=== PATIENT | female | born 1940 | race Caucasian/White ===

== ENCOUNTER 2018-01-19 13:00 | Outpatient (RCR) | payer MEDICARE, OTHER, SELFPAY ==
--- NOTE | 2017-11-21 13:46 | HP.PTEVAL_ITS ---
Patient's Visit Information MIRIAM DURHAM is a 77 year old F referred to Physical Therapy by JOHN Aleman NP.LCODY with a diagnosis of RIGHT TKR. Date of Evaluation: 11/21/17 Physical Therapist: Tarah Fang - Visit Plan Frequency: 2-3x /Week Duration: 4-6 Weeks Plan: GAIT AND TRANSFER TRAINING. RIGHT LE ROM, STRETCHING AND STRENGTHEING. HEP INSTRUCTION. CP NEEDED. - Subjective Subjective: THIS PATIENT PRESENTS TO PT S/P RIGHT TKR 11/08/[address] JAY FOLLOWED BY REHAB ON FOURTH FLOOR AT [facility] UNTIL ABOUT A WEEK AGO. STATES SHE IS DOING GREAT AND ONLY STAYED ON REHAB ABOUT 4 DAYS. 2 CEMENT STEPS WITH RAILING INTO HOME ONE WAY AND 2 STEPS IN THE SIDE DOOR TOO WITH POST TO HANG ON TO. RIGHT NOW SHE IS ON ONE FLOOR AT HER HOME BUT THE HOUSE IS 1.5 STORIES. PATIENT REPORTS SHE HAS BEEN DOING HER EX'S SOMETIMES BUT NONE YESTERDAY DUE TO HAVING A LOT OF COMPANY. SHE HASN'T DONE ANY EX'S LYING DOWN SINCE SHE GOT HOME. SHE REPORTS HER RIGHT KNEE ACHES AND IT IS OUCHY GETTING UP AND DOWN BUT FINE ONCE SHE STARTS WALKING. SHE REPORTS SHE PINCHED SOMETHING IN HER RIGHT BUTTOCK AREA WHILE ON REHAB FLOOR BUT IT HAS EASED UP NOW. 1/10 RIGHT BUTTOCK PAIN NOW AT WORST BUT 0/10 WHEN SHE GETS UP AND GETS THE PRESSURE OFF. RIGHT KNEE PAIN AT WORST 3/10, LEAST 0/10. PATIENT REPORTS SHE HAS A BLISTER AT THE BOTTOM OF HER INCISION THAT IS GETTING BETTER AND THE DOCTOR IS AWARE OF THE BLISTER. OVER-ALL SHE REPORTS EVERYTHING IS FINE FAR SHE KNOWS AND SHE FEELS LIKE SHE IS DOING REALLY GOOD. STATES SHE HAS LESS PAIN NOW THAN BEFORE THE SURGERY. STATES SHE IS HAVING SWELLING IN BOTH OF HER LEGS BUT SHE HAD IT BEFORE SURGERY TOO. PMH: NIDDDM, HYPOTHYROIDISM, HTN, CHRONIC LEFT ANKLE EDEMA FROM OLD INJURY. - Objective THIS PATIENT AMBULATES INDEP'LY INTO PT WITH A FRONT WHEELED WALKER LIMPING ON THE RIGHT LE. SHE HAS A MODERATE AMOUNT OF EDEMA IN HER RIGHT KNEE AND MILD TO MODERATE RIGHT LOWER LEG AND ANKLE EDEMA. HER INCSION LOOKS TO BE WELL HEALING WITHOUT ANY SIGNS OF INFECTION. THE BLISTER MEDIAL TO THE DISTAL 1/3 OF HER INCISION ALSO LOOKS TO BE HEALING. SHE DENIES ANY NUMBNESS AROUND THE KNEE WITH LIGHT TOUCH SENSATION TESTING. LLE STRENGTH: HIP 4-/5, KNEE 4/5, ANKLE 5/ 5. RIGHT HIP 3+/5, KNEE EXT 2+/5, KNEE FLEX 3-/5, ANKLE 5/5. RIGHT KNEE ROM: 25 DEG EXTENSOR LAG IN SITTING. -18 DEG EXT TO 76 DEG FLEX IN SUPINE WITH A HEEL SLIDE. PATIENT HAS DECREASED HEP KNOWLEDGE AND COMPLIANCE. TREATMENT: PATIENT WAS INSTRUCTED IN SUPINE AP'S, QS'S, GS'S, HEEL SLIDES, HIP ABD AND SLR' S. STANDING EX'S REVIEWED. - Goals Goal 1:: DECREASE C/O RIGHT KNEE ACHING Goal Time Frame: 4-6 Weeks Goal 2:: IMPROVE STANDING, WALKING, STAIR CLIMBING, AND ADL FUNCTION Goal Time Frame: 4-6 Weeks Goal 3:: INDEP AND SAFE GAIT WITH LEAST ASSISTIVE DEVICE ON STEPS AND LEVEL SURFACES Goal Time Frame: 4-6 Weeks Goal 4:: INCREASE FUNCTION STRENGTH OF RIGHT LE BY ONE GRADE Goal Time Frame: 4-6 Weeks Goal 5:: INCREASE FUNCTION ROM OF RIGHT KNEE TO FULL EXT AND 100 DEG FLEX Goal Time Frame: 4-6 Weeks - Rehabilitation Potential Rehabilitation Potential: Good - Anticipated Interventions Patient/Client Instruction: Educate patient on: Condition, Plan of Care, Risk Factors, Benefits of Fitness Program For the Purpose of:: To improve self management Therapeutic Exercise to Include: Strength training, Flexibilty training, Gait and locomotor training, Active ROM For the Purpose of:: To increase ROM, To improve muscle performance and motor function, To improve ability to perform ADL's, To improve gait and locomotor functions, To increase flexibility/ROM Cryotherapy (ice pack, ice massage): Yes For the Purpose of:: To decrease pain, To decrease swelling/inflammation Thank you for the opportunity to evaluate your patient. For Medicare and Medicare HMO plans, please review the plan of care and approve it. It will need to be FAXED BACK to us at [phone] for Medicare purposes. Please let me know if there are questions or concerns regarding this plan of care. Physician Signature: Date:
--- NOTE | 2018-01-19 13:21 | HP.PTDCSUM ---
HP - PT D/C Summary It has been my pleasure to treat MIRIAM DURHAM under orders from Eloisa Person, WYATTC, NOMAN for the diagnosis of RIGHT TKR for a total of 17 visit(s). Discharge Date: Please see the following information for a summary of their discharge status. - Subjective Subjective: PATIENT REPORTS SHE IS DOING MUCH BETTER. REPORTS SHE IS ABLE TO DO EVERYTHING SHE NEEDS TO DO AROUND HOME. STATES SHE IS DOING HER HOME PROGRAM ONCE A DAY WITHOUT ANY PROBLEMS BUT THEY ARE CHALLENGING. PATIENT REPORTS SHE APPRECIATES ALL THE GOOD TREATMENT SHE HAS RECEIVED. - Pain Right Knee Pain Intensity (Out of 10): 2 - Overall Improvement % Improvement: 85 - Objective Objective/Function: ALL GOALS MET. RIGHT KNEE ROM IN SUPINE WITH A HEEL SLIDE = -2 DEG EXT TO 112 DEG FLEX WITH PAIN AT THE END OF THE AVAILABLE RANGE. RECOMMEND D/C TO HEP. LEFS HAS IMPROVED FROM 66 TO 70 - Goals Goal 1:: DECREASE C/O RIGHT KNEE ACHING Goal Progress: Goal Met Goal 2:: IMPROVE STANDING, WALKING, STAIR CLIMBING, AND ADL FUNCTION Goal Progress: Goal Met Goal 3:: INDEP AND SAFE GAIT WITH LEAST ASSISTIVE DEVICE ON STEPS AND LEVEL SURFACES Goal Progress: Goal Met Goal 4:: INCREASE FUNCTION STRENGTH OF RIGHT LE BY ONE GRADE Goal Progress: Goal Met Goal 5:: INCREASE FUNCTION ROM OF RIGHT KNEE TO FULL EXT AND 100 DEG FLEX Goal Progress: Goal Met - Plan Plan: D/C TO INDEP HEP. PATIENT IS AGREEABLE TO DISCHARGE. - D/C Information If there are questions or concerns regarding this patient's physical therapy, please feel free to call me at [phone]. Thank you for the referral of this patient. Sincerely, Tarah Fang
== END 2018-01-19 13:26 | disposition home or self-care (01) ==
LOC: PT 13:00
PROVIDERS: Family Provider Family Medicine; PCP Family Medicine; Visit Provider Nurse Practitioner Acute Care
DX: M17.11 Unilateral primary osteoarthritis, right knee (principal); Z96.651 Presence of right artificial knee joint; Z47.1 Aftercare following joint replacement surgery
CPT/HCPCS: 97110; 97530

== ENCOUNTER 2019-11-26 05:23 | Observation (INO) | payer MEDICARE, OTHER, SELFPAY ==
[2019-11-09 13:17] VITALS: BP 134/76; PULSE 82; RESP 16; TEMP 36.5; O2SAT 95; BMI 30.7
--- NOTE | 2019-11-09 13:31 | SDCEKG_ITS ---
Test Reason : Blood Pressure : / mmHG Vent. Rate : 060 BPM Atrial Rate : 060 BPM P-R Int : 198 ms QRS Dur : 092 ms QT Int : 408 ms P-R-T Axes : 060 -48 035 degrees QTc Int : 408 ms Normal sinus rhythm Left anterior fascicular block Abnormal ECG Confirmed by TOMMIE MARTINEZ, WINTER ([id number]), science editor HARDIK LEDESMA ([id number]) on 11/15/2019 9:05:46 AM Referred By: Meet Barker Confirmed By:WINTER REILLY MD
[2019-11-09 15:16] LABS: Hematocrit 43.4 % (37-47); Hemoglobin 14.1 g/dL (12.0-15.0); Mean Corp Hgb Conc 32.5 g/dL (32-36); Mean Corpuscular Hgb 30.7 pg (27.0-32.0); Mean Corpuscular Volume 94.6 fL (81-99); Mean Platelet Vol. 10.7 fl (6.2-12.0); Platelet Count 262 K/mm3 (150-450); RBC Distribution Width CV 13.1 % (11.6-14.6); RBC Distribution Width SD 44.8 fl (35.1-43.9); Red Blood Count 4.59 M/mm3 (4.2-5.4); White Blood Count 8.9 K/mm3 (4.4-11.0)
[2019-11-09 15:40] LABS: Anion Gap 3 (5-15); BUN 10 mg/dL (7-18); BUN/Creat Ratio 14.1 RATIO (10-20); Calcium,Total 9.7 mg/dL (8.5-10.1); Chloride 105 mmol/L (98-107); Creatinine, Serum 0.71 mg/dL (0.55-1.02); EST Glomerular Filtration Rate 84 mL/min (>60); Est Glom Filt Rate - Afr Amer 102 mL/min (>60); Glucose 108 mg/dL (74-106); Sodium Level 140 mmol/L (136-145); Thyroid Stim Hormone (TSH) 2.37 uIU/mL (0.358-3.74)
[2019-11-09 15:45] LABS: Hemoglobin A1c 7.3 % (4.2-6.3)
[2019-11-26] VITALS (12 sets, daily range): BP systolic 100–159; BP diastolic 52–86; PULSE 59–81; RESP 16–18; TEMP 36.2–36.9; O2SAT 89–100; BMI 30.7
[2019-11-26] MEDS: Scopolamine 1mg/72hr Patch 1 PATCH TRANSDERM. (05:55)
[2019-11-26] MEDS: Lactated Ringers 1,000 ML 100 ML IV ×2 (06:00→09:44)
[2019-11-26] MEDS: Magnesium Sulfate 4gm/100mL 4 GM/100 ML IV.SOLN. IV (06:08)
[2019-11-26] MEDS: Acetaminophen 500 MG Tablet 1000 MG PO ×2 (06:08→21:00)
[2019-11-26] MEDS: Celecoxib 200 MG Capsule 400 MG PO (06:10)
[2019-11-26] MEDS: Gabapentin 600 MG Tablet PO (06:10)
[2019-11-26 06:46] LABS: Bedside Glucose 186 mg/dL (70-110)
[2019-11-26] MEDS: Cefazolin 2 GM in 0.9% Normal Saline 100 ML IV (07:15)
--- NOTE | 2019-11-26 07:15 | KNEE_PTH ---
PATIENT: MIRIAM DURHAM LOC: MS3 U#:[id number] AGE/SX: 79/F ROOM: MS315 RE11/26/[address]: Dr. Meet Barker MD : [id number] BED: 1 DIS: 11/27/2019 SPEC #: [id number] RECD: 11/26/19 13:25 STATUS: SU REQ #: [id number] TRACY: 11/26/19 07:[address]: Meet Barker DEPT: SURGICAL PATHOLOGY RECD BY: Mayi Madden ENTERED: 11/26/19 14:47 SP TYPE: TOTAL KNEE OTHR DR: MD Dr. Han Arevalo MD Tissues: Knee, NOS Procedures: Decalcification bone/plaque Surgery Specimen Level IV HEADER OPERATION: Total knee replacement PRE-OP DIAGNOSIS: Osteoarthritis left knee TISSUE SUBMITTED: Left knee bone and tissue MICROSCOPIC DIAGNOSIS Left knee bone and tissue, total knee replacement/resection: Pieces of bone with degenerative osteoarthritic changes. Fibroadipose tissue, fibroconnective tissue and reactive synovial tissue. RADHA:kelsie 11/29/19 MICROSCOPIC DESCRIPTION Slides are reviewed. GROSS DESCRIPTION Received is one container designated bone and soft tissue left knee. The specimen consists of multiple fragments of ritchie-yellow bone measuring in aggregate 12 x 9 x 3 cm. Also in the specimen container are multiple fragments of yellow-white soft tissue measuring in aggregate 7 x 7 x 2 cm. A number of bony fragments contain articular surfaces consistent with tibial plateau and femoral condyle and displaying prominent osteophyte formation, eburnation, and bone erosion. Palliative Nurse sections are submitted in two cassettes as follows: 1 - soft tissue, 2 - bone after decalcification. / RADHA:kelsie 11/26/19 TC:5 [facility]: [id number], [id number]
--- NOTE | 2019-11-26 07:20 | RAD_ITS ---
STUDY: X-RAY - LEFT KNEE REASON FOR EXAM: Female, 79 years old. Post op left total knee TECHNIQUE: 2 view(s) of the knee. COMPARISON: None. FINDINGS: Normal visualized distal femur. Normal visualized proximal tibia and fibula. Normal proximal tibiofibular articulation. The patient is status post left total knee replacement. There is good alignment. Postoperative soft tissue changes. RAD/Knee 1 or 2 Views IMPRESSION: Status post total knee replacement. There is good alignment. Postoperative soft tissue changes. Electronically Signed: Fernando Acosta, at 12:39 EST , Service support ,
--- NOTE | 2019-11-26 08:49 | PRO.PCM_ITS ---
Procedure Report Date of Procedure: 11/26/19 Preoperative diagnosis: Left knee severe primary osteoarthritis Postoperative diagnosis: Same Title of procedure : Left total knee replacement Surgeon: Meet Barker MD Baby Registry Sales Consultant: Gayathri Friedman PA-C Anesthesia: Spinal with adductor canal nerve block Anesthesiologist: Dr. Junie QUAN 50 Complications none Special medications: Ancef, tranexamic acid Indications for surgery: Patient is a 79-year-old [female] with a history of knee arthritis appropriately treated and failed conservative measures and wished to proceed with total knee replacement. Patient was cleared for surgery by the medical doctor and has been evaluated by the anesthesia staff Findings: Intraoperative findings showed severe arthritis of the knee. Patient underwent knee replacement using [employer] total knee components. Size [5] femur, size [4] tibia, [32 x 9] asymmetric X3 patella, size [4-16 CS] X3 tibial polyethylene insert, knee was nicely balanced. Patella tracked well. Patient underwent standard wound closure in layers. Vicryl and strata fix sutures utilized. car rental sales assistant, physician assistant therapy aide, was utilized throughout the entire procedure. They were vital in helping with patient positioning, holding of retractors, exposing the tissues adequately for safe completion of the procedure including cutting of the bone, helping nanotechnology engineering technician appropriate alignment and sizing of the components, implantation of the components, as well as wound closure, bandage application, and safe patient transfer. Without surgical services asst, physician assistant therapy aide, surgical time would have been significantly increased, and surgical outcome could have been less optimal. Description of procedure: The patient was taken to the OR, transferred to the OR table. They were given a spinal anesthetic. Ancef was given IV preoperatively. Tranexamic acid was given IV preoperatively. Well-padded tourniquet was applied to the upper thigh of the operative leg. Nonoperative leg had a PEGGY hose and SCD on throughout. Operative limb was prepped padded and draped in usual orthopedic sterile fashion for the procedure. We began by injecting the pain relieving solution in the anterior superior aspect of the knee region. The limb was exsanguinated, and the tourniquet was applied to 300 mmHg. Made a midline incision through skin, subcutaneous tissue, bringing down us on the extensor mechanism. Medial parapatellar arthrotomy was carried out. Straw-colored joint fluid was evacuated. We raised a sleeve of tissue off the upper medial tibia. Resected some of the infrapatellar fat pad. We remove degenerative medial and lateral meniscus. Removed bone spurs from about the joint. We removed tissue off the anterior aspect of the distal femur. Patella was translated laterally and/or everted as needed throughout the procedure. ACL was resected. PCL was preserved. Collateral ligaments were preserved. Physician placed the retractors and assistant therapy aide held retractors protecting above ligaments throughout the procedure. Drill was placed up the distal femur. Flex guide tequila was stefani alba up the femoral canal. We resected 8 mm off of the distal femur. 6? valgus cut. Next cutting block was applied to the front of the femur. 3? of external rotation . We sized off that block and decided on the appropriate size femur. 4-in-1 cutting block was applied to the distal femur and held in place with 2 pins. Baby Registry Sales Consultant again held retractors to protect the soft tissues while surgeon performed anterior, posterior, and chamfer cuts. Bony fragments were removed. PCL retractor was placed and collateral ligament protectors placed by the surgeon, held by the assistance. Tibial external alignment guide was utilized under standard technique going down the shaft of the tibia, to the base of the second metatarsal. Appropriate posterior slope was built in. Baby Registry Sales Consultant help nanotechnology engineering technician alignment. We went 2 mm off the deficient side of the tibia. Cutting block was held in place with 3 pins. Again checked the external alignment. Tibial cut carried out with a saw while the assistant therapy aide held retractors protecting the soft tissues about the anterior, medial, lateral, and posterior knee. Bone fragment removed. We then sized off the upper tibia with the help of the assistant therapy aide. We then checked flexion extension gaps finding them to be adequate and equal. Next the distal femoral trial was applied. Tibial tray was allowed to freefloat with a 9 mm insert. Knee was flexed and extended an external alignment guide is utilized. Tibial trial was pinned in place. Drill holes were placed into the distal femoral trial and it was removed. Punch was used on the upper tibial component and that was removed. The sclerotic bone was softened with a sharp pin. Bone spurs removed from the posterior medial and posterior lateral aspect of the femur while the assistant therapy aide lifted up on the d istal femur and exposed each compartment. Patella was everted and measured and appropriate resection was carried out while the assistant therapy aide held the guide and patella in good position. Patellar remnant measured to be at or just greater than 14 mm. Patella was sized. Clamp was utilized. 3 drill holes were placed through the clamp held by the assistant therapy aide. Trial patella was placed and removed. Bleeding was controlled at the back of the knee with the bovey. Posterior knee soft tissues were carefully injected with pain relieving solution. Components were checked and open. Two full batches of bone cement were mixed. Knee was thoroughly irrigated by the assistant therapy aide while surgeon fashioned a bone plug that was placed in the femoral canal hole. The bony surfaces cleaned and dried. When the cement was of the appropriate texture the tibia, femur, and then patella was cemented in place. Baby Registry Sales Consultant held retractors exposing the bony surfaces of the tibia and femur which were hammered in position. Patella clamped into position. The excess bone cement removed. A trial insert applied to the tibia. Knee was held in full extension while the cement hardened. While the cement was hardening pain relieving solution was injected throughout the knee. When cement was fully hardened tourniquet was deflated. We re-trialed with the help of the assistant therapy aide and then placed the appropriate sized polyethylene component. We thoroughly irrigated and debrided the knee. Bleeding controlled with the Bovie. Knee was again thoroughly irrigated. Patella noted to track nicely. We repaired the arthrotomy with a combination of #1 Vicryl and #2 strata fix. We did a mid layer of 1 Vicryl and #1 strata fix running. We then did inverted 2-0 vicryl . We then applied Steri-Strips over skin prep. Mepilex dressing applied. PEGGY hose and SCDs applied. Patient was awoken from their anesthetic, transferred back to their own bed and recovery room in satisfactory condition. Second dose of IV Tranexamic acid was given while closing wound. Patient was admitted, appropriate IV antibiotic to be utilized as well as medication for DVT prevention. Hopeful discharge tomorrow. Hospitalist service and Physical therapy will be consulted. This note was generated with [employer] dictation software. It may contain incorrect words, spelling, and punctuation that were not noted in checking the note before signing.
[2019-11-26 09:55] LABS: Bedside Glucose 119 mg/dL (70-110)
--- NOTE | 2019-11-26 11:59 | CON.PCM_ITS ---
Problem List (1) Osteoarthritis of left knee Status: Chronic Qualifiers: Osteoarthritis type: primary Qualified Code(s): M17.12 - Unilateral primary osteoarthritis, left knee (2) HLD (hyperlipidemia) Status: Chronic Qualifiers: Hyperlipidemia type: unspecified Qualified Code(s): E78.5 - Hyperlipidemia, unspecified (3) Hypothyroid Status: Chronic Qualifiers: Hypothyroidism type: unspecified Qualified Code(s): E03.9 - Hypothyroidism, unspecified (4) Diabetes mellitus Status: Chronic Qualifiers: Diabetes mellitus type: type 2 Diabetes mellitus terminologist insulin use: wi th terminologist use Diabetes mellitus complication status: with other specified complication Qualified Code(s): E11.69 - Type 2 diabetes mellitus with other specified complication; Z79.4 - assisted (current) use of insulin (5) HTN (hypertension) Status: Chronic Qualifiers: Hypertension type: essential hypertension Qualified Code(s): I10 - Essential (primary) hypertension Reason for Consult Date of Consultation: 11/26/19 Reason for Consultation: Medical consultation History of Present Illness: The patient is a 79 y/o F w/ PMHx: HTN, HLD, Diabetes mellitus type II, GERD, Hypothyroidism, L Knee OA who presents to the [facility] on 11/26/19 with history of ongoing discomfort, debility despite outpatient interventions w/ 11/26/[address] Barker. Per discussion there were no milton-operative events and EBL minimal. Patient initially following operative intervention on simple facemask but eventually weaned to room air felt likely secondary to anesthetics and pain regimen. From review of records preoperative hemoglobin A1c had been obtained and noted to be 7.3%. Hospitalist service consulted for medical management. Patient notes pain is well controlled currently and similar to even prior before the surgery although may be even lessened. She notes following her right total knee replacement she had significant discomfort and this is much less. She has been up and moving already with a wheeled walker with physical therapy. Past Medical History Past Medical History (Chronic Problems): Chronic Problems Osteoarthritis of left knee (Chronic) HLD (hyperlipidemia) (Chronic) Hypothyroid (Chronic) Diabetes mellitus (Chronic) HTN (hypertension) (Chronic) Allergies Penicillins Adverse Reaction (Verified 11/26/19 05:56) Diarrhea Home Medications: Ambulatory Orders Medication Instructions Recorded Levothyroxine [Synthroid] 88 mcg PO DAILY 04/01/14 Multivit-Min/FA/Lycopene/Lut 1 each PO DAILY 04/01/14 [Centrum Silver Tablet] metFORMIN HCl [Glucophage] 500 mg PO DAILY 04/01/14 Atorvastatin Calcium [Lipitor] 20 mg PO DAILY 10/21/17 L.acidoph,Paracasei, B.lactis 1 each PO DAILY 10/21/17 [Probiotic] Lisinopril [Zestril] 5 mg PO DAILY 10/21/17 Loperamide [Imodium] 2 mg PO DAILY PRN 10/21/17 Acetaminophen [Tylenol Tablet] 650 mg PO Q6H PRN PRN tablet 11/15/17 Omeprazole 20 mg PO DAILY 11/09/19 Oxybutynin [Ditropan] 5 mg PO QHS 11/09/19 Surgical History: - - BLTL, now BL TKR, most recent L TKR during current admission. Psychiatric History: No pertinent psych hx [employer] INSPECTOR History: No pertinent [employer]PECTOR history Lives: Alone Smoking Status: Former smoker - Quit approximately 8 to 9 years prior with intermittent 1 pack/day tobacco usage since the age of 12. 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 Drugs: None - *Family History Maternal History Items: Hypertension, Stroke Paternal History Items: - - Patient's father with history of depression and anxiety status post suicide, no significant history of heart disease, diabetes, cancer otherwise. Review of Systems Constitutional: Reports: Weakness, Fatigue. Denies: Anorexia, Chills, Fever, Malaise, Weight Change HEENT: Reports: Hard of Hearing. Denies: Head Aches, Sinus Congestion, Sinus Drainage Cardiovascular: Denies: Chest Pain, Palpitations Respiratory: Denies: Cough, Shortness of breath at rest, Sputum production Gastrointestinal: Denies: Abdominal Pain, Nausea, Vomiting Genitourinary: Denies: Dysuria Musculoskeletal: Reports: Joint Pain, Joint stiffness, Joint swelling, Joint Tenderness, Leg Pain Skin: Reports: Skin Changes. Denies: Rash, Wounds Neurological: Denies: Numbness, Tingling, Focal weakness Psychiatric: Denies: Anxiety, Depression, Homicidal Ideations, Suicidal Ideations Hematologic/ Lymphatic: Denies: Easy Bruising, Easy Bleeding Subjective: Seated upright in the bedside chair, no acute distress, pain controlled. Objective: Physical Examination: General: awake, alert, oriented x 3 and cooperative, seated upright in bedside chair, no acute distress, baseline hard of hearing. Skin: normal color, turgor, no icterus, cyanosis with dressing in place, clean, dry, intact status post recent left total knee replacement. HEENT: AT/NC, EOMI, PERRLA, MMM. Lungs: CTA bilaterally, moderate effort, mild decrease BL bases, no rales, ronchi or wheezing. Heart: Regular rate and rhythm; no gallop, rub audible. Abdomen: soft, pes, NTTP, ND, normal BS. Extremities: no cyanosis, clubbing, see skin, mild bilateral lower extremity ankle edema, left greater than right, none markedly pitting status post recent left total knee replacement as noted above. Neurological: patient awake, alert, oriented x 3; cognitive function intact; pupils equally reactive to light and accomodation; cranial nerves II-XII grossly normal, moving all 4 extremities although some expected reduction left lower extremity status post recent left total knee replacement, strength moderately to severely global decrease secondary to recent interventions. Psychiatric: affect appears normal, no acute evidence of depressive or anxiety feelings. - Physical Exam Vitals/I&O's: Vital Signs Temp Pulse Resp BP Pulse Ox 97.4 F L 59 L 18 126/63 H 100 11/26/19 10:48 11/26/19 10:48 11/26/19 10:48 11/26/19 10:48 11/26/19 10:48 Oxygen Flow Rate (L/min) 6 Oxygen Delivery Method Simple Mask Weight: 179 lb 3.773 oz Body Mass Index (BMI) 30.7 Finger Stick Blood Glucose 119 Intake and Output for Last 24 Hours 11/24/19 11/25/19 11/26/19 23:59 23:59 23:59 Intake Total 1591.67 / 1591.67 Balance 1591.67 / 1591.67 Laboratory Results 11/26/19 06:05: POC Glucose 186 H 11/26/19 09:51: POC Glucose 119 H Current Medications Acetaminophen (Tylenol) 1,000 mg PO Q8 [facility] Aspirin (Aspirin, Baby) 81 mg PO BID [facility] Atorvastatin Calcium (Lipitor) 20 mg PO HS [facility] Lactated Ringer's () 1,000 mls @ 125 mls/hr IV .Q8H [facility] Cefazolin Sodium () 1 gm in 50 mls @ 150 mls/hr IV Q6H [facility] Stop: 11/27/19 01:34 Sodium Chloride () 250 mls @ 15 mls/hr IV .[id number] PRN PRN Reason: Saline Flush Sodium Chloride () 250 mls @ 15 mls/hr IV .[id number] PRN PRN Reason: Additional IVPB Infusion Insulin Human Lispro (Humalog Kwikpen (Bkc)) 1 - 6 unit SC Q4H PRN PRN; Protocol PRN Reason: BG>/= 180, SEE PROTOCOL Levothyroxine Sodium (Synthroid) 88 mcg PO DAILY@0600 [facility] Lisinopril (Zestril) 5 mg PO DAILY [facility] Loperamide HCl (Imodium) 2 mg PO DAILY PRN PRN Reason: Diarrhea Metformin HCl (Glucophage) 500 mg PO DAILYCM [facility] Morphine Sulfate () 2 - 4 mg IV Q2H PRN PRN PRN Reason: Pain Score 6-10/10 Ondansetron HCl (Zofran) 4 mg IV Q8H PRN PRN PRN Reason: NAUSEA Oxybutynin Chloride (Ditropan) 5 mg PO DAILY [facility] Oxycodone HCl (Oxyir) 5 - 10 mg PO Q4H PRN PRN PRN Reason: Pain Score 4-10/10 Pantoprazole Sodium (Protonix) 20 mg PO DAILY [facility] Senna/Docusate Sodium (Senokot-S, [place]-Colace) 2 tablet PO BID [facility] Sodium Chloride () 10 - 40 ml IV UD PRN PRN Reason: SALINE FLUSH Assessment/Plan All Active Problems Debility (Acute) The patient is a 79 y/o F w/ PMHx: HTN, HLD, Diabetes mellitus type II, GERD, Hypothyroidism, L Knee OA who presents to the [facility] on 11/26/19 with history of ongoing discomfort, debility despite outpatient interventions w/ 11/26/[address] Barker. 1. Severe Osteoarthritis, left knee: Failed conservative therapies and treatments, admitted per Dr. Barker for planned L TKR on 11/26/19, post-operative pain management, bowel regimen, DVT Prophylaxis, PT/OT/CM per Orthopedic surgery discretion. 2. Diabetes mellitus type II: Continued on patient home metformin per orthopedic surgery discretion, continue home insulin insulin sliding scale regimen, ADA diet, recent hemoglobin A1c 7.3%, encourage continued lifestyle and diet changes as needed. 3. Hypertension: Continue home regimen including lisinopril, PRN hydralazine. 4. Hyperlipidemia: Continue home statin regimen. 5. GERD: Continue home Protonix. 6. Hypothyroidism: Continue home synthroid regimen. 7. DVT prophylaxis: SCDs, aspirin 81 mg BID per orthopedic surgery discretion. Code Visit Office Visits / Consults: [id number] IP Consult L3
[2019-11-26 12:35] LABS: Bedside Glucose 119 mg/dL (70-110)
[2019-11-26] MEDS: metFORMIN HCl 500 MG Tablet PO (14:50)
[2019-11-26] MEDS: Cefazolin 1 GM/50 ML BAG IV ×2 (14:50→18:43)
[2019-11-26 16:36] LABS: Bedside Glucose 142 mg/dL (70-110)
[2019-11-26] MEDS: Lactated Ringers 1,000 ML 125 ML IV (17:21)
[2019-11-26] MEDS: Oxybutynin 5 MG Tablet PO (21:00)
[2019-11-26] MEDS: Atorvastatin Calcium 20 MG Tablet PO (21:00)
[2019-11-26] MEDS: Aspirin 81 MG TAB.CHEW PO (21:01)
[2019-11-26 21:40] LABS: Bedside Glucose 148 mg/dL (70-110)
[2019-11-27] MEDS: Cefazolin 1 GM/50 ML BAG IV (00:46)
[2019-11-27 02:15] VITALS: BP 137/69; PULSE 76; RESP 16; TEMP 36.8; O2SAT 93
[2019-11-27] MEDS: Levothyroxine 88 MCG Tablet PO (06:28)
[2019-11-27] MEDS: Acetaminophen 500 MG Tablet 1000 MG PO (06:28)
--- NOTE | 2019-11-27 06:30 | PN_ITS ---
Subjective: Patient doing well, pain controlled, currently icing and recent therapies with decent ambulation with plan discharge today with home therapies to which patient is amenable although mildly anxious. Patient notes that she will just use ice cubes at home and often Yovany wraps ice to the location which was encouraged to do routinely. Patient denies fevers, chills, nausea, emesis, abdominal pain, chest pain or dyspnea. Objective: Physical Examination: General: awake, alert, oriented x 3 and cooperative, seated upright in bedside chair, recent therapy, tolerated well, plan discharged home today which patient is amenable. Skin: normal color, turgor, no icterus, cyanosis with dressing in place, clean, dry, intact status post recent left total knee replacement. HEENT: AT/NC, EOMI, PERRLA, MMM. Lungs: CTA bilaterally, moderate effort, mild decrease BL bases, no rales, ronchi or wheezing. Heart: Regular rate and rhythm; no gallop, rub audible. Abdomen: soft, obese, NTTP, ND, normal BS. Extremities: no cyanosis, clubbing, see skin, mild bilateral lower extremity ankle edema, left greater than right, none markedly pitting status post recent left total knee replacement as noted above. Neurological: patient awake, alert, oriented x 3; cognitive function intact; pupils equally reactive to light and accomodation; cranial nerves II-XII grossly normal, moving all 4 extremities although some expected reduction left lower extremity status post recent left total knee replacement, strength improving, moderately to globally decreased secondary to recent interventions. Psychiatric: affect appears currently fatigued, recent therapies, no acute evidence of depressive or anxiety feelings. Vitals/I&O's: Vital Signs Temp Pulse Resp BP Pulse Ox 98.3 F 76 16 137/69 H 93 11/27/19 02:15 11/27/19 02:15 11/27/19 02:15 11/27/19 02:15 11/27/19 02:15 Oxygen Flow Rate (L/min) 1 Oxygen Delivery Method Nasal Cannula Weight: 179 lb 3.773 oz Body Mass Index (BMI) 30.7 Finger Stick Blood Glucose 119 Intake and Output for Last 24 Hours 11/25/19 11/26/19 11/27/19 23:59 23:59 23:59 Intake Total 3173.18 / 3773.18 1135.75 / 1135.75 Balance 3173.18 / 3773.18 1135.75 / 1135.75 Laboratory Results 11/26/19 06:05: POC Glucose 186 H 11/26/19 09:51: POC Glucose 119 H 11/26/19 12:26: POC Glucose 119 H 11/26/19 16:31: POC Glucose 142 H 11/26/19 21:34: POC Glucose 148 H 11/27/19 05:58: WBC Pending, RBC Pending, Hgb Pending, Hct Pending, MCV Pending, MCH Pending, MCHC Pending, RDW Std Deviation Pending, RDW Coeff of Jameson Pending, Plt Count Pending 11/27/19 05:58: Sodium Pending, Potassium Pending, Chloride Pending, Carbon Dioxide Pending, Anion Gap Pending, BUN Pending, Creatinine Pending, Est GFR (MDRD) Af Amer Pending, Est GFR (MDRD) Non-Af Pending, BUN/Creatinine Ratio Pending, Glucose Pending, Calcium Pending Current Medications Acetaminophen (Tylenol) 1,000 mg PO Q8 [facility] Last Admin: 11/26/19 21:00 Dose: 1,000 mg Documented by: Aspirin (Aspirin, Baby) 81 mg PO BID [facility] Last Admin: 11/26/19 21:01 Dose: 81 mg Documented by: Atorvastatin Calcium (Lipitor) 20 mg PO HS [facility] Last Admin: 11/26/19 21:00 Dose: 20 mg Documented by: Lactated Ringer's () 1,000 mls @ 125 mls/hr IV .Q8H [facility] Last Admin: 11/27/19 02:24 Dose: Not Given Documented by: Sodium Chloride () 250 mls @ 15 mls/hr IV .[id number] PRN PRN Reason: Saline Flush Sodium Chloride () 250 mls @ 15 mls/hr IV .[id number] PRN PRN Reason: Additional IVPB Infusion Insulin Human Lispro (Humalog Kwikpen (Bkc)) 0 unit SC [facility]; Protocol Last Admin: 11/26/19 21:36 Dose: Not Given Documented by: Levothyroxine Sodium (Synthroid) 88 mcg PO DAILY@0600 [facility] Lisinopril (Zestril) 5 mg PO DAILY [facility] Loperamide HCl (Imodium) 2 mg PO DAILY PRN PRN Reason: Diarrhea Metformin HCl (Glucophage) 500 mg PO DAILYCM [facility] Last Admin: 11/26/19 14:50 Dose: 500 mg Documented by: Morphine Sulfate () 2 - 4 mg IV Q2H PRN PRN PRN Reason: Pain Score 6-10/10 Ondansetron HCl (Zofran) 4 mg IV Q8H PRN PRN PRN Reason: NAUSEA Oxybutynin Chloride (Ditropan) 5 mg PO DAILY@2200 [facility] Last Admin: 11/26/19 21:00 Dose: 5 mg Documented by: Oxycodone HCl (Oxyir) 5 - 10 mg PO Q4H PRN PRN PRN Reason: Pain Score 4-10/10 Pantoprazole Sodium (Protonix) 20 mg PO DAILY [facility] Senna/Docusate Sodium (Senokot-S, Ying-Colace) 2 tablet PO BID [facility] Last Admin: 11/26/19 21:01 Dose: Not Given Documented by: Sodium Chloride () 10 - 40 ml IV UD PRN PRN Reason: SALINE FLUSH Medical Necessity - Tobacco Use Smoking Status: Former smoker - Quit approximately 8 to 9 years prior with intermittent 1 pack/day tobacco usage since the age of 12. Tobacco Use: Non-smoker Assessment/Plan All Active Problems Debility (Acute) The patient is a 79 y/o F w/ PMHx: HTN, HLD, Diabetes mellitus type II, GERD, Hypothyroidism, L Knee OA who presents to the [facility] on 11/26/19 with history of ongoing discomfort, debility despite outpatient interventions w/ 11/26/[address] Barker. 1. Severe Osteoarthritis, left knee: Failed conservative therapies and treatments, admitted per Dr. Barker for planned L TKR on 11/26/19, post-operative pain management, bowel regimen, DVT Prophylaxis, PT/OT/CM per Orthopedic surgery discretion. Therapies progressing well, plan discharge today to which medicine service is amenable with planned outpatient therapies. 2. Diabetes mellitus type II: Continued on patient home metformin per orthopedic surgery discretion, continue home insulin insulin sliding scale regimen, ADA diet, recent hemoglobin A1c 7.3%, encouraged continued lifestyle and diet changes as needed. 3. Hypertension: Continue home regimen including lisinopril, PRN hydralazine. 4. Hyperlipidemia: Continue home statin regimen. 5. GERD: Continue home Protonix. 6. Hypothyroidism: Continue home synthroid regimen. 7. DVT prophylaxis: SCDs, aspirin 81 mg BID per orthopedic surgery discretion. Code Visit Inpatient E&M: 87507 Subs Hosp L2
[2019-11-27 06:32] LABS: Hematocrit 36.9 % (37-47); Mean Corp Hgb Conc 32.5 g/dL (32-36); Mean Corpuscular Hgb 30.4 pg (27.0-32.0); Mean Corpuscular Volume 93.4 fL (81-99); Mean Platelet Vol. 10.3 fl (6.2-12.0); Platelet Count 212 K/mm3 (150-450); RBC Distribution Width CV 13.1 % (11.6-14.6); RBC Distribution Width SD 44.9 fl (35.1-43.9); Red Blood Count 3.95 M/mm3 (4.2-5.4); White Blood Count 9.8 K/mm3 (4.4-11.0)
[2019-11-27] MEDS: Insulin Lispro 100 UNIT/ML INSULN.PEN SC ×2 (06:33→11:23)
--- NOTE | 2019-11-27 06:50 | PN.ORTHO_ITS ---
Subjective: Patient is doing well postop day #1 from a left total knee replacement. She started and worked with physical therapy yesterday. Pain in the left knee has been well controlled. She denies chest pain shortness of breath dizziness or calf pain seems to be doing well overall she would like to consider discharged home later today. Objective: Inspection of left lower extremity is without gross deformity there is a silver Mepilex dressing in place with thigh-high PEGGY stockings on without active drainage erythema warmth or signs of infection negative Susanna bilaterally without signs of DVT pedal pulses present and equal bilaterally sensation intact light touch. Patient is able to actively plantar and dorsiflex bilateral feet against resistance neurovascularly intact. - Physical Exam Vitals/I&O's: Vital Signs Temp Pulse Resp BP Pulse Ox 98.3 F 76 16 137/69 H 93 11/27/19 02:15 11/27/19 02:15 11/27/19 02:15 11/27/19 02:15 11/27/19 02:15 Oxygen Flow Rate (L/min) 1 Oxygen Delivery Method Nasal Cannula Weight: 81.3 kg Body Mass Index (BMI) 30.7 Finger Stick Blood Glucose 119 Intake and Output for Last 24 Hours 11/25/19 11/26/19 11/27/19 23:59 23:59 23:59 Intake Total 3173.18 / 3773.18 1135.75 / 1135.75 Balance 3173.18 / 3773.18 1135.75 / 1135.75 Laboratory Results 11/26/19 09:51: POC Glucose 119 H 11/26/19 12:26: POC Glucose 119 H 11/26/19 16:31: POC Glucose 142 H 11/26/19 21:34: POC Glucose 148 H 11/27/19 05:58: WBC 9.8, RBC 3.95 L, Hgb 12.0, Hct 36.9 L, MCV 93.4, MCH 30.4, MCHC 32.5, RDW Std Deviation 44.9 H, RDW Coeff of Jameson 13.1, Plt Count 212, MPV 10.3 11/27/19 05:58: Sodium Pending, Potassium Pending, Chloride Pending, Carbon Dioxide Pending, Anion Gap Pending, BUN Pending, Creatinine Pending, Est GFR (MDRD) Af Amer Pending, Est GFR (MDRD) Non-Af Pending, BUN/Creatinine Ratio Pending, Glucose Pending, Calcium Pending Current Medications Acetaminophen (Tylenol) 1,000 mg PO Q8 [facility] Last Admin: 11/27/19 06:28 Dose: 1,000 mg Documented by: Aspirin (Aspirin, Baby) 81 mg PO BID [facility] Last Admin: 11/26/19 21:01 Dose: 81 mg Documented by: Atorvastatin Calcium (Lipitor) 20 mg PO HS [facility] Last Admin: 11/26/19 21:00 Dose: 20 mg Documented by: Sodium Chloride () 250 mls @ 15 mls/hr IV .[id number] PRN PRN Reason: Saline Flush Sodium Chloride () 250 mls @ 15 mls/hr IV .[id number] PRN PRN Reason: Additional IVPB Infusion Insulin Human Lispro (Humalog Kwikpen (Bkc)) 0 unit SC [facility]; Protocol Last Admin: 11/27/19 06:33 Dose: 1 unit Documented by: Levothyroxine Sodium (Synthroid) 88 mcg PO DAILY@0600 [facility] Last Admin: 11/27/19 06:28 Dose: 88 mcg Documented by: Lisinopril (Zestril) 5 mg PO DAILY [facility] Loperamide HCl (Imodium) 2 mg PO DAILY PRN PRN Reason: Diarrhea [facility] Last Admin: 11/26/19 14:50 Dose: 500 mg Documented by: Morphine Sulfate () 2 - 4 mg IV Q2H PRN PRN PRN Reason: Pain Score 6-10/10 Ondansetron HCl (Zofran) 4 mg IV Q8H PRN PRN PRN Reason: NAUSEA Oxybutynin Chloride (Ditropan) 5 mg PO DAILY@2200 [facility] Last Admin: 11/26/19 21:00 Dose: 5 mg Documented by: Oxycodone HCl (Oxyir) 5 - 10 mg PO Q4H PRN PRN PRN Reason: Pain Score 4-10/10 Pantoprazole Sodium (Protonix) 20 mg PO DAILY [facility] Senna/Docusate Sodium (Senokot-S, Ying-Colace) 2 tablet PO BID [facility] Last Admin: 11/26/19 21:01 Dose: Not Given Documented by: Sodium Chloride () 10 - 40 ml IV UD PRN PRN Reason: SALINE FLUSH Medical Necessity - Tobacco Use Smoking Status: Former smoker - Quit approximately 8 to 9 years prior with intermittent 1 pack/day tobacco usage since the age of 12. Tobacco Use: Non-smoker Assessment/Plan All Active Problems Debility (Acute) 1. Status post left total knee replacement postop day #1 2. Continue OxyIR and Tylenol for pain control 3. Begin PT/OT weightbearing as tolerated left lower extremity with a walker 4. DVT prophylaxis bilateral teds SCDs and baby aspirin twice daily for 1 month postoperative 5. CBC results reviewed. BMP results still pending will review upon posting 6. Encourage incentive spirometry 7. Continue discharge planning with case management 9. Continue postoperative medical management per hospitalist 10. Patient is orthopedically stable and okay for discharge to home today if she is cleared medically having adequate pain control and doing well with physical therapy we will see her in the office 9 days postoperative for reassessment. Continue with tight glycemic control in the perioperative period
[2019-11-27 06:54] LABS: Anion Gap 5 (5-15); BUN 8 mg/dL (7-18); BUN/Creat Ratio 11.9 RATIO (10-20); Calcium,Total 8.2 mg/dL (8.5-10.1); Chloride 107 mmol/L (98-107); Creatinine, Serum 0.67 mg/dL (0.55-1.02); EST Glomerular Filtration Rate 90 mL/min (>60); Est Glom Filt Rate - Afr Amer 108 mL/min (>60); Glucose 143 mg/dL (74-106); Potassium 4.4 mmol/L (3.5-5.1); Sodium Level 140 mmol/L (136-145)
[2019-11-27 06:56] LABS: Bedside Glucose 162 mg/dL (70-110)
--- NOTE | 2019-11-27 06:58 | DCINST_ITS ---
Discharge Diet: 1800 Calorie Control Diet Discharge Activity: May Not Drive, May not drive while taking narcotic pain medications., Use Walker May shower in (days): 2 - Okay to shower over Mepilex dressing Ice area for (Minutes): 20 - every hour while awake. Weight Bearing Status: Weight bearing as tolerated Elevate: Operative Extremity Additional Activity Instructions:: Wear elastic stockings for 2 weeks after your surgery. See postoperative pink sheet Call your doctor if your incision/area has: Continuous Slow Oozing, Sudden Increased Bleeding, Increased Pain/ Swelling, Increased Redness, Foul Smelling Discharge Call your doctor if you observe: Fever of 101 or Higher, Coldness, Increased Pain, Numbness or Tingling, Change in Color, Shortness of breath, Chest pain, Calf discomfort, Uncontrolled pain Additional Dressing/Incision Instructions:: See postoperative pink sheet Allergies/Adverse Reactions: Allergies Penicillins Adverse Reaction (Verified 11/26/19 05:56) Diarrhea Medications to take at Discharge Levothyroxine [Synthroid] 88 mcg PO DAILY 04/01/14 Multivit-Min/FA/Lycopene/Lut [Centrum Silver Tablet] 1 each PO DAILY 04/01/14 metFORMIN HCl [Glucophage] 500 mg PO DAILY 04/01/14 Atorvastatin Calcium [Lipitor] 20 mg PO DAILY 10/21/17 L.acidoph,Paracasei, B.lactis [Probiotic] 1 each PO DAILY 10/21/17 Lisinopril [Zestril] 5 mg PO DAILY 10/21/17 Loperamide [Imodium] 2 mg PO DAILY PRN 10/21/17 Omeprazole 20 mg PO DAILY 11/09/19 Oxybutynin [Ditropan] 5 mg PO QHS 11/09/19 Acetaminophen [Tylenol] 1,000 mg PO Q8 #60 tab 11/27/19 Aspirin [Aspirin, Baby] 81 mg PO BID #60 tab.chew 11/27/19 Oxycodone [Oxyir] 5 - 10 mg PO Q4H PRN PRN 7 Days #56 tab 11/27/19 Senna/Docusate Sodium [Senokot-S] 2 tab PO BID #30 tab 11/27/19 The following prescriptions were given: Aspirin [Aspirin, Baby] 81 mg PO BID #60 tab.chew Prescription Printed Oxycodone [Oxyir] 5 - 10 mg PO Q4H PRN PRN 7 Days #56 tab PRN Reason: Pain Score 4-08/09 Prescription Printed Senna/Docusate Sodium [Senokot-S] 2 tab PO BID #30 tab Prescription Printed Acetaminophen [Tylenol] 1,000 mg PO Q8 #60 tab Prescription Printed Primary Care Physician: Han Conn MD [Primary Care Provider] - Test Results: Test results from this visit will be discussed in further detail at your follow- up appointment, if applicable. Proposed Discharge Date: 11/27/19
[2019-11-27 07:58] VITALS: BP 131/72; PULSE 85; RESP 16; TEMP 37.3; O2SAT 92
[2019-11-27] MEDS: Senna/Docusate Sodium 1 Tablet 2 TABLET PO (08:28)
[2019-11-27] MEDS: Pantoprazole Sodium 20 MG Tablet PO (08:28)
[2019-11-27] MEDS: metFORMIN HCl 500 MG Tablet PO (08:28)
[2019-11-27] MEDS: Aspirin 81 MG TAB.CHEW PO (08:28)
[2019-11-27] MEDS: Lisinopril 5 MG Tablet PO (08:29)
--- NOTE | 2019-11-27 10:40 | CASEMGMT ---
RN HAN Face to Face with patient for initial transition planning/care coordination assessment. RN CM introduced self and role at [facility]. Patient sitting in chair, alert and oriented, daughter at bedside. Patient willing to participate in assessment and is able to answer all questions appropriately. Care providers, pharmacy, and demographics verified. Patient wishes to discharge home and is setup with [facility] for outpatient therapy. Patient states she has no further needs or concerns at this time. CM to follow for discharge planning needs that may arise. PCP: Fabien Specialists: chava Barker Pharmacy: [facility] Insurance: [facility] Prescription Benefit: yes Living Will/HPOA: yes, daughter Nicki Sinclair LNOK: daughters Living Arrangements: Patient lives alone in 1.5 story house with bed and bath on first floor. 3 steps with railing to enter the home. Transportation: Daughter DME/HHC: Patient has walker, cane, BSC, and shower chair at home. Disposition Plan: Patient to discharge home with outpatient therapy, family support, and follow-up plans in place. Karena ZARAGOZA, RN, CM
[2019-11-27] MEDS: oxyCODONE 5 MG Tablet PO (11:22)
[2019-11-27 11:46] LABS: Bedside Glucose 171 mg/dL (70-110)
[2019-11-27 11:52] VITALS: BP 134/88; PULSE 94; RESP 16; TEMP 37.1; O2SAT 92
== END 2019-11-27 13:58 | disposition home or self-care (01) ==
LOC: MS3 11-27 08:02 → ACINP 11-27 09:57 → MS3 11-27 09:57
PROVIDERS: Admitting Provider Orthopaedic Surgery; Family Provider Family Medicine; PCP Family Medicine; Referring Provider Orthopaedic Surgery; Visit Provider Orthopaedic Surgery
PROC: (CPT 27447; principal; 2019-11-26 06:50)
DX: M17.12 Unilateral primary osteoarthritis, left knee (principal); E78.5 Hyperlipidemia, unspecified; E03.9 Hypothyroidism, unspecified; E11.9 Type 2 diabetes mellitus without complications; I10 Essential (primary) hypertension; Z79.899 Other long term (current) drug therapy; K21.9 Gastro-esophageal reflux disease without esophagitis; Z87.891 Personal history of nicotine dependence
CPT/HCPCS: 01400; 27447; 64447; 36415; 73560; 80048; 82962; 83036; 84443; 85027; 87081; 88305; 88311; 93005; 96361; 96365; 96366; 97110; 97161; 97166; 97530; 97535; 99218; 99251; C1776; J7120; G0378; G0379; G0463; J2405

== ENCOUNTER 2020-11-28 13:30 | Outpatient (RCR) | payer MEDICARE, OTHER, SELFPAY ==
[2019-11-26 10:48] VITALS: BMI 30.7
== END 2020-11-28 23:59 ==
LOC: IMMUN 13:30
PROVIDERS: PCP Family Medicine; Visit Provider Family Medicine
DX: Z23 Encounter for immunization (principal)
CPT/HCPCS: 0011A; 0012A; 91301

== ENCOUNTER 2022-10-26 07:20 | Inpatient (IN) | payer MEDICARE, OTHER, SELFPAY ==
[2022-10-26] VITALS (32 sets, daily range): BP systolic 88–195; BP diastolic 56–126; PULSE 72–136; RESP 12–42; TEMP 36.3–37.3; O2SAT 84–97; BMI 28.3
--- NOTE | 2022-10-26 07:34 | RAD_ITS ---
STUDY: X-RAY CHEST REASON FOR EXAM: Female, 82 years old. sob TECHNIQUE: Single AP portable view of the chest. COMPARISON: None. FINDINGS: Reticular interstitial opacities throughout the lungs consistent with interstitial pulmonary edema. There is no demonstrated pleural abnormality. There is moderate cardiac enlargement. Normal mediastinum and alida. There is prominence of the pulmonary hilar arteries and peripheral pulmonary arteries, consistent with congestive heart failure (CHF). There is atherosclerotic tortuosity of the aortic arch and descending thoracic aorta. Normal visualized thoracic spine. Normal visualized ribs, clavicles, and shoulders. There is no demonstrated abnormality of the visualized soft tissue structures of the upper abdomen. RAD/Chest 1 View (Portable) IMPRESSION: Moderate congestive heart failure. Electronically Signed: Benny Lucia MD at 8:56 EST ,
--- NOTE | 2022-10-26 07:35 | ED.VIS.DYS ---
HPI History of Present Illness Chief Complaint: Shortness of Breath Informant: patient, family and EMS Onset/Context/Timing Onset: Days (3) Context: gradual and onset Timing: Continuous Quality: Positive for - (can't breath) Current Severity: Severe Maximum Severity: Severe Worsened by: - (unk) Relieved by: Nothing Associated Symptoms Negative for cough Chest Pain: Positive for None Narrative Narrative: Patient presents by EMS in respiratory distress, hypoxic for them, states this started about 3 days ago and has progressively worsened with regards to dyspnea. No chest pain. She denies a cough or fevers, but she is not able to provide good history because she is so dyspneic. Daughter states she did not know any of this until this morning when the patient called and told her that she could not breathe. Patient denies a history of heart or lung problems that she knows of, she takes medications for diabetes. [facility] Medical History Diabetes Hypothyroidism Home Medications atorvastatin 20 mg tablet 20 mg PO DAILY 10/26/22 [History Last Taken Unknown] levothyroxine 88 mcg tablet 88 mcg PO DAILY 10/26/22 [History Last Taken Unknown] lisinopril 5 mg tablet 5 mg PO DAILY 10/26/22 [History Last Taken Unknown] metformin 500 mg tablet 500 mg PO DAILY 10/26/22 [History Last Taken Unknown] Allergy/AdvReac Type Severity Reaction Status Date / Time Penicillins [PCN] AdvReac Upset Verified 10/26/22 07:29 Stomach Social History Smoking Status: Unknown if ever smoked ROS ROS ED Review of Systems ROS Unobtainable: other Details: due to dyspnea/acuity Constitutional Constitutional ED: Reports malaise; Denies chills or fever(s) ENT ENT ED: Denies rhinorrhea or sore throat Cardiovascular Cardiovascular: Reports as per HPI and leg edema; Denies chest pain Respiratory/Chest Respiratory/Chest: Reports dyspnea; Denies cough or sputum EXAM Physical Exam Const Vital Signs: 10/26/22 07:22 10/26/22 07:26 10/26/22 07:27 Temperature 99 F Temperature Source Temporal Pulse Rate 136 H Respiratory Rate 42 H Respiratory Pattern Blood Pressure 195/126 H Blood Pressure Mean 149 Pulse Ox 87 88 89 Oxygen Delivery Method Room Air Nasal Cannula Nasal Cannula Oxygen Flow Rate (L/min) 2 4 Fraction of Inspired Oxygen (FIO2) 10/26/22 07:49 10/26/22 07:51 10/26/22 07:55 Temperature Temperature Source Pulse Rate 117 H Respiratory Rate 34 H Respiratory Pattern Tachypnea Blood Pressure Blood Pressure Mean Pulse Ox 96 96 Oxygen Delivery Method Bi-pap Bi-pap Oxygen Flow Rate (L/min) Fraction of Inspired Oxygen (FIO2) 60 10/26/22 07:40 10/26/22 08:13 10/26/22 08:51 Temperature Temperature Source Pulse Rate 117 H 109 H 114 H Respiratory Rate 34 H 36 H 26 H Respiratory Pattern Tachypnea Blood Pressure 171/88 H 141/85 H Blood Pressure Mean 115 103 Pulse Ox 93 93 Oxygen Delivery Method Bi-pap Bi-pap Oxygen Flow Rate (L/min) Fraction of Inspired Oxygen (FIO2) Positive well nourished and well developed Constitutional Narrative: In distress, diaphoretic, unable to get comfortable and anxious General Appearance ED: well developed HEENT Reports moist mucous membranes normocephalic and atraumatic Eyes PERRL and EOMs intact bilaterally Neck full ROM and supple Neck Narrative: +JVD Resp Resp Narrative: Acute respiratory distress speaking in 1-3 word sentences with bibasilar Rales and wheezes Auscultation: rales bilateral base Cardio regular rate and regular rhythm Rate: tachycardic GI non-tender and non-distended Auscultation: normoactive bowel sounds Palpation: soft Back/Spine no CVA tenderness General Back: other FROM Extremity normal to inspection General Extremety ED: Yes edema; Negative for pulses abnormal or tenderness General Extremity: edema bilateral lower extremity Details: mild; Negative for pulses abnormal Neuro oriented x3, CN's II-XII intact bilaterally and no sensory deficits noted Sensorium / Orientation: awake and alert Motor Exam: strength 5/5 throughout Psych Mood & Affect: anxious Skin no rashes or lesions noted and no wounds MDM MDM MDM Narrative Medical decision making narrative: Respiratory at the bedside just after my evaluation to perform aerosol, ABG, and BiPAP. Suspecting CHF initially, patient was additionally given IV Lasix 40 mg. The ABG was performed just prior to putting her on BiPAP. BiPAP is helping her respirations but she is still dyspneic, she is able to lie down with it. She has a significant respiratory acidosis, with hypercapnia. We have her oxygenating well and we titrated it down accordingly. While on BiPAP, her vital signs did improve, and her work-up is consistent with acute congestive heart failure; since her blood pressure at this time 0850 has come down to 141/85, I do not think we need to give her additional medications to help improve her blood pressure. Her troponin is elevated. She does have a leukocytosis and a lactic acidosis, however my interpretation of one-view portable chest x-ray is consistent with congestive heart failure more likely than infection. She is breathing much better on BiPAP does not require intubation right now luckily. Discussed with Dr. Cruz with cardiology, he will consult in the hospital, recommends no other medications or anticoagulation at this time. Lab Data Attestation: I reviewed the patient's lab results. Labs: Laboratory Results - last 24 hr 10/26/22 10/26/22 10/26/22 07:32 07:32 07:32 WBC 14.8 H RBC 4.76 Hgb 14.4 Hct 44.9 MCV 94.3 MCH 30.3 MCHC 32.1 RDW Std Deviation 47.3 H RDW Coeff of Jameson 13.5 Plt Count 270 MPV 10.7 Immature Gran % (Auto) 0.400 Neut % (Auto) 69.7 Lymph % (Auto) 21.8 Wagoner % (Auto) 6.7 Eos % (Auto) 0.7 Baso % (Auto) 0.7 Absolute Neuts (auto) 10.3 H Absolute Lymphs (auto) 3.22 Nucleated RBC % 0 Sodium 136 Potassium 4.5 Chloride 103 Carbon Dioxide 24.0 Anion Gap 9 BUN 8 Creatinine 0.88 Estim Creat Clear Calc 42.82 Est GFR (MDRD) Af Amer 79 Est GFR (MDRD) Non-Af 65 BUN/Creatinine Ratio 9.1 L Glucose 261 H Lactic Acid 4.0 H* Calcium 9.1 Troponin I High Sens 292 H* B-Natriuretic Peptide 10/26/22 07:32 WBC RBC Hgb Hct MCV MCH MCHC RDW Std Deviation RDW Coeff of Jameson Plt Count MPV Immature Gran % (Auto) Neut % (Auto) Lymph % (Auto) Wagoner % (Auto) Eos % (Auto) Baso % (Auto) Absolute Neuts (auto) Absolute Lymphs (auto) Nucleated RBC % Sodium Potassium Chloride Carbon Dioxide Anion Gap BUN Creatinine Estim Creat Clear Calc Est GFR (MDRD) Af Amer Est GFR (MDRD) Non-Af BUN/Creatinine Ratio Glucose Lactic Acid Calcium Troponin I High Sens B-Natriuretic Peptide 1582.5 H ABG Data ABG results: ABG 10/26/22 07:58 Specimen Type ART Sample Site R Radial pH 7.19 L* Bicarbonate Actual 22.4 Total CO2 24 Base Excess -6 L O2 Saturation 98 ABG pCO2 58.7 H ABG pO2 129 H Liter Flow 5.0 Crit Call To/Read Back Yes Radiography Diagnostic Testing: Clinical Impression(s) from Imaging Studies Chest X-Ray 10/26/22 07:34 IMPRESSION: Moderate congestive heart failure. Electronically Signed: Benny Lucia MD at 8:56 EST , Rhythm Strip Rhythm Strip: Sinus Tach Rate: 130 Ectopy: PVC(s) EKG Initial EKG: Attestation: I personally reviewed and interpreted this EKG as follows: Interpretation: No Acute Injury Pattern, Sinus Tachycardia, LAFB and Inverted T-Waves (laterally) Prior EKG tracings: available for review Prior: Changed Critical Care Time Critical Care Time: Yes Critical care time (excluding procedures): 30-74 minutes (40 min), Including time spent:, Discussing w/Patient &/or Family/Graphics Coordinator, Discussing w/Consultants, Arranging Admission or Transfer and Performing Direct Patient Care at Bedside Discharge Plan Dx/Rx/DC Orders Clinical Impression: Acute respiratory failure with hypoxia and hypercapnia, Acute CHF, Elevated troponin Disposition Disposition: Acute Care [facility]
[2022-10-26 07:45] LABS: Absolute Lymphocyte Count 3.22 X10^3/uL (0.83-4.51); Absolute Neutrophil Count 10.3 X10^3/uL (2.0-7.7); Basophil# 0.11 X10^3/uL; Basophil% 0.7 % (0-1); Eosinophils% 0.7 % (0-5); Hematocrit 44.9 % (37-47); Hemoglobin 14.4 g/dL (12.0-15.0); Lymphocyte # 3.22 X10^3/ul (0.83-4.51); Lymphocyte % 21.8 % (19-41); Mean Corp Hgb Conc 32.1 g/dL (32-36); Mean Corpuscular Hgb 30.3 pg (27.0-32.0); Mean Corpuscular Volume 94.3 fL (81-99); Mean Platelet Vol. 10.7 fl (6.2-12.0); Monocyte# 0.99 X10^3/uL; Monocyte% 6.7 % (0-10); NRBC Flagged by Analyzer 0 % (0-5); Neutrophil # 10.32 X10^3/uL (2.7-7.7); Neutrophil % 69.7 % (47-70); Platelet Count 270 K/mm3 (150-450); RBC Distribution Width CV 13.5 % (11.6-14.6); RBC Distribution Width SD 47.3 fl (35.1-43.9); Red Blood Count 4.76 M/mm3 (4.2-5.4); White Blood Count 14.8 K/mm3 (4.4-11.0)
[2022-10-26] MEDS: Furosemide 40 MG/4 ML Vial IV (07:50)
[2022-10-26 08:06] LABS: Base Excess -6 mmol/L (-2 to +2); Bicarbonate 22.4 mmol/L (22-26); Blood Gas Specimen Type ART; PO2 129 mmHG (75-100); SITE R Radial; SO2 98 % (95-99); Total Carbon Dioxide 24 mmol/L; pCO2 58.7 mmHg (35-45); pH 7.19 (7.35-7.45)
[2022-10-26 08:07] LABS: Anion Gap 9 (5-15); BUN 8 mg/dL (7-18); BUN/Creat Ratio 9.1 RATIO (10-20); Calcium,Total 9.1 mg/dL (8.5-10.1); Chloride 103 mmol/L (98-107); Creatinine, Serum 0.88 mg/dL (0.55-1.02); EST Glomerular Filtration Rate 65 mL/min (>60); Est Glom Filt Rate - Afr Amer 79 mL/min (>60); Estimated Creatinine Clearance 42.82 ml/min; Glucose 261 mg/dL (74-106); Potassium 4.5 mmol/L (3.5-5.1); Sodium Level 136 mmol/L (136-145); Troponin-I HS 292 pg/mL (3.0-54.0)
[2022-10-26] MEDS: Albuterol 2.5 MG/3 ML VIAL.NEB. INHALATION (08:12)
[2022-10-26] MEDS: Aspirin 81 MG TAB.CHEW 162 MG PO (09:14)
[2022-10-26 10:30] LABS: Base Excess 0 mmol/L (-2 to +2); Bicarbonate 24.2 mmol/L (22-26); Blood Gas Specimen Type ART; FI02 60; Mode BiLevel; PEEP 6; PO2 97 mmHG (75-100); SITE R Radial; SO2 98 % (95-99); Total Carbon Dioxide 25 mmol/L; pCO2 35.2 mmHg (35-45); pH 7.45 (7.35-7.45)
--- NOTE | 2022-10-26 11:04 | ECHOCS_ITS ---
Reason For Study: CHF Procedure This was a 2D Doppler, Color Flow transthoracic echocardiogram. The study was technically difficult. Contrast injection was performed. Exam performed portable in ED. Left Ventricle Normal LV size. The left ventricular ejection fraction is 20 %. Stage 2 diastolic dysfunction. Right Ventricle Normal right ventricle. Atria The left atrium is moderately enlarged. Normal right atrium. Mitral Valve Mild (1+) mitral valve insufficiency. Tricuspid Valve Mild to moderate (1-2+) tricuspid valve insufficiency. Severe pulmonary hypertension. Aortic Valve Trisinus/trileaflet aortic valve. Moderate (2+) aortic valve insufficiency. Pulmonic Valve The pulmonic valve is not well visualized. Great Vessels Normal sized aortic root. Pericardium/Pleural No pericardial effusion. Medication Diluted definity 2ml given slow IV push to enhance endocardial definition. MMode/2D Measurements & Calculations LVIDd: 4.2 cm IVSd: 1.0 cm Ao root diam: 3.5 cm LVIDs: 3.2 cm LVPWd: 0.86 cm LA dimension: 4.6 cm RVDd: 3.3 cm FS: 25.6 % LAV(MOD-bp): 54.6 ml LVAd ap4: 42.4 cm2 SV(MOD-sp4): 39.5 ml LAV(MOD-bp) Indexed: 29.6 ml/m2 LVLd ap4: 8.8 cm LAV(MOD-sp2): 53.7 ml EDV(MOD-sp4): 166.9 ml LAV(MOD-sp4): 46.1 ml EDV(sp4-el): 174.7 ml LVAs ap4: 35.3 cm2 LVLs ap4: 8.0 cm ESV(MOD-sp4): 127.4 ml ESV(sp4-el): 132.1 ml EF(MOD-sp4): 23.7 % EF(sp4-el): 24.4 % SV(sp4-el): 42.6 ml LA A4 area: 17.4 cm2 RA A4 area: 13.0 cm2 Time Measurements MV dec time: 0.16 sec Doppler Measurements & Calculations MV E max keo: 85.5 cm/sec Lat Peak E' Keo: 7.1 cm/sec Med Peak E' Keo: 3.8 cm/sec MV A max keo: 104.4 cm/sec E/E' lat: 12.0 E/E' med: 22.4 MV E/A: 0.82 MV V2 max: 106.8 cm/sec MV P1/2t max keo: 91.1 cm/sec Ao V2 max: 91.9 cm/sec MV max P.6 mmHg MV P1/2t: 63.6 msec Ao max P.4 mmHg MV V2 mean: 67.1 cm/sec Ao V2 mean: 70.3 cm/sec MV mean P.1 mmHg MV dec slope: 419.4 cm/sec2 Ao mean P.1 mmHg MV V2 VTI: 19.4 cm MVA(P1/2t): 3.5 cm2 Ao V2 VTI: 16.1 cm AV (velocity ratio): 0.95 AI max keo: 351.7 cm/sec LV V1 max: 91.1 cm/sec MR max keo: 414.7 cm/sec AI max P.5 mmHg LV V1 max P.3 mmHg MR max P.8 mmHg LV V1 mean P.0 mmHg AI dec slope: 296.8 cm/sec2 LV V1 mean: 66.6 cm/sec AI P1/2t: 347.1 msec LV V1 VTI: 15.3 cm PA V2 max: 77.0 cm/sec TR max keo: 384.2 cm/sec TR max P.1 mmHg ECHO/Echo Complete W/ Contrast Interpretation Summary The left ventricular ejection fraction is 20 %. Only basal part of LV moving. C onsider Takotsubo's cardiomyopathy. Stage 2 diastolic dysfunction. The left atrium is moderately enlarged. Mild (1+) mitral valve insufficiency. Mild to moderate (1-2+) tricuspid valve insufficiency. Severe pulmonary hypertension. Moderate (2+) aortic valve insufficiency. Ordering Physician: Briana Perez Referring Physician: Han Conn Performed By: James Carpneter RCS
[2022-10-26 11:39] LABS: Reflex Lactate? Y
[2022-10-26] MEDS: Enoxaparin 40 MG/0.4 ML Syringe SC (12:06)
[2022-10-26] MEDS: Levothyroxine 88 MCG Tablet PO (12:07)
[2022-10-26] MEDS: Furosemide 500 MG in Empty Viaflex 50 mL 1 EACH CONT INF (12:07)
[2022-10-26] MEDS: Lisinopril 5 MG Tablet PO (12:08)
[2022-10-26] MEDS: Carvedilol 3.125 MG TABLET PO ×2 (12:08→21:00)
[2022-10-26 12:35] LABS: Bedside Glucose 196 mg/dL (74-106)
[2022-10-26 12:55] LABS: Lactic Acid 1.7 mmol/L (0.4-1.9)
--- NOTE | 2022-10-26 13:03 | PCM.HP.STD ---
HPI - General General Date of Admission: 10/26/22 Date of Service: 10/26/22 Chief Complaint: Shortness of breath/hypoxia HPI Narrative MIRIAM DURHAM, is a 82 F who presented the emergency department at [facility] on 10/26/2022 with worsening shortness of breath. Evidently on of last week she had gone outside and was shoveling some snow but had to stop secondary to worsening shortness of breath and what she described as tightness across her chest from shoulder disorder. She states she went inside took a couple of aspirin and sat down and her symptoms went away. She is had no recurrent chest pain since that time but has had intermittent shortness of breath and woke up this morning from sleep acutely short of breath. Upon presentation here she was in respiratory distress and was placed emergently on BiPAP. Her daughter was at the bedside at the time of my evaluation and was not aware of anything prior to this morning when her mother called her and said that she could not breathe. She has no history of cardiac issues but does take medications for diabetes, blood pressure, and cholesterol. She does have a remote history of tobacco abuse but has quit. She states that her shortness of breath woke her out of sleep this morning. She is denied any associated fever or chills, nausea or vomiting, diarrhea or constipation, upper respiratory symptoms, or tingling/numbness/weakness. Vital signs at the time of presentation showed a temperature of 97.5, heart rate 99, blood pressure was 130/91, respiratory rate was 16 and her sat was 92% on 5 L nasal cannula. CBC was obtained and identified only a leukocytosis with a white count of 14.8 however no shift was present and I suspect this is reactive. Her initial chemistry panel showed normal electrolytes and renal function but did have an elevated glucose at 261. Her lactic acid was elevated at 4.0. Her initial troponin was 292. Her BNP was 1582.5. An ABG was obtained and she was found of a pH of 7.19 with a PCO2 of 58.7 and a PO2 of 129 on 5 L nasal cannula. At that time she was placed on BiPAP. Her chest x-ray was consistent with moderate congestive heart failure and her EKG showed sinus tachycardia with a left anterior fascicular block and inverted T waves in the lateral leads but no ST changes consistent with acute ischemia. The emergency department she was placed emergently on BiPAP and given a dose of IV Lasix. Request for admission was made at that time. [facility] Medical History Diabetes History of alcoholism History of tobacco abuse HTN (hypertension) Hyperlipidemia Hypothyroidism Urinary incontinence Home Medications atorvastatin 20 mg tablet 20 mg PO DAILY cholesterol 10/26/22 [History Last Taken 10/25/22] digestive enzymes 1 tab PO DAILY supplement 10/26/22 [History Last Taken 10/25/22] levothyroxine 88 mcg tablet 88 mcg PO DAILY thyroid 10/26/22 [History Last Taken 10/25/22] lisinopril 5 mg tablet 5 mg PO DAILY thyroid 10/26/22 [History Last Taken 10/25/22] metformin 500 mg tablet 500 mg PO DAILY diabetes 10/26/22 [History Last Taken 10/25/22] omeprazole 20 mg capsule,delayed release 20 mg PO DAILY heartburn 10/26/22 [History Last Taken 10/25/22] oxybutynin chloride 5 mg tablet,extended release 24 hr 5 mg PO DAILY Check with primary doctor 10/26/22 [History Last Taken 10/25/22] Allergy/AdvReac Type Severity Reaction Status Date / Time Penicillins [PCN] AdvReac Upset Verified 10/26/22 07:29 Stomach Family History (Updated 10/26/22 @ 13:[address] Briana Perez DO) Other Anxiety CVA (cerebral vascular accident) Depression Hypertension Suicide Surgical History (Updated 10/26/22 @ 13:[address] Briana Perez DO) History of knee replacement Social History (Updated 10/26/22 @ 13:[address] Briana ePrez DO) household members: none housing: house Smoking Status: Former smoker alcohol intake: former substance use type: does not use ROS Constitutional Constitutional: Denies anorexia, change in weight, chills, fatigue, fever(s), malaise, night sweats, weakness or other Eyes Eyes: Denies blurry vision, change in eye color, change in vision, discharge from eye(s), double vision, erythema, eye pain, loss of vision or other ENT HEENT: Denies abnormal hearing, dysphagia, ear pain, epistaxis, headache(s), hearing loss, nasal congestion, nasal discharge, post nasal drip, sinus pressure, sore throat or other Cardiovascular Cardiovascular: Reports dyspnea on exertion, edema, orthopnea and paroxysmal nocturnal dyspnea; Denies chest pain, claudication, lightheadedness, palpitations, rapid heart rate, syncope or other Respiratory/Chest Respiratory/Chest: Reports dyspnea, shortness of breath at rest and shortness of breath with exertion; Denies cough, excessive phlegm production, hemoptysis, productive cough, wheezing or other Gastrointestinal Gastrointestinal: Denies abdominal pain, coffee ground emesis, constipation, diarrhea, dyspepsia, hematemesis, hematochezia, loose stools, melena, nausea, vomiting or other Genitourinary Genitourinary: Reports urinary incontinence; Denies burning urination, difficulty urinating, dysuria, hematuria, nocturia, urinary frequency, urinary hesitancy, urinary urgency or other Musculoskeletal Musculoskeletal: Denies arthralgias, back pain, joint pain, joint stiffness, joint swelling, myalgias, neck pain or other Neurologic Neurologic: Denies abnormal gait, abnormal speech, confusion, disequilibrium, dizziness, focal weakness, headache(s), numbness, paresthesias, seizure-like activity, seizures, syncope, tingling, tremor(s) or other Psychiatric Psychiatric: Denies anxiety, depression, homicidal ideation, suicidal ideation or other Endocrine Endocrinology: Denies change in body appearance, cold intolerance, excessive sweating, heat intolerance, polydipsia, polyuria or other Hematologic/Lymphatic Hematologic/Lymphatic: Denies anemia, easy bleeding, easy bruising, lymphadenopathy or other Allergic/Immunologic Allergic/Immunologic: Denies rhinitis, hives, eczemia, asthma or other Vital Signs Vital Signs Vital Signs: 10/26/22 07:22 10/26/22 07:26 10/26/22 07:27 Temperature 99 F Temperature Source Temporal Pulse Rate 136 H Respiratory Rate 42 H Respiratory Effort Respiratory Depth Respiratory Pattern Blood Pressure 195/126 H Blood Pressure [BP] Blood Pressure Mean 149 Blood Pressure Mean [BP] Blood Pressure Source Blood Pressure Source [BP] Blood Pressure Position Blood Pressure Position [BP] Blood Pressure Location Blood Pressure Location [BP] Pulse Ox 87 88 89 Oxygen Delivery Method Room Air Nasal Cannula Nasal Cannula Oxygen Flow Rate (L/min) 2 4 Fraction of Inspired Oxygen (FIO2) 10/26/22 07:49 10/26/22 07:51 10/26/22 07:55 Temperature Temperature Source Pulse Rate 117 H Respiratory Rate 34 H Respiratory Effort Respiratory Depth Respiratory Pattern Tachypnea Blood Pressure Blood Pressure [BP] Blood Pressure Mean Blood Pressure Mean [BP] Blood Pressure Source Blood Pressure Source [BP] Blood Pressure Position Blood Pressure Position [BP] Blood Pressure Location Blood Pressure Location [BP] Pulse Ox 96 96 Oxygen Delivery Method Bi-pap Bi-pap Oxygen Flow Rate (L/min) Fraction of Inspired Oxygen (FIO2) 60 10/26/22 07:40 10/26/22 08:13 10/26/22 08:51 Temperature Temperature Source Pulse Rate 117 H 109 H 114 H Respiratory Rate 34 H 36 H 26 H Respiratory Effort Respiratory Depth Respiratory Pattern Tachypnea Blood Pressure 171/88 H 141/85 H Blood Pressure [BP] Blood Pressure Mean 115 103 Blood Pressure Mean [BP] Blood Pressure Source Blood Pressure Source [BP] Blood Pressure Position Blood Pressure Position [BP] Blood Pressure Location Blood Pressure Location [BP] Pulse Ox 93 93 Oxygen Delivery Method Bi-pap Bi-pap Oxygen Flow Rate (L/min) Fraction of Inspired Oxygen (FIO2) 10/26/22 09:31 10/26/22 10:29 10/26/22 10:29 Temperature 98 F 97.5 F L 97.3 F L Temperature Source Temporal Oral Oral Pulse Rate 106 H 99 98 Respiratory Rate 31 H 16 18 Respiratory Effort Respiratory Depth Respiratory Pattern Blood Pressure 127/76 H 130/91 H Blood Pressure [BP] 123/80 H Blood Pressure Mean 93 104 Blood Pressure Mean [BP] 94 Blood Pressure Source Monitor Blood Pressure Source [BP] Monitor Blood Pressure Position Semi-Fowlers Blood Pressure Position [BP] Semi-Fowlers Blood Pressure Location Left Arm Blood Pressure Location [BP] Left Arm Pulse Ox 93 92 92 Oxygen Delivery Method Bi-pap Nasal Cannula Nasal Cannula Oxygen Flow Rate (L/min) 5 5 Fraction of Inspired Oxygen (FIO2) 10/26/22 10:30 10/26/22 10:30 10/26/22 10:30 Temperature 97.3 F L 97.3 F L Temperature Source Temporal Temporal Pulse Rate 101 H 101 H Respiratory Rate 21 H 21 H Respiratory Effort Normal Non-Labored Respiratory Depth Normal Respiratory Pattern Tachypnea Blood Pressure 130/91 H Blood Pressure [BP] 130/91 H Blood Pressure Mean 104 Blood Pressure Mean [BP] 104 Blood Pressure Source Monitor Blood Pressure Source [BP] Monitor Blood Pressure Position Semi-Fowlers Blood Pressure Position [BP] Semi-Fowlers Blood Pressure Location Right Arm Blood Pressure Location [BP] Right Arm Pulse Ox 97 97 Oxygen Delivery Method Nasal Cannula Nasal Cannula Bi-pap Oxygen Flow Rate (L/min) 2 5 Fraction of Inspired Oxygen (FIO2) 60 10/26/22 10:45 10/26/22 11:00 10/26/22 11:15 Temperature Temperature Source Pulse Rate 100 98 103 H Respiratory Rate 28 H 13 23 H Respiratory Effort Respiratory Depth Respiratory Pattern Blood Pressure 123/80 H 143/98 H 137/97 H Blood Pressure [BP] Blood Pressure Mean 94 113 110 Blood Pressure Mean [BP] Blood Pressure Source Monitor Monitor Monitor Blood Pressure Source [BP] Blood Pressure Position Semi-Fowlers Semi-Fowlers Semi-Fowlers Blood Pressure Position [BP] Blood Pressure Location Right Arm Right Arm Right Arm Blood Pressure Location [BP] Pulse Ox 91 92 94 Oxygen Delivery Method Nasal Cannula Nasal Cannula Nasal Cannula Oxygen Flow Rate (L/min) 5 5 5 Fraction of Inspired Oxygen (FIO2) 10/26/22 10:30 10/26/22 11:30 10/26/22 11:35 Temperature Temperature Source Pulse Rate 98 104 H Respiratory Rate 23 H Respiratory Effort Respiratory Depth Respiratory Pattern Blood Pressure 121/56 H Blood Pressure [BP] Blood Pressure Mean 77 Blood Pressure Mean [BP] Blood Pressure Source Monitor Blood Pressure Source [BP] Blood Pressure Position Semi-Fowlers Blood Pressure Position [BP] Blood Pressure Location Right Arm Blood Pressure Location [BP] Pulse Ox 84 90 Oxygen Delivery Method Nasal Cannula Nasal Cannula Oxygen Flow Rate (L/min) 5 7 Fraction of Inspired Oxygen (FIO2) 10/26/22 12:00 10/26/22 12:00 10/26/22 12:30 Temperature 98.0 F 98.0 F Temperature Source Temporal Temporal Pulse Rate 97 97 106 H Respiratory Rate 24 H 24 H 26 H Respiratory Effort Respiratory Depth Respiratory Pattern Blood Pressure 127/77 H 127/77 H 128/89 H Blood Pressure [BP] Blood Pressure Mean 93 93 102 Blood Pressure Mean [BP] Blood Pressure Source Monitor Monitor Monitor Blood Pressure Source [BP] Blood Pressure Position Semi-Fowlers Semi-Fowlers Semi-Fowlers Blood Pressure Position [BP] Blood Pressure Location Right Arm Right Arm Right Arm Blood Pressure Location [BP] Pulse Ox 91 91 90 Oxygen Delivery Method Nasal Cannula Nasal Cannula Nasal Cannula Oxygen Flow Rate (L/min) 7 7 7 Fraction of Inspired Oxygen (FIO2) Weight Weight: 77.111 kg Body Mass Index (BMI) 28.3 Physical Exam Const alert, oriented x3 and well nourished Constitutional Narrative: Elderly white female sitting up in bed currently on 6 L nasal cannula with oxygen saturation 91%, appears comfortable, daughter at bedside General Appearance: cooperative HEENT normocephalic, head/scalp atraumatic and moist oral mucous membranes HEENT Narrative: Dentition is fair, Mallampati is 2, no thrush Eyes PERRL, EOMs intact bilaterally and conjunctivae normal Eyes Narrative: No scleral icterus Neck no lymphadenopathy, supple and no carotid bruits Neck Narrative: Positive JVD, trachea midline, no thyroid enlargement Resp no retractions and no use of accessory muscles Resp Narrative: Crackles bilateral bases, diminished diffusely, slight tachypnea, few scattered wheeze Auscultation: crackles and wheezes; Negative for rhonchi Cardio regular rate, regular rhythm, S1 normal heart sound, S2 normal heart sound, no murmurs, no rub, no clicks and no JVD Cardio Narrative: Positive S3 GI normal to inspection, nondistended, normoactive bowel sounds, soft to palpation and non-tender Extremity Extremity Narrative: Trace bilateral lower extremity pitting edema, 2+ pedal pulses, no cyanosis or clubbing Skin no rashes or lesions noted, no wounds, skin turgor normal, no jaundice, no petechiae and no mottling Neuro oriented x3, CN's II-XII intact bilaterally, moves all extremities and no focal motor deficits Speech: speech normal Psych affect normal Psych Narrative: Very pleasant and appropriately interactive Results Lab / Micro Data Result Diagrams: 10/26/22 07:32 10/26/22 07:32 Labs: Laboratory Results - last 24 hr 10/26/22 07:32: WBC 14.8 H, RBC 4.76, Hgb 14.4, Hct 44.9, MCV 94.3, MCH 30.3, MCHC 32.1, RDW Std Deviation 47.3 H, RDW Coeff of Jameson 13.5, Plt Count 270, MPV 10.7, Immature Gran % (Auto) 0.400, Neut % (Auto) 69.7, Lymph % (Auto) 21.8, [place] % (Auto) 6.7, Eos % (Auto) 0.7, Baso % (Auto) 0.7, Absolute Neuts (auto) 10.3 H, Absolute Lymphs (auto) 3.22, Nucleated RBC % 0 10/26/22 07:32: Sodium 136, Potassium 4.5, Chloride 103, Carbon Dioxide 24.0, Anion Gap 9, BUN 8, Creatinine 0.88, Estim Creat Clear Calc 42.82, Est GFR (MDRD) Af Amer 79, Est GFR (MDRD) Non-Af 65, BUN/Creatinine Ratio 9.1 L, Glucose 261 H, Calcium 9.1, Troponin I High Sens 292 H* 10/26/22 07:32: Lactic Acid 4.0 H* 10/26/22 07:32: B-Natriuretic Peptide 1582.5 H 10/26/22 11:55: Lactic Acid 1.7 10/26/22 12:10: POC Glucose 196 H Micro: Microbiology 10/26/22 07:40 Nasal Secretion SARS-CoV-2 & FLU Antigen (Rapid) - Final ABG Data ABG results: ABG 10/26/22 10/26/22 07:58 10:26 Specimen Type ART ART Sample Site R Radial R Radial pH 7.19 L* 7.45 Bicarbonate Actual 22.4 24.2 Total CO2 24 25 Base Excess -6 L 0 O2 Saturation 98 98 O2 % 60 ABG pCO2 58.7 H 35.2 ABG pO2 129 H 97 Liter Flow 5.0 Vent Mode BiLevel POC PEEP 6 Crit Call To/Read Back Yes Rhythm Strip Rhythm Strip: Sinus Tach Rate: 130 Ectopy: PVC(s) Radiology Impression Chest X-Ray 10/26/22 07:34 IMPRESSION: Moderate congestive heart failure. Electronically Signed: Benny Lucia MD at 8:56 EST , Assessment & Plan Assessment/Plan (1) Acute respiratory failure with hypoxia and hypercapnia: (2) Acute CHF: (3) Elevated troponin: (4) Leukocytosis: (5) Respiratory acidosis: (6) Lactic acidosis: (7) GERD (gastroesophageal reflux disease): PLAN: Plan Acute hypoxic and hypercapnic respiratory failure secondary to acute heart failure -ABG on presentation showed pH of 7.19/PCO2 of 58.7/PO2 of 129 on 5 L nasal cannula -Placed on BiPAP with follow-up ABG 2 hours later showing improved hypercapnia to a pH of 7.45/PCO2 of 35.2/PO2 of 97% with 60% FiO2 -At the time of my evaluation she was on 6 L nasal cannula satting 91% and mentating well -Continue BiPAP therapy at night and as needed throughout the day -Aggressive diuresis with Lasix drip -Kaylee for accurate I's and O's -Daily weights -Fluid restriction to 1500 cc -Low-sodium diet -Check echocardiogram--> patient without history of heart failure and current etiology/type on known -We will consider cardiology involvement depending on echocardiogram results Lactic acidosis -Suspect related to acute hypoxia -Resolved on repeat Leukocytosis -Suspect reactive -Patient with no signs or symptoms of infection Elevated troponin -Cycle cardiac enzymes -May be related to stress response with acute heart failure however unclear at this time -If cardiac enzymes trend up we will start heparin drip and consult cardiology if not will obtain echocardiogram and review prior to consultation -Patient may need cardiac catheterization depending on the results of her echocardiogram -Check hemoglobin A1c -Check lipids Hypertension -Continue home lisinopril -Blood pressures are elevated therefore we will add some low-dose Coreg GERD -Continue home PPI Hypothyroidism -Continue levothyroxine -Check TSH Hyperlipidemia -Continue home atorvastatin -Check lipids DM-2 -Check hemoglobin A1c -Hold home metformin -Sliding scale insulin -Accu-Cheks as ordered Urinary incontinence -Continue home oxybutynin History of tobacco abuse -Remote History of alcohol abuse -Remote DVT prophylaxis -Lovenox -SCDs CODE STATUS -DNR CCA with no intubation as verified in the emergency department with her daughter at the bedside at the time of admission Charges/Coding Visit Charges Inpatient E&M: 26313 Init Hosp L3
[2022-10-26 13:24] LABS: Troponin-I HS 350 pg/mL (3.0-54.0)
[2022-10-26 14:45] LABS: Troponin-I HS 426 pg/mL (3.0-54.0)
[2022-10-26] MEDS: Heparin Injection (Vial) 5,000 UNIT/ML VIAL 5000 UNIT IV (14:48)
[2022-10-26] MEDS: HEPARIN/D5w 25,000 UNITS 25,000 UNITS/250 ML IV.SOLN. 11 UNITS CONT INF (15:05)
[2022-10-26 15:06] LABS: International Normalized Ratio 1.2; Prothrombin Time (Protime)PT. 14.6 SECONDS (11.7-14.9)
[2022-10-26 15:07] LABS: Partial Thromboplast Time 32.1 Seconds (24.1-36.2)
--- NOTE | 2022-10-26 15:31 | CHAPLAIN ---
Type of Pastoral Visit _x__ Initial Visit ___ Follow-up Visit ___ On-call Visit ___ General Patient Visit ___ Spiritual Assessment ___ Family Conference ___ Bereavement ___ Rapid Response ___ Code Blue ___ Other (describe below) Pastoral Care Referral From _x__ Patient ___ Family ___ Nurse ___ Physician ___ Sr Community Manager ___ Chair Spring Assembler ___ Other (describe below) Sacrament/Intervention _x__ Active listening ___ Anointing ___ Latter Day ___ Bereavement ___ Communion ___ Charley exploration ___ ___ Life review _x__ Prayer ___ Reconciliation ___ Sacrament of Sick ___ Supportive presence ___ Wedding ___ Other (describe below) Pastoral Comments patient states that she is feeling better now and is just getting some more bloodwork and testing; pt states that she would just need a prayer for support; daughter just left the room
[2022-10-26] MEDS: Insulin Lispro 100 UNIT/ML INSULN.PEN SC ×2 (19:50→22:02)
[2022-10-26 20:06] LABS: Bedside Glucose 247 mg/dL (74-106)
[2022-10-26] MEDS: Atorvastatin Calcium 20 MG Tablet PO (21:00)
[2022-10-26 21:44] LABS: Partial Thromboplast Time 73.3 Seconds (24.1-36.2)
[2022-10-26 21:50] LABS: Troponin-I HS 461 pg/mL (3.0-54.0)
[2022-10-26] MEDS: 0.9% Saline Lock 10 ML Syringe IV (22:02)
[2022-10-26 22:26] LABS: Bedside Glucose 198 mg/dL (74-106)
[2022-10-27] VITALS (19 sets, daily range): BP systolic 84–124; BP diastolic 55–69; PULSE 66–85; RESP 12–22; TEMP 36.1–36.7; O2SAT 90–99
[2022-10-27] MEDS: 0.9% Saline Lock 10 ML Syringe IV (03:28)
[2022-10-27 03:31] LABS: Absolute Lymphocyte Count 2.96 X10^3/uL (0.83-4.51); Absolute Neutrophil Count 6.7 X10^3/uL (2.0-7.7); Basophil# 0.09 X10^3/uL; Basophil% 0.8 % (0-1); Eosinophil# 0.12 X10^3/uL; Eosinophils% 1.1 % (0-5); Hematocrit 38.9 % (37-47); Hemoglobin 12.6 g/dL (12.0-15.0); Lymphocyte # 2.96 X10^3/ul (0.83-4.51); Lymphocyte % 27.6 % (19-41); Mean Corp Hgb Conc 32.4 g/dL (32-36); Mean Corpuscular Hgb 30.1 pg (27.0-32.0); Mean Corpuscular Volume 92.8 fL (81-99); Mean Platelet Vol. 10.9 fl (6.2-12.0); Monocyte# 0.77 X10^3/uL; Monocyte% 7.2 % (0-10); NRBC Flagged by Analyzer 0 % (0-5); Neutrophil # 6.74 X10^3/uL (2.7-7.7); Neutrophil % 62.9 % (47-70); Platelet Count 227 K/mm3 (150-450); RBC Distribution Width CV 13.6 % (11.6-14.6); RBC Distribution Width SD 46.3 fl (35.1-43.9); Red Blood Count 4.19 M/mm3 (4.2-5.4); White Blood Count 10.7 K/mm3 (4.4-11.0)
[2022-10-27 03:46] LABS: Partial Thromboplast Time 110.9 Seconds (24.1-36.2)
[2022-10-27 04:10] LABS: ALB/GLOB Ratio 0.9 RATIO (0.9-2.4); AST(SGOT) 29 U/L (15-37); Alanine Aminotransfer ALT/SGPT 23 U/L (13-56); Albumin, Serum 2.9 g/dL (3.2-5.0); Alkaline Phosphatase 55 U/L (45-117); Anion Gap 7 (5-15); BUN 12 mg/dL (7-18); BUN/Creat Ratio 13.9 RATIO (10-20); Calcium,Total 8.3 mg/dL (8.5-10.1); Chloride 100 mmol/L (98-107); Cholesterol 143 mg/dL (200); Creatinine, Serum 0.86 mg/dL (0.55-1.02); EST Glomerular Filtration Rate 66 mL/min (>60); Est Glom Filt Rate - Afr Amer 80 mL/min (>60); Estimated Creatinine Clearance 43.82 ml/min; Globulin 3.4 g/dL (2.2-4.2); Glucose 170 mg/dL (74-106); High Density Lipoprotein 71 mg/dL; Magnesium 1.6 mg/dL (1.6-2.6); Phosphorus 3.8 mg/dL (2.5-4.9); Potassium 3.6 mmol/L (3.5-5.1); Protein, Total 6.3 g/dL (6.4-8.2); Sodium Level 138 mmol/L (136-145); Triglycerides 69 mg/dL; Troponin-I HS 477 pg/mL (3.0-54.0); Very Low Density Lipoprotein 14 mg/dL (5-40)
[2022-10-27] MEDS: Levothyroxine 88 MCG Tablet PO (04:58)
[2022-10-27] MEDS: Insulin Lispro 100 UNIT/ML INSULN.PEN SC ×3 (06:25→20:58)
[2022-10-27 06:46] LABS: Bedside Glucose 164 mg/dL (74-106)
[2022-10-27 08:17] LABS: Hemoglobin A1c 7.1 % (3.8-5.6)
[2022-10-27] MEDS: Pantoprazole Sodium 20 MG Tablet PO (10:05)
[2022-10-27] MEDS: Aspirin E.C. 81 MG Tablet PO (10:05)
[2022-10-27] MEDS: Lisinopril 5 MG Tablet PO (10:05)
[2022-10-27] MEDS: Tolterodine Tartrate 2 MG CAP.SA PO (10:05)
[2022-10-27] MEDS: Carvedilol 3.125 MG TABLET PO (10:05)
--- NOTE | 2022-10-27 10:43 | CASEMGMT ---
HAMLET SHORT Discharge Planning Assessment: Face to Face with patient for initial transition planning/care coordination assessment.?Pt alert but [place] [place] [employer] and asked that questions be asked to pt's daughter Jeannette at bedside. HAMLET SHORT introduced self and role at [facility], pt and pt's daughter voiced understanding.? Care providers, pharmacy,?and demographics verified. ? PCP: Dr. Conn Specialists: Dr. Zee, industrial relations specialist Preferred Pharmacy: [facility] Insurance: [facility] A/B, [facility] [place] Prescription Benefit:?No, pt has been self paying for medications Living Will/HPOA: Yes, HPOA Nicki Sinclair, documents at bedside, copy to be placed on chart for scanning. LNOK: children Jeannette Caceres, and son Mark Living Arrangements: Pt lives alone in a 2 story home with 2 steps to enter. Bathroom on 1st floor, bedroom on 2nd floor but this can be moved to the 1st floor. Pt has been independent with ADLs including bathing, dressing, meals, and ham boner. Transportation: pt drives and family can assist with driving if needed DME: cane, walker, glucometer, shower chair, BSC, hand held shower. SNF/HHC: Denies any previous need Plan: Pt plans to return home at discharge with the support of her family. Will continue to monitor and assist with needs as identified. Home health care may be a consideration. Yanira Garnica RN CM
--- NOTE | 2022-10-27 11:11 | CON.PCM.CA_ITS ---
Assessment & Plan Assessment/Plan (1) NSTEMI (non-ST elevated myocardial infarction): PLAN: Continue aspirin. Add Plavix. Patient asymptomatic. May stop heparin. Discussed with patient in detail. Coronary angiography and possible re vascularization offered. Risks benefits explained. She understands these and wishes to proceed. We will schedule for tomorrow. (2) Acute CHF: PLAN: Class IV CHF on presentation. Feels much better after diuresis. Discontinue Lasix infusion. Start on p.o. Tolerating beta-sergio. Continue. Continue KIKA inhibitor. For coronary angiography as noted above. (3) Cardiomyopathy: PLAN: Ischemic versus nonischemic. See #1 and 2 above. (4) Diabetes: PLAN: As per internal medicine. (5) Dyslipidemia: PLAN: On atorvastatin. HPI Consult Data Date of Consult: 10/28/22 HPI Narrative HPI Narrative: Patient with past medical history significant for diabetes mellitus, dyslipidemia and hypertension. She presented to the emergency room with complaints of increasing shortness of breath. Per patient, it has been happening over the last few weeks. This last , she went out to shovel snow from her driveway. She had chest pain across her anterior chest. This was relieved on its own. In the emergency room, the patient was noted to be in significantly short of breath. She was placed on treatment for congestive heart failure and feels sig nificantly better since. Presently asymptomatic. During the course of the patient's investigations, her troponins were noted to be elevated. Subsequently we have been asked for evaluation and management. [facility] Medical History (Updated 10/27/22 @ 14:[address] Briana Perez DO) Diabetes History of alcoholism History of tobacco abuse HTN (hypertension) Hyperlipidemia Hypothyroidism Urinary incontinence Home Medications atorvastatin 20 mg tablet 20 mg PO DAILY cholesterol 10/26/22 [History Last Taken 10/25/22] digestive enzymes 1 tab PO DAILY supplement 10/26/22 [History Last Taken 2] levothyroxine 88 mcg tablet 88 mcg PO DAILY thyroid 10/26/22 [History Last Taken 10/25/22] lisinopril 5 mg tablet 5 mg PO DAILY thyroid 10/26/22 [History Last Taken 10/25/22] metformin 500 mg tablet 500 mg PO DAILY diabetes 10/26/22 [History Last Taken 10/25/22] omeprazole 20 mg capsule,delayed release 20 mg PO DAILY heartburn 10/26/22 [History Last Taken 10/25/22] oxybutynin chloride 5 mg tablet,extended release 24 hr 5 mg PO DAILY Check with primary doctor 10/26/22 [History Last Taken 10/25/22] Allergy/AdvReac Type Severity Reaction Status Date / Time Penicillins [PCN] AdvReac Upset Verified 10/26/22 07:29 Stomach Family History (Updated 10/26/22 @ 13:[address] Briana Perez DO) Other Anxiety CVA (cerebral vascular accident) Depression Hypertension Suicide Surgical History (Updated 10/26/22 @ 13:[address] Briana Perez DO) History of knee replacement Social History (Updated 10/26/22 @ 13:[address] Briana Perez DO) household members: none housing: house Smoking Status: Former smoker alcohol intake: former substance use type: does not use Physical Exam Narrative Comfortable. No apparent distress. Sitting up in a chair. Heart sounds 1 and 2 are normal. Chest examination shows decreased breath sounds at bilateral bases. Abdomen soft. Alert oriented x3. Trace ankle edema. Risk Stratification Risk Stratification Applicable: No Objective Data Vital Signs: Vital Signs Temp Pulse Resp BP Pulse Ox O2 Del Method O2 Flow Rate 97.2 F L 85 18 109/67 94 Nasal Cannula 3 10/27/22 10:04 10/27/22 10:04 10/27/22 10:04 10/27/22 10:04 10/27/22 10:04 10/27/22 10:04 10/27/22 10:04 FiO2 28 10/27/22 06:58 Oxygen Flow Rate (L/min) 3 Oxygen Delivery Method Nasal Cannula Weight: 178 lb 5.663 oz Body Mass Index (BMI) 28.3 Intake & Output: Intake and Output for Last 24 Hours 10/25/22 10/26/22 10/27/22 23:59 23:59 23:59 Intake Total 520.53 / 520.53 70.58 / 70.58 Output Total 1600 / 1800 700 / 700 Balance -1079.47 / -1279.47 -629.42 / -629.42 Lab / Micro Data Result Diagrams: 10/28/22 03:45 10/28/22 03:45 Labs: Laboratory Results - last 24 hr 10/26/22 11:55: Troponin I High Sens 350 H* 10/26/22 11:55: Lactic Acid 1.7 10/26/22 12:10: POC Glucose 196 H 10/26/22 14:15: Troponin I High Sens 426 H* 10/26/22 14:30: PT 14.6, INR 1.2, APTT 32.1 10/26/22 19:45: POC Glucose 247 H 10/26/22 21:05: APTT 73.3 H 10/26/22 21:15: Troponin I High Sens 461 H* 10/26/22 22:01: POC Glucose 198 H 10/27/22 03:20: WBC 10.7, RBC 4.19 L, Hgb 12.6, Hct 38.9, MCV 92.8, MCH 30.1, MCHC 32.4, RDW Std Deviation 46.3 H, RDW Coeff of [place] 13.6, Plt Count 227, MPV 10.9, Immature Gran % (Auto) 0.400, Neut % (Auto) 62.9, Lymph % (Auto) 27.6, [place] % (Auto) 7.2, Eos % (Auto) 1.1, Baso % (Auto) 0.8, Absolute Neuts (auto) 6.7, Absolute Lymphs (auto) 2.96, Nucleated RBC % 0 10/27/22 03:20: Sodium 138, Potassium 3.6, Chloride 100, Carbon Dioxide 31.0, Anion Gap 7, BUN 12, Creatinine 0.86, Estim Creat Clear Calc 43.82, Est GFR (MDRD) Af Amer 80, Est GFR (MDRD) Non-Af 66, BUN/Creatinine Ratio 13.9, Glucose 170 H, Calcium 8.3 L, Phosphorus 3.8, Magnesium 1.6, Total Bilirubin 2.10 H, AST 29, ALT 23, Alkaline Phosphatase 55, Troponin I High Sens 477 H*, Total Protein 6.3 L, Albumin 2.9 L, Globulin 3.4, Albumin/Globulin Ratio 0.9, Triglycerides 69, Cholesterol 143, LDL Cholesterol 58, VLDL Cholesterol 14, HDL Cholesterol 71, TSH 2.70 10/27/22 03:20: Hemoglobin A1c 7.1 H 10/27/22 03:20: APTT 110.9 H* 10/27/22 06:24: POC Glucose 164 H 10/27/22 10:00: APTT 46.0 H Micro: Microbiology 10/26/22 07:40 Nasal Secretion SARS-CoV-2 & FLU Antigen (Rapid) - Final Rhythm Strip Rhythm Strip: Sinus Rhythm Ectopy: PVC(s) Cardiology Labs/Tests 10/26/22 11:55: Lactic Acid 1.7 10/26/22 14:30: PT 14.6, INR 1.2, APTT 32.1 10/26/22 21:05: APTT 73.3 H 10/27/22 03:20: WBC 10.7, RBC 4.19 L, Hgb 12.6, Hct 38.9, MCV 92.8, MCH 30.1, MCHC 32.4, Plt Count 227, MPV 10.9, Immature Gran % (Auto) 0.400, Neut % (Auto) 62.9, Lymph % (Auto) 27.6, [place] % (Auto) 7.2, Eos % (Auto) 1.1, Baso % (Auto) 0.8, Absolute Neuts (auto) 6.7, Nucleated RBC % 0 10/27/22 03:20: Sodium 138, Potassium 3.6, Chloride 100, Carbon Dioxide 31.0, Anion Gap 7, BUN 12, Creatinine 0.86, Est GFR (MDRD) Af Amer 80, Est GFR (MDRD) Non-Af 66, BUN/Creatinine Ratio 13.9, Glucose 170 H, Calcium 8.3 L, Phosphorus 3.8, Magnesium 1.6, Total Bilirubin 2.10 H, Triglycerides 69, Cholesterol 143, LDL Cholesterol 58, VLDL Cholesterol 14, HDL Cholesterol 71 10/27/22 03:20: Hemoglobin A1c 7.1 H 10/27/22 03:20: APTT 110.9 H* 10/27/22 10:00: APTT 46.0 H Rhythm: EKG: Sinus tachycardia with PACs. Nonspecific T wave changes. ECHO: Severe LV systolic dysfunction. Estimated ejection fraction 20%. LV function suggestive of Takotsubo's cardiomyopathy Stress Test: Cardiac Cath: PCI: CT Surgery: Holter monitor: EPS: PPM: CXR: Chest CT Scan: Radiography Diagnostic Testing: Radiology Impression Echocardiogram 10/26/22 11:04 Interpretation Summary The left ventricular ejection fraction is 20 %. Only basal part of LV moving. Consider Takotsubo's cardiomyopathy. Stage 2 diastolic dysfunction. The left atrium is moderately enlarged. Mild (1+) mitral valve insufficiency. Mild to moderate (1-2+) tricuspid valve insufficiency. Severe pulmonary hypertension. Moderate (2+) aortic valve insufficiency. Ordering Physician: Briana Perez Referring Physician: Han Conn Performed By: James Carpenter RCS
[2022-10-27 12:06] LABS: Bedside Glucose 151 mg/dL (74-106)
--- NOTE | 2022-10-27 13:32 | CASEMGMT ---
[facility] Tertiary Transfer list: Pt with traditional MCR and can be transferred to any facility. Yanira Garnica RN CM
--- NOTE | 2022-10-27 14:17 | PCM.PN.HOSP ---
Subjective Subjective Patient reports that she is much better overall. She states she is far less short of breath. She also indicates on reflection that she is probably been having symptoms for several weeks prior to presentation. We did discuss her depressed ejection fraction and probable need for cardiac catheterization however at the time of my evaluation we are still waiting for cardiology input. Objective Data Objective Data Vital Signs: Vital Signs Temp Pulse Resp BP Pulse Ox O2 Del Method O2 Flow Rate 97.2 F L 85 18 109/67 94 Nasal Cannula 3 10/27/22 10:04 10/27/22 10:04 10/27/22 10:04 10/27/22 10:04 10/27/22 10:04 10/27/22 10:04 10/27/22 10:04 FiO2 28 10/27/22 06:58 Oxygen Flow Rate (L/min) 3 Oxygen Delivery Method Nasal Cannula Weight: 80.9 kg Body Mass Index (BMI) 28.3 Intake & Output: Intake and Output for Last 24 Hours 10/25/22 10/26/22 10/27/22 23:59 23:59 23:59 Intake Total 520.53 / 520.53 141.71 / 141.71 Output Total 1600 / 1800 1400 / 1400 Balance -1079.47 / -1279.47 -1258.29 / -1258.29 Lab / Micro Data Result Diagrams: 10/27/22 03:20 10/27/22 03:20 Labs: Laboratory Results - last 24 hr 10/26/22 14:15: Troponin I High Sens 426 H* 10/26/22 14:30: PT 14.6, INR 1.2, APTT 32.1 10/26/22 19:45: POC Glucose 247 H 10/26/22 21:05: APTT 73.3 H 10/26/22 21:15: Troponin I High Sens 461 H* 10/26/22 22:01: POC Glucose 198 H 10/27/22 03:20: WBC 10.7, RBC 4.19 L, Hgb 12.6, Hct 38.9, MCV 92.8, MCH 30.1, MCHC 32.4, RDW Std Deviation 46.3 H, RDW Coeff of [place] 13.6, Plt Count 227, MPV 10.9, Immature Gran % (Auto) 0.400, Neut % (Auto) 62.9, Lymph % (Auto) 27.6, [place] % (Auto) 7.2, Eos % (Auto) 1.1, Baso % (Auto) 0.8, Absolute Neuts (auto) 6.7, Absolute Lymphs (auto) 2.96, Nucleated RBC % 0 10/27/22 03:20: Sodium 138, Potassium 3.6, Chloride 100, Carbon Dioxide 31.0, Anion Gap 7, BUN 12, Creatinine 0.86, Estim Creat Clear Calc 43.82, Est GFR (MDRD) Af Amer 80, Est GFR (MDRD) Non-Af 66, BUN/Creatinine Ratio 13.9, Glucose 170 H, Calcium 8.3 L, Phosphorus 3.8, Magnesium 1.6, Total Bilirubin 2.10 H, AST 29, ALT 23, Alkaline Phosphatase 55, Troponin I High Sens 477 H*, Total Protein 6.3 L, Albumin 2.9 L, Globulin 3.4, Albumin/Globulin Ratio 0.9, Triglycerides 69, Cholesterol 143, LDL Cholesterol 58, VLDL Cholesterol 14, HDL Cholesterol 71, TSH 2.70 10/27/22 03:20: Hemoglobin A1c 7.1 H 10/27/22 03:20: APTT 110.9 H* 10/27/22 06:24: POC Glucose 164 H 10/27/22 10:00: APTT 46.0 H 10/27/22 11:46: POC Glucose 151 H Micro: Microbiology 10/26/22 07:40 Nasal Secretion SARS-CoV-2 & FLU Antigen (Rapid) - Final Radiography Diagnostic Testing: Radiology Impression Echocardiogram 10/26/22 11:04 Interpretation Summary The left ventricular ejection fraction is 20 %. Only basal part of LV moving. Consider Takotsubo's cardiomyopathy. Stage 2 diastolic dysfunction. The left atrium is moderately enlarged. Mild (1+) mitral valve insufficiency. Mild to moderate (1-2+) tricuspid valve insufficiency. Severe pulmonary hypertension. Moderate (2+) aortic valve insufficiency. Ordering Physician: Briana Perez Referring Physician: Han Conn Performed By: James Carpenter RCS Rhythm Strip Rhythm Strip: Sinus Rhythm Rate: 130 Ectopy: PVC(s) Physical Exam Const alert, oriented x3, no apparent distress and well nourished Constitutional Narrative: Elderly white female sitting up in a chair at the bedside currently on 3 L nasal cannula with oxygen saturation 94%, appears comfortable, daughter at bedside General Appearance: cooperative HEENT normocephalic, head/scalp atraumatic and moist oral mucous membranes HEENT Narrative: Mallampati 3, no thrush Resp normal respiratory effort, no retractions, no use of accessory muscles and clear to auscultation bilaterally Resp Narrative: Diminished but clear, tachypnea and wheeze resolved, no further crackles Auscultation: Negative for crackles, rhonchi or wheezes Cardio regular rate, regular rhythm, S1 normal heart sound, S2 normal heart sound, no murmurs, no rub, no gallops, no clicks and no JVD GI normal to inspection, nondistended, normoactive bowel sounds, soft to palpation and non-tender Extremity Extremity Narrative: No significant edema, bilateral lower extremity Yovany wraps in place, 2+ pedal pulses, no cyanosis or clubbing Neuro oriented x3, moves all extremities and no focal motor deficits Speech: speech normal Psych affect normal Psych Narrative: Very pleasant and appropriately interactive Assessment & Plan Assessment/Plan (1) Acute respiratory failure with hypoxia and hypercapnia: (2) Acute CHF: (3) Elevated troponin: (4) Leukocytosis: (5) Respiratory acidosis: (6) Lactic acidosis: (7) GERD (gastroesophageal reflux disease): (8) Cardiomyopathy: (9) Dyslipidemia: (10) NSTEMI (non-ST elevated myocardial infarction): PLAN: Plan Acute hypoxic and hypercapnic respiratory failure secondary to decompensated HFrEF -ABG on presentation showed pH of 7.19/PCO2 of 58.7/PO2 of 129 on 5 L nasal cannula -Required BiPAP on admission -Now weaned to 3 L nasal cannula -Lasix drip discontinued and placed on IV Lasix twice daily -Continue Page for accurate I's and O's -Continue Daily weights -Fluid restriction to 1500 cc -Continue low-sodium diet -Echocardiogram demonstrated an EF of 20% with only the basal portion of the LV moving, stage II diastolic dysfunction, moderate left atrial enlargement, severe pulmonary artery hypertension and moderate aortic valve insufficiency Decompensated HFrEF -Discontinue Lasix drip -IV push Lasix initiated -Continue home lisinopril -Coreg initiated -Low-dose Aldactone initiated by cardiology at 12.5 mg daily -Cardiology consult in place with cardiac catheterization recommended for tomorrow morning to rule out ischemic cardiomyopathy -Echo was suggestive of Takotsubo cardiomyopathy and EF was 20% NSTEMI -Continue aspirin -Continue home atorvastatin -Continue carvedilol -Plavix initiated by cardiology -Continue home YOVANY inhibitor -Cardiac catheterization tomorrow -N.p.o. after midnight Lactic acidosis -Resolved Leukocytosis -Resolved Hypertension -Continue home lisinopril -Blood pressures are elevated therefore we will add some low-dose Coreg GERD -Continue home PPI Hypothyroidism -Continue levothyroxine -Check TSH Hyperlipidemia -Continue home atorvastatin -Check lipids DM-2 -hemoglobin A1c is 7.1 -Consider discontinuing metformin at discharge and starting Jardiance with HFrEF -Sliding scale insulin -Accu-Cheks as ordered Urinary incontinence -Continue home oxybutynin History of tobacco abuse -Remote History of alcohol abuse -Remote DVT prophylaxis -Subcu heparin -SCDs CODE STATUS -DNR CCA with no intubation as verified in the emergency department with her daughter at the bedside at the time of admission Charges/Coding Visit Charges Inpatient E&M: 02889 Subs Hosp L2
[2022-10-27] MEDS: Furosemide 40 MG Tablet PO (16:48)
[2022-10-27] MEDS: Clopidogrel Bisulfate 75 MG Tablet PO (16:48)
[2022-10-27] MEDS: Spironolactone 25 MG Tablet 12.5 MG PO (16:48)
[2022-10-27 17:10] LABS: Bedside Glucose 178 mg/dL (74-106)
[2022-10-27] MEDS: Heparin Injection (Vial) 5,000 UNIT/ML VIAL 5000 UNIT SC (20:54)
[2022-10-27] MEDS: Atorvastatin Calcium 20 MG Tablet PO (20:54)
[2022-10-27 21:25] LABS: Bedside Glucose 151 mg/dL (74-106)
[2022-10-28] VITALS (16 sets, daily range): BP systolic 85–125; BP diastolic 49–86; PULSE 67–82; RESP 12–22; TEMP 36.3–36.7; O2SAT 91–94
[2022-10-28 04:09] LABS: Absolute Lymphocyte Count 2.66 X10^3/uL (0.83-4.51); Absolute Neutrophil Count 4.8 X10^3/uL (2.0-7.7); Basophil# 0.08 X10^3/uL; Eosinophil# 0.17 X10^3/uL; Hematocrit 38.3 % (37-47); Hemoglobin 12.5 g/dL (12.0-15.0); Lymphocyte # 2.66 X10^3/ul (0.83-4.51); Lymphocyte % 31.7 % (19-41); Mean Corp Hgb Conc 32.6 g/dL (32-36); Mean Corpuscular Hgb 30.7 pg (27.0-32.0); Mean Corpuscular Volume 94.1 fL (81-99); Mean Platelet Vol. 10.6 fl (6.2-12.0); Monocyte# 0.64 X10^3/uL; Monocyte% 7.6 % (0-10); NRBC Flagged by Analyzer 0 % (0-5); Neutrophil # 4.82 X10^3/uL (2.7-7.7); Neutrophil % 57.5 % (47-70); Platelet Count 203 K/mm3 (150-450); RBC Distribution Width CV 13.5 % (11.6-14.6); RBC Distribution Width SD 46.5 fl (35.1-43.9); Red Blood Count 4.07 M/mm3 (4.2-5.4); White Blood Count 8.4 K/mm3 (4.4-11.0)
[2022-10-28 04:11] LABS: Anion Gap 5 (5-15); BUN 23 mg/dL (7-18); BUN/Creat Ratio 26.9 RATIO (10-20); Calcium,Total 8.2 mg/dL (8.5-10.1); Chloride 101 mmol/L (98-107); Creatinine, Serum 0.86 mg/dL (0.55-1.02); EST Glomerular Filtration Rate 67 mL/min (>60); Est Glom Filt Rate - Afr Amer 81 mL/min (>60); Estimated Creatinine Clearance 43.82 ml/min; Glucose 147 mg/dL (74-106); Sodium Level 137 mmol/L (136-145)
[2022-10-28] MEDS: Insulin Lispro 100 UNIT/ML INSULN.PEN SC ×3 (08:11→21:14)
[2022-10-28] MEDS: Aspirin E.C. 81 MG Tablet PO (08:13)
[2022-10-28] MEDS: Carvedilol 3.125 MG TABLET PO ×2 (08:13→21:15)
[2022-10-28] MEDS: Clopidogrel Bisulfate 75 MG Tablet PO (08:13)
[2022-10-28] MEDS: Lisinopril 5 MG Tablet PO (08:13)
[2022-10-28] MEDS: Spironolactone 25 MG Tablet 12.5 MG PO (08:16)
[2022-10-28 08:36] LABS: Bedside Glucose 155 mg/dL (74-106)
[2022-10-28] MEDS: Potassium Chloride Oral Tablet 20 MEQ 40 MEQ PO (09:55)
[2022-10-28] MEDS: Potassium Chloride 10mEq/100mL 10 MEQ/100 ML IV.SOLN. 100 MEQ IV BOLUS ×4 (10:11→15:11)
--- NOTE | 2022-10-28 10:54 | CL.D_ITS ---
Patient Name: MIRIAM DURHAM Study Date: 10/28/2022 Performing: Tabby Crzu MD Ht: 65 inches 165.1 cm : 1940 Wt: 176.4 lbs 79.9 kg Age: 82 Gender: female BSA: 1.87 PROCEDURE(S) PERFORMED DC02-([id number])[facility] [place] CLINICAL PROFILE AND INDICATIONS Indications: ACS > 24 hrs, Cardiomyopathy Heart Failure: None CONCLUSIONS Severely calcific non-obstructive CAD RECOMMENDATIONS Medical therapy Risk factor modification DESCRIPTION OF PROCEDURE The patient arrived to the procedure lab. The risks and benefits of the procedure as well as a full description of our services here and current unavailability of surgical backup were fully explained to the patient and/or their significant other prior to the catheterization. The Timeout was completed, verifying the correct patient and procedure. The patient's procedural site was prepped and draped in the usual fashion. Local anesthetic was given subcutaneously to right radial region with Lidocaine 2%. Using a modified Seldinger technique, arterial access was obtained via the right radial artery, a 6Fr sheath was inserted. Left Coronary Artery selective angiography was performed in multiple views using a 5 Fr. 4.0 [place] catheter. Right Coronary Artery selective angiography was then performed in multiple views using a 5 Fr. 4.0 [place] catheter.The arterial sheath was pulled and a TR Band was applied for hemostasis. 10cc air inserted. CORONARY ANGIOGRAPHY DOMINANCE: Right Dominant LEFT HEART ASSESSMENT Left Ventricular Ejection Fraction: Not assessed LEFT MAIN: Calcified 30% Proximal lesion in Left Main LEFT ANTERIOR DESCENDING ARTERY: LAD: Calcified 50% Ostial lesion in LAD CIRCUMFLEX ARTERY: CIRCUMFLEX: Calcified 20% Proximal lesion in Circumflex RIGHT CORONARY ARTERY: RCA: Calcified 50% Mid lesion in RCA COMPLICATIONS No Complications PROCEDURE MEDICATIONS Oxygen: 6 L/min via nasal cannula Heparin given IA 10/28/2022 10:17:39 Heparin 2000 unit(s) IV 10/28/2022 10:22:01 Potassium Chloride 40 mEq PO 10/28/2022 09:55:42 Potassium Chloride 10 mEq in 100cc NS 10/28/2022 10:11:25 Tylenol 650 mg PO 10/28/2022 10:44:17 SUMMARY OF HEMODYNAMIC DATA Time AIR REST ECG 10:00:04 AO 132/68 (92) SA 10:21:52 Signed By Tabby Cruz MD On 10/28/2022 10:53:30 Tabby Cruz MD
[2022-10-28 12:35] LABS: Bedside Glucose 156 mg/dL (74-106)
[2022-10-28] MEDS: Acetaminophen 325 MG Tablet 650 MG PO ×2 (14:21→22:23)
--- NOTE | 2022-10-28 15:05 | PCM.PN.HOSP ---
Subjective Subjective Patient states she feels markedly better since presentation. Plan is for cardiac catheterization today. Oxygen has been weaned to 2 L. No significant issues through the night. Objective Data Objective Data Vital Signs: Vital Signs Temp Pulse Resp BP Pulse Ox O2 Del Method O2 Flow Rate 97.4 F L 74 17 96/72 93 Nasal Cannula 2 10/28/22 12:50 10/28/22 12:50 10/28/22 12:50 10/28/22 12:50 10/28/22 12:50 10/28/22 12:50 10/28/22 12:50 FiO2 30 10/28/22 01:54 Oxygen Flow Rate (L/min) 2 Oxygen Delivery Method Nasal Cannula Weight: 79.9 kg Body Mass Index (BMI) 28.3 Intake & Output: Intake and Output for Last 24 Hours 10/26/22 10/27/22 10/28/22 23:59 23:59 23:59 Intake Total 520.53 / 520.53 141.71 / 141.71 200 / 200 Output Total 1600 / 1800 1400 / 1650 250 / 250 Balance -1079.47 / -1279.47 -1258.29 / -1508.29 -50 / -50 Lab / Micro Data Result Diagrams: 10/28/22 03:45 10/28/22 03:45 Labs: Laboratory Results - last 24 hr 10/27/22 16:37: POC Glucose 178 H 10/27/22 20:58: POC Glucose 151 H 10/28/22 03:45: WBC 8.4, RBC 4.07 L, Hgb 12.5, Hct 38.3, MCV 94.1, MCH 30.7, MCHC 32.6, RDW Std Deviation 46.5 H, RDW Coeff of James[place] 13.5, Plt Count 203, MPV 10.6, Immature Gran % (Auto) 0.200, Neut % (Auto) 57.5, Lymph % (Auto) 31.7, [place] % (Auto) 7.6, Eos % (Auto) 2.0, Baso % (Auto) 1.0, Absolute Neuts (auto) 4.8, Absolute Lymphs (auto) 2.66, Nucleated RBC % 0 10/28/22 03:45: Sodium 137, Potassium 3.0 L, Chloride 101, Carbon Dioxide 31.0, Anion Gap 5, BUN 23 H, Creatinine 0.86, Estim Creat Clear Calc 43.82, Est GFR (MDRD) Af Amer 81, Est GFR (MDRD) Non-Af 67, BUN/Creatinine Ratio 26.9 H, Glucose 147 H, Calcium 8.2 L 10/28/22 08:11: POC Glucose 155 H 10/28/22 12:13: POC Glucose 156 H Micro: Microbiology 10/26/22 09:05 Blood Culture (Wb) #2 - Anticubital Left Blood Culture - Preliminary No growth in 48 hours. 10/26/22 07:45 Blood Culture (Wb) - Anticubital Left Blood Culture - Preliminary No growth in 48 hours. 10/26/22 07:40 Nasal Secretion SARS-CoV-2 & FLU Antigen (Rapid) - Final Rhythm Strip Rhythm Strip: Sinus Rhythm Rate: 130 Ectopy: PVC(s) Physical Exam Const alert, oriented x3, no apparent distress and well nourished Constitutional Narrative: Elderly white female sitting up in a chair at the bedside currently on 2 L nasal cannula, appears comfortable, daughter at bedside brushing her mother's hair General Appearance: cooperative HEENT normocephalic, head/scalp atraumatic and moist oral mucous membranes Resp normal respiratory effort, no retractions, no use of accessory muscles and clear to auscultation bilaterally Resp Narrative: Diminished but clear Auscultation: Negative for crackles, rhonchi or wheezes Cardio regular rate, regular rhythm, S1 normal heart sound, S2 normal heart sound, no murmurs, no rub, no gallops, no clicks and no JVD GI normal to inspection, nondistended, normoactive bowel sounds, soft to palpation and non-tender Extremity Extremity Narrative: No significant edema, bilateral lower extremity Yovany wraps in place, 2+ pedal pulses, no cyanosis or clubbing Neuro oriented x3, moves all extremities and no focal motor deficits Speech: speech normal Psych affect normal Psych Narrative: Very pleasant and appropriately interactive Assessment & Plan Assessment/Plan (1) Acute respiratory failure with hypoxia and hypercapnia: (2) Acute CHF: (3) Elevated troponin: (4) Leukocytosis: (5) Respiratory acidosis: (6) Lactic acidosis: (7) GERD (gastroesophageal reflux disease): (8) Cardiomyopathy: (9) Dyslipidemia: (10) NSTEMI (non-ST elevated myocardial infarction): PLAN: Plan Acute hypoxic and hypercapnic respiratory failure secondary to decompensated HFrEF -ABG on presentation showed pH of 7.19/PCO2 of 58.7/PO2 of 129 on 5 L nasal cannula -Required BiPAP on admission -Now weaned to 2 L nasal cannula -Continue p.o. Lasix 40 mg daily per cardiology -Continue Page for accurate I's and O's -Continue Daily weights -Fluid restriction to 1500 cc -Continue low-sodium diet -Echocardiogram demonstrated an EF of 20% with only the basal portion of the LV moving, stage II diastolic dysfunction, moderate left atrial enlargement, severe pulmonary artery hypertension and moderate aortic valve insufficiency Decompensated HFrEF -P.o. Lasix per cardiology -Continue home lisinopril -Continue Coreg -Continue Aldactone -Cardiac catheterization pending -Echo was suggestive of Takotsubo cardiomyopathy and EF was 20% NSTEMI -Continue aspirin -Continue home atorvastatin -Continue carvedilol -Plavix initiated by cardiology -Continue home YOVANY inhibitor -Cardiac catheterization pending Hypertension -Continue home lisinopril -Continue Coreg -Continue Aldactone GERD -Continue home PPI Hypothyroidism -Continue levothyroxine -TSH was 2.7 Hyperlipidemia -Continue home atorvastatin -Total cholesterol 148/LDL 58/HDL 71/triglyceride 69 DM-2 -hemoglobin A1c is 7.1 -Consider discontinuing metformin at discharge and starting Jardiance with HFrEF -Sliding scale insulin -Accu-Cheks as ordered Urinary incontinence -Continue home oxybutynin History of tobacco abuse -Remote History of alcohol abuse -Remote DVT prophylaxis -Subcu heparin -SCDs CODE STATUS -DNR CCA with no intubation as verified in the emergency department with her daughter at the bedside at the time of admission Disposition: -Possible discharge in the next 24 hours depending on cardiac input and clinical picture Charges/Coding Visit Charges Inpatient E&M: 82275 Subs Hosp L2
[2022-10-28 17:06] LABS: Bedside Glucose 169 mg/dL (74-106)
[2022-10-28] MEDS: 0.9% Normal Saline 1,000 ML 75 ML IV (18:05)
[2022-10-28] MEDS: Heparin Injection (Vial) 5,000 UNIT/ML VIAL 5000 UNIT SC (21:14)
[2022-10-28] MEDS: Atorvastatin Calcium 20 MG Tablet PO (21:14)
[2022-10-28 22:06] LABS: Bedside Glucose 167 mg/dL (74-106)
--- NOTE | 2022-10-28 23:06 | PCM.HOSP.N ---
Hospitalist Note Patient requesting her home pepcid. Discussed with staff that her pepcid is ordered; however, facility change to protonix and she is already getting this medication. Will add PRN mylanta. Also, patient very anxious and requesting something for her anxiety. Will trial a x 1 low dose of oral ativan.
[2022-10-28] MEDS: LORazepam 0.5 MG Tablet PO (23:20)
[2022-10-29] VITALS (17 sets, daily range): BP systolic 93–130; BP diastolic 61–75; PULSE 62–83; RESP 12–21; TEMP 36.1–36.8; O2SAT 92–95
[2022-10-29] MEDS: 0.9% Normal Saline 1,000 ML 75 ML IV (03:25)
[2022-10-29 04:06] LABS: Anion Gap 5 (5-15); BUN 12 mg/dL (7-18); Calcium,Total 8.3 mg/dL (8.5-10.1); Chloride 105 mmol/L (98-107); Creatinine, Serum 0.63 mg/dL (0.55-1.02); EST Glomerular Filtration Rate 95 mL/min (>60); Est Glom Filt Rate - Afr Amer 116 mL/min (>60); Estimated Creatinine Clearance 37.68 ml/min; Glucose 147 mg/dL (74-106); Potassium 4.1 mmol/L (3.5-5.1); Sodium Level 138 mmol/L (136-145)
[2022-10-29] MEDS: Levothyroxine 88 MCG Tablet PO (06:36)
[2022-10-29] MEDS: Aspirin E.C. 81 MG Tablet PO (10:10)
[2022-10-29] MEDS: Carvedilol 3.125 MG TABLET PO ×2 (10:11→21:59)
[2022-10-29] MEDS: Spironolactone 25 MG Tablet 12.5 MG PO (10:11)
[2022-10-29] MEDS: Tolterodine Tartrate 2 MG CAP.SA PO (10:11)
[2022-10-29] MEDS: Potassium Chloride Oral Tablet 20 MEQ PO (10:11)
[2022-10-29] MEDS: Furosemide 40 MG Tablet PO ×2 (10:11→21:59)
[2022-10-29] MEDS: Heparin Injection (Vial) 5,000 UNIT/ML VIAL 5000 UNIT SC ×2 (10:11→21:59)
[2022-10-29] MEDS: Acetaminophen 325 MG Tablet 650 MG PO ×3 (10:12→23:46)
[2022-10-29] MEDS: Clopidogrel Bisulfate 75 MG Tablet PO (10:12)
[2022-10-29] MEDS: Pantoprazole Sodium 20 MG Tablet PO (10:12)
[2022-10-29] MEDS: Lisinopril 5 MG Tablet PO (10:12)
--- NOTE | 2022-10-29 10:40 | CT_ITS ---
We are attempting to reach an attending provider to discuss findings. An addendum with communication details will be sent when the communication is complete. INDICATION: Confusion EXAMINATION: CT BRAIN - CT Head or Brain W/O Contrast Injection TECHNIQUE: Multiple axial images were obtained of the head without intravenous contrast. A radiation dose optimization technique was used for this scan. IV Contrast dosage and agent: None. COMPARISON: None FINDINGS: No acute intracranial hemorrhage. No significant midline shift. Age-appropriate size and configuration of the ventricles. No hydrocephalus. There is a large area of low-attenuation in the left occipital lobe and portions of the left cerebellum concerning for edema associated with acute ischemia. Chronic small vessel ischemic changes. No acute calvarial fracture. Soft tissues are unremarkable. Orbits and globes are unremarkable. The sinuses are patent. Mastoid air cells are clear. CT/Brain/Head without Contrast IMPRESSION: 1. Findings concerning for acute infarct in the left occipital lobe and portions of the left cerebellum. 2. No acute intracranial hemorrhage or significant midline shift. Findings were discussed with Dianna Carter, PICKING TABLE WORKER at 11:35 AM on 10/29/[address] SALAMANCA. Electronically Signed: Wilton Salamanca, at 11:59 EST ,
--- NOTE | 2022-10-29 11:58 | CHAPLAIN ---
Type of Pastoral Visit ___ Initial Visit _x__ Follow-up Visit ___ On-call Visit ___ General Patient Visit ___ Spiritual Assessment ___ Family Conference ___ Bereavement ___ Rapid Response ___ Code Blue ___ Other (describe below) Pastoral Care Referral From _x__ Patient ___ Family ___ Nurse ___ Physician ___ Tool And Die Maker Apprentice ___ Semiautomatic Stitcher Operator ___ Other (describe below) Sacrament/Intervention _x__ Active listening ___ Anointing ___ Denominational ___ Bereavement ___ Communion ___ Charley exploration ___ ___ Life review _x__ Prayer ___ Reconciliation ___ Sacrament of Sick ___ Supportive presence ___ Wedding ___ Other (describe below) Pastoral Comments patient reports that she is doing well; family members are with her; pt expects to go home today; pt welcomes a prayer for support
--- NOTE | 2022-10-29 12:19 | CDU_ITS ---
Reason For Study: STROKE Rt. Velocities/BP Lt. Velocities/BP Prox CCA 32.7/8.1 cm/sec. Prox CCA 63.6/13.1 cm/sec. Mid CCA 48.7/12.8 cm/sec. Mid CCA 66.9/12.0 cm/sec. Dist CCA 45.9/11.0 cm/sec. Dist CCA 59.2/18.6 cm/sec. Prox ICA 69.5/13.8 cm/sec. Prox ICA 97.0/18.0 cm/sec. Mid ICA 94.1/21.5 cm/sec. Mid ICA 67.4/15.8 cm/sec. Dist ICA 97.7/30.2 cm/sec. Dist ICA 84.6/13.4 cm/sec. Rt. ICA/CCA = 97.7/48.7=2.0. Lt. ICA/CCA = 97.0/66.9=1.4. Prox ECA 83.7/8.1 cm/sec. Prox ECA 242.2/6.1 cm/sec. Rt. Vert. 55.9/10.9 cm/sec. Lt. Vert. 47.7/7.2 cm/sec. Right Extracranial There is heterogeneous, irregular atherosclerotic plaque noted in the right common carotid artery. There is heterogeneous, irregular atherosclerotic plaque noted in the right internal carotid artery. The atherosclerotic plaque causes acoustic shadowing. There is heterogeneous, irregular atherosclerotic plaque noted in the right external carotid artery. Antegrade flow is noted in the right vertebral artery. Left Extracranial There is heterogeneous, irregular atherosclerotic plaque noted in the left common carotid artery. There is heterogeneous, irregular atherosclerotic plaque noted in the left internal carotid artery. There is heterogeneous, irregular atherosclerotic plaque noted in the left external carotid artery. Antegrade flow is noted in the left vertebral artery. Procedure Carotid Duplex 14409. This is a Carotid Duplex examination using B-mode, color flow and specral Doppler. The study was technically difficult. Exam performed portable in patient room. VL/Carotid Duplex Ultrasound Interpretation Summary Irregular calcific plaque at the proximal right internal carotid artery with sh adowing and less than 50% stenosis. Less than 50% stenosis right external carotid artery Irregular calcific plaque with some shadowing at the proximal left internal car otid artery with less than 50% stenosis Greater than 50% stenosis left external carotid artery Patent and antegrade vertebral arteries bilaterally The examination was noted to be technically difficult Ordering Physician: Briana Perez Referring Physician: Han Conn Performed By: Neva Carpio, JEREMÍAS, RVT
--- NOTE | 2022-10-29 12:19 | TELEMED_ITS ---
[facility] Tele[facility] has confirmed receipt of a request for visit. This document confirms receipt of the order initiating the consult. To find the results of the consultation, please view the patient's reports for the scanned Telemed Consult.
--- NOTE | 2022-10-29 13:44 | PCM.PN.CARD ---
Subjective Subjective Note chest pain or shortness of breath. Complains of headache. Confusion last night. Resolved this morning. Objective Data Vital Signs: Vital Signs Temp Pulse Resp BP Pulse Ox O2 Del Method O2 Flow Rate 98.0 F 75 18 93/61 95 Room Air 2 10/29/22 09:58 10/29/22 11:14 10/29/22 09:58 10/29/22 09:58 10/29/22 11:13 10/29/22 11:13 10/29/22 09:58 FiO2 30 10/29/22 03:44 Oxygen Flow Rate (L/min) 2 Oxygen Delivery Method Room Air Weight: 180 lb 8.937 oz Body Mass Index (BMI) 28.3 Intake & Output: Intake and Output for Last 24 Hours 10/27/22 10/28/22 10/29/22 23:59 23:59 23:59 Intake Total 141.71 / 141.71 1175.75 / 1175.75 1221.25 / 1221.25 Output Total 1400 / 1650 252 / 252 0 / 0 Balance -1258.29 / -1508.29 923.75 / 923.75 1221.25 / 1221.25 Lab / Micro Data Result Diagrams: 10/28/22 03:45 10/29/22 03:30 Labs: Laboratory Results - last 24 hr 10/28/22 16:43: POC Glucose 169 H 10/28/22 21:12: POC Glucose 167 H 10/29/22 03:30: Sodium 138, Potassium 4.1, Chloride 105, Carbon Dioxide 28.0, Anion Gap 5, BUN 12, Creatinine 0.63, Estim Creat Clear Calc 37.68, Est GFR (MDRD) Af Amer 116, Est GFR (MDRD) Non-Af 95, BUN/Creatinine Ratio 19.0, Glucose 147 H, Calcium 8.3 L Rhythm Strip Rhythm Strip: Sinus Rhythm Rate: 130 Ectopy: PVC(s) Cardiology Labs/Tests 10/29/22 03:30: Sodium 138, Potassium 4.1, Chloride 105, Carbon Dioxide 28.0, Anion Gap 5, BUN 12, Creatinine 0.63, Est GFR (MDRD) Af Amer 116, Est GFR (MDRD) Non-Af 95, BUN/Creatinine Ratio 19.0, Glucose 147 H, Calcium 8.3 L Rhythm: EKG: ECHO: Stress Test: Cardiac Cath: PCI: CT Surgery: Holter monitor: EPS: PPM: CXR: Chest CT Scan: Radiography Diagnostic Testing: Radiology Impression Brain CT 10/29/22 10:40 IMPRESSION: 1. Findings concerning for acute infarct in the left occipital lobe and portions of the left cerebellum. 2. No acute intracranial hemorrhage or significant midline shift. Findings were discussed with Dianna Carter, HEALTH INFORMATION CLERK at 11:35 AM on 10/29/[address] SALAMANCA. Electronically Signed: Wilton Salamanca, at 11:59 EST , ADDENDUM: 10/29/22 1251 IMPRESSION: 1. Findings concerning for acute infarct in the left occipital lobe and portions of the left cerebellum. 2. No acute intracranial hemorrhage or significant midline shift. Findings were discussed with Dianna Carter HEALTH INFORMATION CLERK at 11:35 AM on 10/29/[address] SALAMANCA. N.B. : The above Results were Read Back by Wilton Salamanca to , ASHLEE, and understanding confirmed on 10/29/2022 12:44:28 (ET). Electronically Signed: Wilton Salamanca, at 11:59 EST , Physical Exam Narrative Comfortable. No apparent distress. Heart sounds 1 and 2 are normal. Chest clear to auscultation bilaterally. Alert oriented x3. Moving all 4 extremities. Right radial pulse 2+. Assessment & Plan Assessment/Plan (1) NSTEMI (non-ST elevated myocardial infarction): PLAN: Severely calcified nonobstructive disease noted on coronary angiography. Continue medical management. (2) Acute CHF: PLAN: Class IV CHF on presentation. Feels much better after diuresis. Presently class II. Medications. (3) Cardiomyopathy: PLAN: No ischemic. See #2 above. (4) Diabetes: PLAN: As per internal medicine. (5) Dyslipidemia: PLAN: On atorvastatin. (6) CVA (cerebral vascular accident): PLAN: As per neurology.
--- NOTE | 2022-10-29 15:21 | CASEMGMT ---
Addendum entered by Vaughn Kemp 10/29/22 16:03: Pt and dtr's made aware [facility] pt. Green sheet on chart. Original Note: HAMLET SHORT NOTE: Pt + for acute CVA. Neuro c/s pending. PT/OT and ST evals have all been done and RU recommended by ST and PT/OT state RU would be beneficial. RN CM to room to discuss discharge planning. 2 dtr's @ bedside. One dtr is Jeannette. Pt lives alone. Dtr's voice concern about pt safety of pt being home alone and they state do not feel comfortable taking care of her 24/7 and would like her to go to somewhere for rehab. Dtr states she pt is cantankerous and will not listen to her and she does not want to be responsible for her trying 24/7, as she is concerned she will try to drive. She also stated pt has current limitations of not being able to use the phone to call for help and is having difficulty reading. Discussed differences b/w SNF's and RU's. A list of RU providers including quality and resource use data and consistent with the patient?s preferred geographic region, medical needs, and insurance network were provided from the [facility] [facility]. They choose [facility]. Pt voiced frustration re: going somewhere for therapy before returning home. She stated she is not happy about having to go somewhere, but that she is agreeable, stating, If it wasn't for the fact that I can't read now, I'd go home. Call placed to [facility] @ [facility] and referral made. She states they can accept pt. Per Dr Perez, she anticipates pt will be medically ready for discharge tomorrow. [facility] made aware and states they can take pt tomorrow. Dr Perez made aware. Joana ZARAGOZA RN, CM
--- NOTE | 2022-10-29 16:13 | PN.HOSP_ITS ---
Subjective Subjective Patient with some increased confusion overnight. States she feels better this morning. CT was ordered earlier this morning by cardiology and came back with results showing an ischemic stroke in the left occipital and cerebellar. I discussed the results with the patient and the family at the bedside. She is already on aspirin and Plavix as well as a statin. I did inform them would get neurology involved to see if there was any additional recommendations however I did feel that this was atheroembolic related to her cardiac catheterization yesterday and it is a known potential consequence of cardiac catheterization. They voiced understanding. Physical therapy and Occupational Therapy will be by to see her to make sure she is safe to go home when we are ready for discharge. Objective Data Objective Data Vital Signs: Vital Signs Temp Pulse Resp BP Pulse Ox O2 Del Method O2 Flow Rate 97.7 F L 73 15 107/64 93 Room Air 2 10/29/22 13:48 10/29/22 15:05 10/29/22 13:48 10/29/22 13:48 10/29/22 13:48 10/29/22 13:48 10/29/22 09:58 FiO2 30 10/29/22 03:44 Oxygen Flow Rate (L/min) 2 Oxygen Delivery Method Room Air Weight: 81.9 kg Body Mass Index (BMI) 28.3 Intake & Output: Intake and Output for Last 24 Hours 10/27/22 10/28/22 10/29/22 23:59 23:59 23:59 Intake Total 141.71 / 141.71 1175.75 / 1175.75 1221.25 / 1221.25 Output Total 1400 / 1650 252 / 252 0 / 0 Balance -1258.29 / -1508.29 923.75 / 923.75 1221.25 / 1221.25 Lab / Micro Data Result Diagrams: 10/28/22 03:45 10/29/22 03:30 Labs: Laboratory Results - last 24 hr 10/28/22 16:43: POC Glucose 169 H 10/28/22 21:12: POC Glucose 167 H 10/29/22 03:30: Sodium 138, Potassium 4.1, Chloride 105, Carbon Dioxide 28.0, Anion Gap 5, BUN 12, Creatinine 0.63, Estim Creat Clear Calc 37.68, Est GFR (MDRD) Af Amer 116, Est GFR (MDRD) Non-Af 95, BUN/Creatinine Ratio 19.0, Glucose 147 H, Calcium 8.3 L Micro: Microbiology 10/26/22 09:05 Blood Culture (Wb) #2 - Anticubital Left Blood Culture - Preliminary No growth in 48 hours. 10/26/22 07:45 Blood Culture (Wb) - Anticubital Left Blood Culture - Preliminary No growth in 48 hours. 10/26/22 07:40 Nasal Secretion SARS-CoV-2 & FLU Antigen (Rapid) - Final Radiography Diagnostic Testing: Radiology Impression Brain CT 10/29/22 10:40 IMPRESSION: 1. Findings concerning for acute infarct in the left occipital lobe and portions of the left cerebellum. 2. No acute intracranial hemorrhage or significant midline shift. Findings were discussed with Dianna Carter, PROCESSING OPERATOR at 11:35 AM on 10/29/[address] SALAMANCA. Electronically Signed: Wilton Salamanca, at 11:59 EST , ADDENDUM: 10/29/22 1251 IMPRESSION: 1. Findings concerning for acute infarct in the left occipital lobe and portions of the left cerebellum. 2. No acute intracranial hemorrhage or significant midline shift. Findings were discussed with Dianna Carter, PROCESSING OPERATOR at 11:35 AM on 10/29/[address] SALAMANCA. N.B. : The above Results were Read Back by Wilton Salamanca to , ASHLEE, and understanding confirmed on 10/29/2022 12:44:28 (ET). Electronically Signed: Wilton Salamanca, at 11:59 EST , Rhythm Strip Rhythm Strip: Sinus Rhythm Rate: 130 Ectopy: PVC(s) Physical Exam Const alert, oriented x3, no apparent distress and well nourished Constitutional Narrative: Elderly white female sitting up in a chair at the bedside currently on room air, appears comfortable, daughters are at bedside General Appearance: cooperative HEENT normocephalic, head/scalp atraumatic and moist oral mucous membranes Eyes PERRL, EOMs intact bilaterally and conjunctivae normal Eyes Narrative: No scleral icterus Neck no lymphadenopathy, supple, no JVD and no carotid bruits Neck Narrative: trachea midline, no thyroid enlargement Resp normal respiratory effort, no retractions, no use of accessory muscles and clear to auscultation bilaterally Resp Narrative: Diminished but clear Auscultation: Negative for crackles, rhonchi or wheezes Cardio regular rate, regular rhythm, S1 normal heart sound, S2 normal heart sound, no murmurs, no rub, no gallops, no clicks and no JVD GI normal to inspection, nondistended, normoactive bowel sounds, soft to palpation and non-tender Extremity Extremity Narrative: No significant edema, bilateral lower extremity Yovany wraps in place, 2+ pedal pulses, no cyanosis or clubbing Skin no rashes or lesions noted, no wounds, skin turgor normal, no jaundice, no petechiae and no mottling Neuro oriented x3, moves all extremities and no focal motor deficits Neuro Narrative: Patient with bilateral right upper quadrant quadrantanopia all other cranial nerves appear intact Speech: speech normal Psych affect normal Psych Narrative: Very pleasant and appropriately interactive Assessment & Plan Assessment/Plan (1) Acute respiratory failure with hypoxia and hypercapnia: (2) Acute CHF: (3) Elevated troponin: (4) Leukocytosis: (5) Respiratory acidosis: (6) Lactic acidosis: (7) GERD (gastroesophageal reflux disease): (8) Cardiomyopathy: (9) Dyslipidemia: (10) NSTEMI (non-ST elevated myocardial infarction): (11) CVA (cerebral vascular accident): PLAN: Plan Acute hypoxic and hypercapnic respiratory failure secondary to decompensated HFrEF -ABG on presentation showed pH of 7.19/PCO2 of 58.7/PO2 of 129 on 5 L nasal cannula -Required BiPAP on admission -Has been weaned to room air and respiratory failure is resolved -Continue oral Lasix -Continue Page for accurate I's and O's -Continue Daily weights -Fluid restriction to 1500 cc -Continue low-sodium diet -Echocardiogram demonstrated an EF of 20% with only the basal portion of the LV moving, stage II diastolic dysfunction, moderate left atrial enlargement, severe pulmonary artery hypertension and moderate aortic valve insufficiency Decompensated HFrEF -Now compensated -Increase Lasix to twice daily and monitor renal function--> may be able to discharge on daily -Continue home lisinopril -Continue Coreg -Continue Aldactone -Cardiac catheterization demonstrated severely calcific nonobstructive CAD -No intervention and plan is to continue aggressive medical therapy -Echo was suggestive of Takotsubo cardiomyopathy and EF was 20% NSTEMI -Continue aspirin -Continue statin but increase to 40 mg daily for moderate dosing -Continue carvedilol -Continue Plavix -Continue home YOVANY inhibitor -Cardiac catheterization pending Acute atheroembolic stroke -Likely related to cardiac catheterization -Already on Plavix -Already on aspirin -Already on aggressive statin therapy -Start NIH serial assessments -PT/OT consultation -Neurology consult Hypertension -Continue home lisinopril -Continue Coreg -Continue Aldactone GERD -Continue home PPI Hypothyroidism -Continue levothyroxine -TSH was 2.7 Hyperlipidemia -Continue home atorvastatin -Total cholesterol 148/LDL 58/HDL 71/triglyceride 69 DM-2 -hemoglobin A1c is 7.1 -Consider discontinuing metformin at discharge and starting Jardiance with HFrEF -Sliding scale insulin -Accu-Cheks as ordered Urinary incontinence -Continue home oxybutynin History of tobacco abuse -Remote History of alcohol abuse -Remote DVT prophylaxis -Subcu heparin -SCDs CODE STATUS -DNR CCA with no intubation as verified in the emergency department with her daughter at the bedside at the time of admission Disposition: -With acute stroke discharge has been held up. Anticipate discharge to rehab tomorrow Charges/Coding Visit Charges Inpatient E&M: 7[address]52 [facility] H[facility] L3
[2022-10-29] MEDS: Atorvastatin Calcium 40 MG Tablet PO (21:59)
[2022-10-29] MEDS: Insulin Lispro 100 UNIT/ML INSULN.PEN SC (22:19)
[2022-10-29 23:15] LABS: Bedside Glucose 150 mg/dL (74-106)
[2022-10-30] VITALS (12 sets, daily range): BP systolic 98–123; BP diastolic 63–75; PULSE 53–71; RESP 12–20; TEMP 36.5; O2SAT 93–98
[2022-10-30 05:16] LABS: Absolute Lymphocyte Count 2.71 X10^3/uL (0.83-4.51); Absolute Neutrophil Count 3.1 X10^3/uL (2.0-7.7); Basophil# 0.08 X10^3/uL; Basophil% 1.2 % (0-1); Eosinophil# 0.24 X10^3/uL; Eosinophils% 3.6 % (0-5); Hematocrit 35.2 % (37-47); Hemoglobin 11.3 g/dL (12.0-15.0); Lymphocyte # 2.71 X10^3/ul (0.83-4.51); Lymphocyte % 40.6 % (19-41); Mean Corp Hgb Conc 32.1 g/dL (32-36); Mean Corpuscular Hgb 30.5 pg (27.0-32.0); Mean Corpuscular Volume 94.9 fL (81-99); Mean Platelet Vol. 11.1 fl (6.2-12.0); Monocyte# 0.48 X10^3/uL; Monocyte% 7.2 % (0-10); NRBC Flagged by Analyzer 0 % (0-5); Neutrophil # 3.14 X10^3/uL (2.7-7.7); Neutrophil % 47.1 % (47-70); Platelet Count 217 K/mm3 (150-450); RBC Distribution Width CV 13.5 % (11.6-14.6); Red Blood Count 3.71 M/mm3 (4.2-5.4); White Blood Count 6.7 K/mm3 (4.4-11.0)
[2022-10-30 05:36] LABS: Anion Gap 5 (5-15); BUN 10 mg/dL (7-18); Calcium,Total 8.4 mg/dL (8.5-10.1); Chloride 106 mmol/L (98-107); Cholesterol 128 mg/dL (200); Creatinine, Serum 0.67 mg/dL (0.55-1.02); EST Glomerular Filtration Rate 90 mL/min (>60); Est Glom Filt Rate - Afr Amer 109 mL/min (>60); Estimated Creatinine Clearance 37.68 ml/min; Glucose 146 mg/dL (74-106); High Density Lipoprotein 58 mg/dL; Magnesium 1.7 mg/dL (1.6-2.6); Sodium Level 139 mmol/L (136-145); Triglycerides 96 mg/dL; Very Low Density Lipoprotein 19 mg/dL (5-40)
[2022-10-30] MEDS: Levothyroxine 88 MCG Tablet PO (06:49)
--- NOTE | 2022-10-30 08:24 | CT_ITS ---
STUDY: CTA HEAD AND NECK WITH CONTRAST REASON FOR EXAM: Female, 82 years old. Stroke RADIATION DOSAGE (If Supplied By Facility): CTDIvol = ( 32.35 ) mGy, DLP = ( 1537.11 ) mGycm TECHNIQUE: CT angiography was performed with a multi-detector CT scanner. Data acquisition was obtained from the skull base through the vertex following intravenous administration of IV 100mL Isovue-370. MIP images were reconstructed from the axial data set. Post-processing of the angiographic images was performed, with multiplanar reformation and 3D reconstruction. Individualized dose optimization techniques were used for this CT. COMPARISON: No relevant priors. FINDINGS: Normal bilateral petrous carotid arteries. Normal right cavernous carotid artery with a normal supraclinoid bifurcation. Normal left cavernous carotid artery with a normal supraclinoid bifurcation. Normal right A1 segment of the anterior cerebral artery. Normal left A1 segment of the anterior cerebral artery. Normal intact anterior communicating artery (ACOM). Normal bilateral A2 segments of the anterior cerebral arteries. Normal right M1 and M2 segments of the middle cerebral arteries, with a normal M1 bifurcation. Normal left M1 and M2 segments of the middle cerebral arteries, with a normal M1 bifurcation. origin of the right posterior cerebral artery off the right internal carotid artery rather than a widely patent right posterior communicating artery (PCOM). Normal left posterior communicating artery (PCOM). Normal bilateral vertebral arteries. Retrograde collateral flow to the intradural segments of the left vertebral artery from the right vertebral artery due to complete occlusion in the cervical segments of the left vertebral artery. Normal basilar artery with a normal basilar bifurcation. The visualized bilateral superior cerebellar (SCA) arteries are normal. Developmentally absent right P1 segment. Occluded P3 segment of the left posterior cerebral artery. Normal left P1 and P2 segments of the left posterior cerebral artery. The right [place] has a origin of the right internal carotid artery. Normal right [place].. There is no demonstrated aneurysm of the pokagon of Singh. Small hypodense subacute ischemic infarctions involving the left cerebellar hemisphere and cortical-based ischemic infarctions in the the left lingual gyrus and along the left parahippocampus. AORTIC ARCH: Normal visualized aortic arch. Widely patent origins of the brachiocephalic, left common carotid, and left subclavian arteries. There is however, near complete occlusion if not complete occlusion of the left subclavian artery proximal to the occluded left vertebral artery. There is collateral flow to the [artery presumably from the left external carotid artery with retrograde filling of the left thyrocervical trunk down to the left subclavian artery artery distal to the occlusion. RIGHT CAROTID ARTERIES: Normal right common carotid artery (CCA). Calcified plaques along the right carotid bulb. 57% stenosis of the right proximal internal carotid artery due to calcified plaques. Widely patent remaining right cervical internal carotid artery. High-grade stenosis at the origin of the right external carotid artery due to noncalcified plaques. LEFT CAROTID ARTERIES: Normal left common carotid artery (CCA). Nonocclusive calcified plaques in the left carotid bulb. Nonocclusive calcified plaque in the left proximal internal carotid artery. Widely patent left cervical internal carotid artery. High-grade stenosis of the right external carotid artery due to heavily calcified plaques. VERTEBRAL ARTERIES: Normal right vertebral artery. Occluded intrathoracic segment and V2 segment of the left vertebral artery. There is retrograde collateral flow from the right vertebral artery into the V3 and V4 segments of the left vertebral artery. CT/STROKE CTA Head AND Neck W/Con IMPRESSION: 1. 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 2. No visible thromboembolic occlusion of the left PICA but distal thromboembolic event most likely occurred causing the infarctions in the left cerebellar hemisphere due to complete occlusion of the V1 and V2 segments of the left vertebral artery. 3. origin of the right posterior cerebral artery off the right internal carotid artery accounting for development absent right P1 segment. 4. No other significant vaso-occlusive disease of the anterior and posterior intracranial circulation. 5. 57% stenosis of the right proximal internal carotid artery due to calcified plaques. 6. High-grade stenosis of the right external carotid artery due to noncalcified plaque. 7. Widely patent left cervical internal carotid artery. 8. High-grade stenosis of the left external carotid artery origin due to heavily calcified plaques. 9. High-grade stenosis if not complete occlusion of the left subclavian artery proximal to the occluded left vertebral artery due to heavily calcified plaques. Contrast opacification distal to the near-complete occlusion if not occluded left subclavian artery is most likely retrograde collateral flow coming from the right thyrocervical trunk to the left thyrocervical trunk and from the right occipital artery to the left occipital artery and retrograde collateral flow to the ascending cervical segment of the left subclavian artery. 10. Normal aortic arch and origins of the great vessels. N.B. : The above Results were Read Back by Evan Clark MD to MADY SCHUSTER MD, and understanding confirmed on 10/30/2022 09:56:12 (ET). Electronically Signed: Evan Clark MD at 10:07 EST ,
--- NOTE | 2022-10-30 08:29 | NURSING ---
Patient called out stating that she felt that he blood sugar was low before 0700. Accucheck showed BGT of 81. Patient requested, and was given, pack of crackers and glass of orange juice. Patient called out again at 0715 stating that she felt like her blood sugar was getting low. Recheck showed BGT 147, patient assisted with ordering her breakfast. Patient stated that she did not want any insulin with her breakfast because her blood sugar had been low
[2022-10-30] MEDS: Pantoprazole Sodium 20 MG Tablet PO (08:53)
[2022-10-30] MEDS: Heparin Injection (Vial) 5,000 UNIT/ML VIAL 5000 UNIT SC (08:54)
[2022-10-30] MEDS: Tolterodine Tartrate 2 MG CAP.SA PO (08:54)
[2022-10-30] MEDS: Spironolactone 25 MG Tablet 12.5 MG PO (08:54)
[2022-10-30] MEDS: Lisinopril 5 MG Tablet PO (08:55)
[2022-10-30] MEDS: Potassium Chloride Oral Tablet 20 MEQ PO (08:55)
[2022-10-30] MEDS: Furosemide 40 MG Tablet PO (08:56)
[2022-10-30] MEDS: Aspirin E.C. 81 MG Tablet PO (08:56)
[2022-10-30] MEDS: Carvedilol 3.125 MG TABLET PO (08:56)
[2022-10-30] MEDS: Clopidogrel Bisulfate 75 MG Tablet PO (08:56)
--- NOTE | 2022-10-30 11:03 | PCM.PN.CARD ---
Subjective Subjective The patient is awake and alert. She admits that she has difficulty hearing. She states her main concern at this time as her persistent headache. She denies ongoing chest discomfort or difficulty breathing or lower extremity edema. She states she has been up and ambulating and has felt reasonably well without any acute distress. Objective Data Vital Signs: Vital Signs Temp Pulse Resp BP Pulse Ox O2 Del Method O2 Flow Rate 97.7 F L 68 16 98/63 94 Room Air 3 10/30/22 02:00 10/30/22 10:10 10/30/22 10:10 10/30/22 10:10 10/30/22 10:34 10/30/22 10:34 10/29/22 21:56 FiO2 30 10/30/22 06:00 Oxygen Flow Rate (L/min) 3 Oxygen Delivery Method Room Air Weight: 176 lb 9.444 oz Body Mass Index (BMI) 28.3 Intake & Output: Intake and Output for Last 24 Hours 10/28/22 10/29/22 10/30/22 23:59 23:59 23:59 Intake Total 1175.75 / 1175.75 1221.25 / 1221.25 Output Total 252 / 252 350 / 350 Balance 923.75 / 923.75 871.25 / 871.25 Lab / Micro Data Result Diagrams: 10/30/22 05:00 10/30/22 05:00 Labs: Laboratory Results - last 24 hr 10/29/22 22:06: POC Glucose 150 H 10/30/22 05:00: Sodium 139, Potassium 4.0, Chloride 106, Carbon Dioxide 28.0, Anion Gap 5, BUN 10, Creatinine 0.67, Estim Creat Clear Calc 37.68, Est GFR (MDRD) Af Amer 109, Est GFR (MDRD) Non-Af 90, BUN/Creatinine Ratio 15.0, Glucose 146 H, Calcium 8.4 L, Magnesium 1.7, Triglycerides 96, Cholesterol 128, LDL Cholesterol 51, VLDL Cholesterol 19, HDL Cholesterol 58 10/30/22 05:00: WBC 6.7, RBC 3.71 L, Hgb 11.3 L, Hct 35.2 L, MCV 94.9, MCH 30.5, MCHC 32.1, RDW Std Deviation 47.0 H, RDW Coeff of [place] 13.5, Plt Count 217, MPV 11.1, Immature Gran % (Auto) 0.300, Neut % (Auto) 47.1, Lymph % (Auto) 40.6, Stevens % (Auto) 7.2, Eos % (Auto) 3.6, Baso % (Auto) 1.2 H, Absolute Neuts (auto) 3.1, Absolute Lymphs (auto) 2.71, Nucleated RBC % 0 Rhythm Strip Rhythm Strip: Sinus Rhythm Rate: 130 Ectopy: PVC(s) Cardiology Labs/Tests 10/30/22 05:00: Sodium 139, Potassium 4.0, Chloride 106, Carbon Dioxide 28.0, Anion Gap 5, BUN 10, Creatinine 0.67, Est GFR (MDRD) Af Amer 109, Est GFR (MDRD) Non-Af 90, BUN/Creatinine Ratio 15.0, Glucose 146 H, Calcium 8.4 L, Magnesium 1.7, Triglycerides 96, Cholesterol 128, LDL Cholesterol 51, VLDL Cholesterol 19, HDL Cholesterol 58 10/30/22 05:00: WBC 6.7, RBC 3.71 L, Hgb 11.3 L, Hct 35.2 L, MCV 94.9, MCH 30.5, MCHC 32.1, Plt Count 217, MPV 11.1, Immature Gran % (Auto) 0.300, Neut % (Auto) 47.1, Lymph % (Auto) 40.6, Stevens % (Auto) 7.2, Eos % (Auto) 3.6, Baso % (Auto) 1.2 H, Absolute Neuts (auto) 3.1, Nucleated RBC % 0 Rhythm: Sinus rhythm ECHO: 10-26-2022 Interpretation Summary The left ventricular ejection fraction is 20 %. Only basal part of LV moving. Consider Takotsubo's cardiomyopathy. Stage 2 diastolic dysfunction. The left atrium is moderately enlarged. Mild (1+) mitral valve insufficiency. Mild to moderate (1-2+) tricuspid valve insufficiency. Severe pulmonary hypertension. Moderate (2+) aortic valve insufficiency. Cardiac Cath: 10-27-2022 CONCLUSIONS Severely calcific non-obstructive CAD RECOMMENDATIONS Medical therapy Risk factor modification DESCRIPTION OF? PROCEDURE The patient arrived to the procedure lab. The risks and benefits of the procedure as well as a full description of our services here and current unavailability of surgical backup were fully explained to the patient and/or their significant other prior to the catheterization. The Timeout was completed, verifying the correct patient and procedure. The patient's procedural site was prepped and draped in the usual fashion. Local anesthetic was given subcutaneously to right radial region with Lidocaine 2%. Using a modified Seldinger technique, arterial access was obtained via the right radial artery, a 6Fr sheath was inserted.? Left Coronary Artery selective angiography was performed in multiple views using a 5 Fr. 4.0 [place] catheter. Right Coronary Artery selective angiography was then performed in multiple views using a 5 Fr. 4.0 [place] catheter.The arterial sheath was pulled and a TR Band was applied for hemostasis. 10cc air inserted. CORONARY ANGIOGRAPHY DOMINANCE:? Right Dominant LEFT HEART ASSESSMENT Left Ventricular Ejection Fraction: Not assessed LEFT MAIN: Calcified 30% Proximal lesion in Left Main LEFT ANTERIOR DESCENDING ARTERY: LAD: Calcified 50% Ostial lesion in LAD CIRCUMFLEX ARTERY: CIRCUMFLEX: Calcified 20% Proximal lesion in Circumflex RIGHT CORONARY ARTERY: RCA: Calcified 50% Mid lesion in RCA Radiography Diagnostic Testing: Radiology Impression Brain CT 10/29/22 10:40 IMPRESSION: 1. Findings concerning for acute infarct in the left occipital lobe and portions of the left cerebellum. 2. No acute intracranial hemorrhage or significant midline shift. Findings were discussed with Dianna Carter STRAIGHTEDGE MACHINE OPERATOR HELPER at 11:35 AM on 10/29/[address] WAGONER. Electronically Signed: Wilton Wagoner, at 11:59 EST , ADDENDUM: 10/29/22 1251 IMPRESSION: 1. Findings concerning for acute infarct in the left occipital lobe and portions of the left cerebellum. 2. No acute intracranial hemorrhage or significant midline shift. Findings were discussed with Dianna Carter STRAIGHTEDGE MACHINE OPERATOR HELPER at 11:35 AM on 10/29/[address] WAGONER. N.B. : The above Results were Read Back by Wilton Wagoner to ASHLEE, and understanding confirmed on 10/29/2022 12:44:28 (ET). Electronically Signed: Wilton Wagoner, at 11:59 EST , Head/Neck CTA 10/30/22 08:24 IMPRESSION: 1. 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 2. No visible thromboembolic occlusion of the left PICA but distal thromboembolic event most likely occurred causing the infarctions in the left cerebellar hemisphere due to complete occlusion of the V1 and V2 segments of the left vertebral artery. 3. origin of the right posterior cerebral artery off the right internal carotid artery accounting for development absent right P1 segment. 4. No other significant vaso-occlusive disease of the anterior and posterior intracranial circulation. 5. 57% stenosis of the right proximal internal carotid artery due to calcified plaques. 6. High-grade stenosis of the right external carotid artery due to noncalcified plaque. 7. Widely patent left cervical internal carotid artery. 8. High-grade stenosis of the left external carotid artery origin due to heavily calcified plaques. 9. High-grade stenosis if not complete occlusion of the left subclavian artery proximal to the occluded left vertebral artery due to heavily calcified plaques. Contrast opacification distal to the near-complete occlusion if not occluded left subclavian artery is most likely retrograde collateral flow coming from the right thyrocervical trunk to the left thyrocervical trunk and from the right occipital artery to the left occipital artery and retrograde collateral flow to the ascending cervical segment of the left subclavian artery. 10. Normal aortic arch and origins of the great vessels. N.B. : The above Results were Read Back by Evan Clark MD to MADY SCHUSTER MD, and understanding confirmed on 10/30/2022 09:56:12 (ET). Electronically Signed: Evan Clark MD at 10:07 EST , ADDENDUM: 10/30/22 1014 IMPRESSION: 1. 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 2. No visible thromboembolic occlusion of the left PICA but distal thromboembolic event most likely occurred causing the infarctions in the left cerebellar hemisphere due to complete occlusion of the V1 and V2 segments of the left vertebral artery. 3. origin of the right posterior cerebral artery off the right internal carotid artery accounting for development absent right P1 segment. 4. No other significant vaso-occlusive disease of the anterior and posterior intracranial circulation. 5. 57% stenosis of the right proximal internal carotid artery due to calcified plaques. 6. High-grade stenosis of the right external carotid artery due to noncalcified plaque. 7. Widely patent left cervical internal carotid artery. 8. High-grade stenosis of the left external carotid artery origin due to heavily calcified plaques. 9. High-grade stenosis if not complete occlusion of the left subclavian artery proximal to the occluded left vertebral artery due to heavily calcified plaques. Contrast opacification distal to the near-complete occlusion if not occluded left subclavian artery is most likely retrograde collateral flow coming from the right thyrocervical trunk to the left thyrocervical trunk and from the right occipital artery to the left occipital artery and retrograde collateral flow to the ascending cervical segment of the left subclavian artery. 10. Normal aortic arch and origins of the great vessels. N.B. : The above Results were Read Back by Evan Clark MD to MADY SCHUSTER MD, and understanding confirmed on 10/30/2022 09:56:12 (ET). Electronically Signed: Evan Clark MD at 10:07 EST , Physical Exam Const alert, oriented x3 and no apparent distress Orientation / Consciousness: awake HEENT normocephalic and head/scalp atraumatic Eyes PERRL, EOMs intact bilaterally, conjunctivae normal and no scleral icterus Neck full ROM, supple and no JVD Resp normal respiratory effort and clear to auscultation bilaterally Cardio regular rate, regular rhythm, S1 normal heart sound and S2 normal heart sound GI normal to inspection, nondistended, normoactive bowel sounds Extremity no pedal edema Skin no rashes or lesions noted Psych mental status grossly normal Assessment & Plan Assessment/Plan (1) NSTEMI (non-ST elevated myocardial infarction): PLAN: The patient had been diagnosed with a non-STEMI. She has undergone further evaluation by Dr. Cruz with both noninvasive and invasive cardiovascular studies. At the present time it appears there is concerned that she has CAD-nonobstructive and an underlying non-CAD related cardiomyopathy (potentially Takotsubo syndrome). She did not require PCI. She has required continued medical management. This has included agent such as aspirin, clopidogrel/Plavix, beta-blockers with carvedilol/Coreg, and lipid-lowering agents with statin such as atorvastatin. (2) CAD (coronary artery disease): PLAN: The patient has a history of findings compatible with nonobstructive CAD. As noted above she did not require PCI. She is continuing risk factor modification medical therapy at this time as described above. (3) Cardiomyopathy: PLAN: The patient's transthoracic echocardiogram was reviewed. Per the report there were concerns that her findings are compatible with a Takotsubo syndrome. She is continuing medical therapy which does include her beta-blockers as well as afterload reducing agents with KIKA inhibitor such as lisinopril. Over time she should be considered for follow-up echocardiogram to monitor as if her LV systolic function/LVEF will improve or not. (4) Acute CHF: PLAN: The patient was reported as having symptoms of acute CHF. She has undergone noninvasive and invasive studies as noted. She has been treated medically as described above with the addition of diuretics including furosemide and spironolactone/Aldactone. She appears to be symptomatically improving at this time. She will continue medical management. (5) Dyslipidemia: PLAN: The patient should continue risk factor evaluation and care with lipid-lowering therapy with her statin-atorvastatin. (6) HTN (hypertension): PLAN: The patient's blood pressure needs to be followed with adjusting her medications accordingly. (7) PAD (peripheral artery disease): PLAN: The patient has undergone various radiologic studies. It appears that she does have evidence of PAD with respect to her cerebrovascular distribution in the left subclavian artery distribution. This will need to be reviewed by her internal medicine team. She may need to be considered for further comment by peripheral vascular surgery. In the interim treating her PAD medically with agents to treat her lipids such as her statins/atorvastatin, antihypertensive therapy with agents such as her beta-blockers/carvedilol, afterload reducing agents with KIKA inhibitor such as her lisinopril, etc. are warranted. (8) CVA (cerebral vascular accident): PLAN: The patient was reported as having CVA. Her radiologic studies are noted. She will need to continue evaluation care per internal medicine and neurology and potentially peripheral vascular surgery based upon the findings of PAD involving her cerebrovascular distribution. Addt'l Comments The patient will continue to be monitored. She will continue medical management. It may be reasonable based upon her overall cardiovascular findings to consider increasing her carvedilol/Coreg dose to 6.25 mg p.o. twice daily and monitor her vital signs. Her other medications can be adjusted accordingly over time. Over time she will need continued outpatient cardiovascular follow-up with consideration to reevaluating her left ventricle by echocardiogram to assist in further ongoing evaluation and care. In the interim she will need continued noncardiovascular evaluation from internal medicine, neurology, possibly peripheral vascular surgery, etc. The patient's cardiovascular case was discussed and reviewed with the patient with her family member present. This note was generated using a voice recognition system and there may be incorrect words, spelling or punctuation that were not noted when reviewing the office note prior to saving. Procedure Criteria Type of Procedure Procedure Type: Elective Elective Risks - COVID COVID Risk Discussion: The surgeon/proceduralist and patient have discussed in detail the risk of exposure to and/or potential harm posed by the COVID-19 virus with having a surgery/procedure at this time versus the risk of delaying the surgery/procedure. It is not possible to know either the risk of delaying the surgery or procedure or chance of getting an infection with perfect accuracy, but a joint decision was made between the patient and the surgeon/proceduralist to proceed at this time with the scheduled surgery/procedure as indicated on the consent form.
--- NOTE | 2022-10-30 11:58 | PCM.DC.SUM ---
Providers Date of Admission: 10/26/22 Date of Discharge: 10/30/22 Primary Care Physician: Dr. Han Conn MD Consultations 10/26/22 13:35 Consult: Cardiology Routine Consulting Provider: Tabby Cruz Reason for Consult: elevated troponin EMERGENT Consult: No MD Notified: Yes Date Notified: 10/26/22 Time Notified: 17:00 Method of Notification: Verbal Comments:: WILL SEE IN MORNING Reason For Visit: ACUTE HYPOXIA RESPIRATORY FAILURE Diagnosis Discharge Diagnosis (1) NSTEMI (non-ST elevated myocardial infarction): Status: Acute Code(s): I21.4 - Non-ST elevation (NSTEMI) myocardial infarction (2) CAD (coronary artery disease): Status: Acute Code(s): I25.10 - Atherosclerotic heart disease of [place] coronary artery without angina pectoris (3) Cardiomyopathy: Status: Acute Code(s): I42.9 - Cardiomyopathy, unspecified (4) Acute CHF: Status: Acute Code(s): I50.9 - Heart failure, unspecified (5) Dyslipidemia: Status: Acute Code(s): E78.5 - Hyperlipidemia, unspecified (6) HTN (hypertension): Status: Chronic Code(s): I10 - Essential (primary) hypertension (7) PAD (peripheral artery disease): Status: Acute Code(s): I73.9 - Peripheral vascular disease, unspecified (8) CVA (cerebral vascular accident): Status: Acute Code(s): I63.9 - Cerebral infarction, unspecified Medications at Discharge Home Medications digestive enzymes 1 tab PO DAILY supplement 10/26/22 levothyroxine 88 mcg tablet 88 mcg PO DAILY thyroid 10/26/22 lisinopril 5 mg tablet 5 mg PO DAILY thyroid 10/26/22 omeprazole 20 mg capsule,delayed release 20 mg PO DAILY heartburn 10/26/22 oxybutynin chloride 5 mg tablet,extended release 24 hr 5 mg PO DAILY Check with primary doctor 10/26/22 acetaminophen 325 mg tablet (Tylenol) 650 mg PO Q6H PRN PRN Pain 1-10 Or Fever>100.7 #0 tabs 10/30/22 aspirin 81 mg tablet,delayed release 81 mg PO DAILY@0800 #0 tabs 10/30/22 atorvastatin 40 mg tablet 40 mg PO QHS #0 tabs 10/30/22 carvedilol 6.25 mg tablet 6.25 mg PO BID #0 tabs 10/30/22 clopidogrel 75 mg tablet 75 mg PO DAILY #0 tabs 10/30/22 empagliflozin 10 mg tablet (Jardiance) 10 mg PO DAILY #30 tabs 10/30/22 furosemide 40 mg tablet 40 mg PO BID #0 tabs 10/30/22 potassium chloride 20 mEq tablet,extended release(part/cryst) (Klor-Con M) 20 meq PO DAILYCM #0 tabs 10/30/22 spironolactone 25 mg tablet 12.5 mg PO DAILY #0 tabs 10/30/22 Hospital Course Procedures 2-D Echocardiogram, Cardiac catheterization, EKG and - (CT of the head/CTA of the head and neck) Summary of Care Provided Minutes Spent on Discharge: 45 Hospital Course: Mrs. Berry is an 82-year-old white female who presented to the emergency department was [facility] on 10/26/2022 with a chief complaint of shortness of breath. Evidently on of last week she had gone outside and was shoveling some snow but had to stop secondary to worsening shortness of breath and what she described as tightness across her chest from shoulder to shoulder. She stated she went back in and took a couple of aspirin and sat down and her symptoms resolved. She had no recurrent chest pain since that point time but had intermittent shortness of breath and woke up on the morning of admission from sleep acutely short of breath. Upon presentation she was in respiratory distress and placed emergently on BiPAP. She had no known cardiac history but does have a history of diabetes, hypertension, and hyperlipidemia. Patient also has remote use of excessive tobacco abuse but has since quit. She denied any associated fever, chills, nausea, vomiting, diarrhea, constipation, upper respiratory symptoms, tingling, numbness, or weakness. Vital signs at the time of presentation showed a temperature of 97.5, heart rate 99, blood pressure was 130/91, respiratory rate was 16 and her sat was 92% on 5 L nasal cannula.? CBC was obtained and identified only a leukocytosis with a white count of 14.8 however no shift was present and I suspect this is reactive.? Her initial chemistry panel showed normal electrolytes and renal function but did have an elevated glucose at 261.? Her lactic acid was elevated at 4.0.? Her initial troponin was 292.? Her BNP was 1582.5.? An ABG was obtained and she was found of a pH of 7.19 with a PCO2 of 58.7 and a PO2 of 129 on 5 L nasal cannula.? At that time she was placed on BiPAP.? Her chest x-ray was consistent with moderate congestive heart failure and her EKG showed sinus tachycardia with a left anterior fascicular block and inverted T waves in the lateral leads but no ST changes consistent with acute ischemia. She was admitted to the ICU secondary to respiratory distress and placed on a Lasix drip. An echocardiogram was obtained and demonstrated an ejection fraction of 20% with only the basal portion of the LV moving, stage II diastolic dysfunction, moderately enlarged left atrium, and severe pulmonary artery hypertension. She was placed on a beta-sergio and continued on her lisinopril. Her cardiac enzymes trended up and she was therefore taken for cardiac catheterization on the afternoon of 10/28/2022. Cardiac catheterization showed severely calcific nonobstructive coronary artery disease. She was started on Plavix and aspirin and based on her lipid profile her atorvastatin was increased from 20 to 40 mg. Later that day and through the evening she developed some confusion and complained of difficulty utilizing her phone. We obtained a CT of her head on the morning of 10/29/2022 which demonstrated findings consistent with acute left infarct of the occipital lobe and portions of the left cerebellum with no acute hemorrhage or midline shift. She was already maintained on Plavix, aspirin, atorvastatin as well as blood pressure medication. We obtained a CTA of her head and neck which had significant peripheral vascular disease including subclavian stenosis on the left side. She did have marked blood pressure differences between the left and right and we have instructed her to have people take her blood pressure on the right side rather than the left that she will read falsely low on the left side. She voiced understanding and the daughter is at the bedside. Unfortunately there were no lesions that were amenable to any other therapy other than medical therapy on the CTA. She did have some 57% right carotid artery stenosis and we will have her follow-up with outpatient vascular for her disease. Per discussion with the radiologist her disease is fairly severely calcific and ragged looking and felt any aggressive intervention would cause dissection. The results were discussed with family both with regards to her cardiac issues as well as her stroke. As a result of the stroke she had some mild memory issues as well as a right upper quadrant bilateral quadrantanopsia. She was evaluated by physical and Occupational Therapy and they recommended skilled rehab at discharge. Functionally she was living alone prior to admission with no issues. Medications added at discharge were Plavix, aspirin, Coreg, Aldactone and her metformin was discontinued and we added Jardiance. She was maintained on her lisinopril and all other medications. She was discharged to rehab in stable condition on 10/30/2022. 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 Right carotid artery stenosis Hypertension DM-2 Hypothyroidism Hyperlipidemia Urinary incontinence History of tobacco abuse History of alcohol abuse Physical Exam Const alert, oriented x3, no apparent distress and well nourished Constitutional Narrative: Elderly white female sitting up in a chair at the bedside currently on room air, appears comfortable, daughter is at bedside General Appearance: cooperative, comfortable, well kempt and well developed Orientation / Consciousness: awake, oriented to person, oriented to place and oriented to time Exam Limitations: no limitations Nutritional Appearance: overweight HEENT normocephalic, head/scalp atraumatic and moist oral mucous membranes HEENT Narrative: Significant hearing loss, dentition is fair for age, Mallampati is 2-3, no thrush Eyes PERRL, EOMs intact bilaterally and conjunctivae normal Eyes Narrative: No scleral icterus Neck no lymphadenopathy, supple, no JVD and no carotid bruits Neck Narrative: trachea midline, no thyroid enlargement Resp normal respiratory effort, no retractions, no use of accessory muscles and clear to auscultation bilaterally Resp Narrative: Diminished but clear Auscultation: Negative for crackles, rhonchi or wheezes Cardio regular rate, regular rhythm, S1 normal heart sound, S2 normal heart sound, no murmurs, no rub, no gallops, no clicks and no JVD GI normal to inspection, nondistended, normoactive bowel sounds, soft to palpation and non-tender Extremity no clubbing, cyanosis or edema Extremity Narrative: 2+ pedal pulses Skin no rashes or lesions noted, no wounds, skin turgor normal, no jaundice, no petechiae and no mottling Neuro oriented x3, CN's II-XII intact bilaterally, moves all extremities and no focal motor deficits Neuro Narrative: Patient with bilateral right upper quadrant quadrantanopia all other cranial nerves appear intact Speech: speech normal Psych affect normal Psych Narrative: Very pleasant and appropriately interactive Weight / BMI Weight Weight: 80.1 kg Body Mass Index (BMI) 28.3 ABG / Lab / Microbiology Data Result Diagrams: 10/30/22 05:00 10/30/22 05:00 Laboratory: Laboratory Results - last 24 hr 10/29/22 22:06: POC Glucose 150 H 10/30/22 05:00: Sodium 139, Potassium 4.0, Chloride 106, Carbon Dioxide 28.0, Anion Gap 5, BUN 10, Creatinine 0.67, Estim Creat Clear Calc 37.68, Est GFR (MDRD) Af Amer 109, Est GFR (MDRD) Non-Af 90, BUN/Creatinine Ratio 15.0, Glucose 146 H, Calcium 8.4 L, Magnesium 1.7, Triglycerides 96, Cholesterol 128, LDL Cholesterol 51, VLDL Cholesterol 19, HDL Cholesterol 58 10/30/22 05:00: WBC 6.7, RBC 3.71 L, Hgb 11.3 L, Hct 35.2 L, MCV 94.9, MCH 30.5, MCHC 32.1, RDW Std Deviation 47.0 H, RDW Coeff of [place] 13.5, Plt Count 217, MPV 11.1, Immature Gran % (Auto) 0.300, Neut % (Auto) 47.1, Lymph % (Auto) 40.6, [place] % (Auto) 7.2, Eos % (Auto) 3.6, Baso % (Auto) 1.2 H, Absolute Neuts (auto) 3.1, Absolute Lymphs (auto) 2.71, Nucleated RBC % 0 Microbiology: Microbiology 10/26/22 09:05 Blood Culture (Wb) #2 - Anticubital Left Blood Culture - Preliminary No growth in 48 hours. 10/26/22 07:45 Blood Culture (Wb) - Anticubital Left Blood Culture - Preliminary No growth in 48 hours. 10/26/22 07:40 Nasal Secretion SARS-CoV-2 & FLU Antigen (Rapid) - Final Radiography Diagnostic Testing: Radiology Impression Brain CT 10/29/22 10:40 IMPRESSION: 1. Findings concerning for acute infarct in the left occipital lobe and portions of the left cerebellum. 2. No acute intracranial hemorrhage or significant midline shift. Findings were discussed with Dianna Carter, CARPET LOOM FIXER at 11:35 AM on 10/29/[address] WAGONER. Electronically Signed: Wilton Wagoner, at 11:59 EST , ADDENDUM: 10/29/22 1251 IMPRESSION: 1. Findings concerning for acute infarct in the left occipital lobe and portions of the left cerebellum. 2. No acute intracranial hemorrhage or significant midline shift. Findings were discussed with Dianna Carter CARPET LOOM FIXER at 11:35 AM on 10/29/[address] WAGONER. N.B. : The above Results were Read Back by Wilton Wagoner to , AA, and understanding confirmed on 10/29/2022 12:44:28 (ET). Electronically Signed: Wilton Wagoner, at 11:59 EST , Head/Neck CTA 10/30/22 08:24 IMPRESSION: 1. 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 2. No visible thromboembolic occlusion of the left PICA but distal thromboembolic event most likely occurred causing the infarctions in the left cerebellar hemisphere due to complete occlusion of the V1 and V2 segments of the left vertebral artery. 3. origin of the right posterior cerebral artery off the right internal carotid artery accounting for development absent right P1 segment. 4. No other significant vaso-occlusive disease of the anterior and posterior intracranial circulation. 5. 57% stenosis of the right proximal internal carotid artery due to calcified plaques. 6. High-grade stenosis of the right external carotid artery due to noncalcified plaque. 7. Widely patent left cervical internal carotid artery. 8. High-grade stenosis of the left external carotid artery origin due to heavily calcified plaques. 9. High-grade stenosis if not complete occlusion of the left subclavian artery proximal to the occluded left vertebral artery due to heavily calcified plaques. Contrast opacification distal to the near-complete occlusion if not occluded left subclavian artery is most likely retrograde collateral flow coming from the right thyrocervical trunk to the left thyrocervical trunk and from the right occipital artery to the left occipital artery and retrograde collateral flow to the ascending cervical segment of the left subclavian artery. 10. Normal aortic arch and origins of the great vessels. N.B. : The above Results were Read Back by Evan Clark MD to MADY EPREZ MD, and understanding confirmed on 10/30/2022 09:56:12 (ET). Electronically Signed: Evan Clark MD at 10:07 EST , ADDENDUM: 10/30/22 1014 IMPRESSION: 1. 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 2. No visible thromboembolic occlusion of the left PICA but distal thromboembolic event most likely occurred causing the infarctions in the left cerebellar hemisphere due to complete occlusion of the V1 and V2 segments of the left vertebral artery. 3. origin of the right posterior cerebral artery off the right internal carotid artery accounting for development absent right P1 segment. 4. No other significant vaso-occlusive disease of the anterior and posterior intracranial circulation. 5. 57% stenosis of the right proximal internal carotid artery due to calcified plaques. 6. High-grade stenosis of the right external carotid artery due to noncalcified plaque. 7. Widely patent left cervical internal carotid artery. 8. High-grade stenosis of the left external carotid artery origin due to heavily calcified plaques. 9. High-grade stenosis if not complete occlusion of the left subclavian artery proximal to the occluded left vertebral artery due to heavily calcified plaques. Contrast opacification distal to the near-complete occlusion if not occluded left subclavian artery is most likely retrograde collateral flow coming from the right thyrocervical trunk to the left thyrocervical trunk and from the right occipital artery to the left occipital artery and retrograde collateral flow to the ascending cervical segment of the left subclavian artery. 10. Normal aortic arch and origins of the great vessels. N.B. : The above Results were Read Back by Evan Clark MD to MADY PEREZ MD, and understanding confirmed on 10/30/2022 09:56:12 (ET). Electronically Signed: Evan Clark MD at 10:07 EST , Meaningful Use Info Meaningful Use Diagnoses (Choose all that apply): CHF CHF KIKA/ARB ordered at discharge?: Yes Documented LVEF (%): 20 CVA Therapy Assessed for PT,OT and/or ST?: Yes Ischemic Stroke Antithrombotic order at d/c?: Yes Dx of Atrial fib/flutter?: No Anticoagulant at discharge?: No Reason anticoagulant not ordered: Procedure not Indicated Statins at discharge?: Yes Primary Dx Acute Ischemic CVA?: No IV tPA ordered during stay?: No Reason IV t-PA not ordered: Treatment not Indicated Discharge Plan Admission Admit Date/Time: 10/26/22 09:20 Primary Reason for Your Visit: Shortness of breath Attending Provider: Mady Perez Primary Care Provider: Han Conn Consulting Providers: Tabby Cruz Instructions Additional Instructions / Restrictions: 1. We do suspect you have obstructive sleep apnea. I would recommend asking your primary care physician to refer you for a sleep study as an outpatient Discharge Orders/Prescriptions Prescriptions: New furosemide 40 mg Tablet 40 mg PO BID Qty: 0 0RF atorvastatin 40 mg Tablet 40 mg PO QHS Qty: 0 0RF acetaminophen [Tylenol] 325 mg Tablet 650 mg PO Q6H PRN PRN (Reason: Pain 1-10 Or Fever>100.7) Qty: 0 0RF carvedilol 6.25 mg Tablet 6.25 mg PO BID Qty: 0 0RF clopidogrel 75 mg Tablet 75 mg PO DAILY Qty: 0 0RF aspirin 81 mg Tablet,Delayed Release (Dr/Ec) 81 mg PO DAILY@0800 Qty: 0 0RF spironolactone 25 mg Tablet 12.5 mg PO DAILY Qty: 0 0RF potassium chloride [Klor-Con M20] 20 mEq Tablet,Er Particles/Crystals 20 meq PO DAILYCM Qty: 0 0RF Jardiance 10 mg tablet 10 mg PO DAILY Qty: 30 0RF Continued levothyroxine 88 mcg tablet 88 mcg PO DAILY Label Comments: Take 1 tablet by mouth once daily. Take on empty stomach. For Thyroid lisinopril 5 mg tablet 5 mg PO DAILY Label Comments: Take 1 tablet by mouth once daily. To prevent kidney failure digestive enzymes Tablet 1 tab PO DAILY oxybutynin chloride 5 mg Tablet Extended Release 24hr 5 mg PO DAILY omeprazole 20 mg Capsule,Delayed Release(Dr/Ec) 20 mg PO DAILY Discontinued metformin 500 mg tablet 500 mg PO DAILY Label Comments: TAKE 1 TABLET BY MOUTH DAILY WITH BREAKFAST atorvastatin 20 mg tablet 20 mg PO DAILY Label Comments: TAKE 1 TABLET BY MOUTH ONCE DAILY Referrals / Follow Up: Tabby Cruz MD [Med Staff - Active Staff] - Within 2 Weeks Asael Kamara MD [Med Staff - Active Staff] - Within 2 Weeks Han Conn MD [Primary Care Provider] - Within 1 Month Disposition Disposition (needs filled in before D/C Order can be placed): Inpatient Rehab Unit/Facility Charges/Coding Visit Charges Inpatient E&M: 71047 Disch Hosp
[2022-10-30] MEDS: Insulin Lispro 100 UNIT/ML INSULN.PEN SC (12:18)
[2022-10-30 12:31] LABS: Bedside Glucose 165 mg/dL (74-106)
--- NOTE | 2022-10-30 12:48 | CASEMGMT ---
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 SW requested permission to speak to patient with family present, patient agreed. SW provided education regarding correlation between strokes and depression and inquired about assisting the patient in completing a PHQ9 screening. Patient stated she was unable to read the questions and agreed to SW assisting her in completing the screening. Patient explained she has been struggling with staying asleep, however, when she explained when she wakes up to use the restroom she chooses to stay awake. Patient also reported having some issues with concentrating but feels it is appropriate for this stage of her life. SW inquired about patient's support system. Patient explained she is supported by friends and family. Patient's daughter stated the patient's Son in Law is a therapist so they have resources if patient would need counseling services and denied needing a list of local counseling agencies. PHQ9 Score 2. Ronel MCINTYRE, VINAY
== END 2022-10-30 12:50 | DRG 280 ==
LOC: ED 09:06 → PCU 10:07 → ICU 10-27 08:07 → PCU 10-27 11:19
PROVIDERS: Admitting Provider Internal Medicine; Emergency Provider Emergency Medicine; PCP Family Medicine; Visit Provider Internal Medicine
DX: I11.0 Hypertensive heart disease with heart failure (principal); I21.4 Non-ST elevation (NSTEMI) myocardial infarction; J96.01 Acute respiratory failure with hypoxia; I63.432 Cerebral infarction due to embolism of left posterior cerebral artery; J96.02 Acute respiratory failure with hypercapnia; I50.21 Acute systolic (congestive) heart failure; I97.820 Postprocedural cerebrovascular infarction following cardiac surgery; I42.9 Cardiomyopathy, unspecified; E11.51 Type 2 diabetes mellitus with diabetic peripheral angiopathy without gangrene; E11.65 Type 2 diabetes mellitus with hyperglycemia; I27.20 Pulmonary hypertension, unspecified; F10.21 Alcohol dependence, in remission; E03.9 Hypothyroidism, unspecified; E78.5 Hyperlipidemia, unspecified; K21.9 Gastro-esophageal reflux disease without esophagitis; F41.9 Anxiety disorder, unspecified; I35.1 Nonrheumatic aortic (valve) insufficiency; I25.10 Atherosclerotic heart disease of native coronary artery without angina pectoris; R32 Unspecified urinary incontinence; R29.702 NIHSS score 2; Y84.0 Cardiac catheterization as the cause of abnormal reaction of the patient, or of later complication, without mention of misadventure at the time of the procedure; Y92.239 Unspecified place in hospital as the place of occurrence of the external cause; Z66 Do not resuscitate; Z20.822 Contact with and (suspected) exposure to COVID-19; Z79.84 Long term (current) use of oral hypoglycemic drugs; Z79.890 Hormone replacement therapy; Z79.899 Other long term (current) drug therapy; Z87.891 Personal history of nicotine dependence
CPT/HCPCS: 36415; 36600; 70450; 70496; 70498; 71045; 80048; 80053; 80061; 82803; 82962; 83036; 83605; 83735; 83880; 84100; 84443; 84484; 85025; 85610; 85730; 87040; 87428; 92523; 92610; 93005; 93306; 93454; 93880; 94002; 94003; 94640; 94660; 94762; 97110; 97162; 97166; 97530; 97535; 99285; J7030; J7040; J7050; Q9957; Q9967; A4216; C1769; C1894; C8929; J1940

== ENCOUNTER 2022-10-30 13:12 | Inpatient (IN) | payer MEDICARE, OTHER, SELFPAY ==
[2022-10-30 13:27] VITALS: BP 127/74; PULSE 75; RESP 16; TEMP 37; O2SAT 96
--- NOTE | 2022-10-30 14:33 | HP.PCM_ITS ---
HPI - General General Date of Admission: 10/30/22 Date of Service: 10/31/22 Chief Complaint: Here for 3 hours daily rehabilitation. [facility] Narrative 10/26/2022 MIRIAM DURHAM, is a 82 Female who presents to [facility] Emergency Department with shortness of breath. 10/26/2022 EKG sinus tachycardia with occasional premature ventricular contractions, left axis deviation, ST&T wave abnormality, consider anterolateral ischemia. Shortness of breath, worsening x 3 days, could not breathe. Aerosol, ABG, BiPAP for acute respiratory failure with hypoxia. Lasix 40mg IV given for suspected heart failure. Vital signs improved with BiPAP. Chest X-ray consistent with congestive heart failure. Elevated troponin, Elevated WBC, Elevated Lactic acid. 10/26/2022 Echo EF 20%, consider Takotsubo syndrome. Stage 2 diastolic dysfunction. Severe pulmonary hypertension. 10/26/2022 Admit to Hospital. BiPAP, Lasix drip, Fluid restriction for congestive heart failure. Cycle cardiac enzymes for elevated troponin. 10/27/2022 Feeling better, less short of breath. Low dose carvedilol, spironolactone added. 10/28/2022 Dr. Cruz performed left heart catheterization showed severely calcified non-obstructive coronary artery disease. Risk factor modification recommended. 10/28/2022 Feels much better. Oxygen 2 liters per nasal cannula, Lasix IV changed to Lasix PO. 10/29/[address] brain showed left occipital, left cerebellar stroke. Already on aspirin, plavix, statin. PT/OT recommended. Change Metformin to Jardiance for heart failure with reduced ejection fraction. 10/30/2022 Admit to for 3 hours daily rehabilitation, strengthening, prior to disposition determination. [facility] Medical History (Updated 10/30/22 @ 14:[address] Chris Izquierdo MD) Acute respiratory failure with hypoxia Debility Diabetes mellitus Heart failure with reduced ejection fraction Hyperlipidemia Hypertension Hypothyroidism NSTEMI (non-ST elevated myocardial infarction) Stroke Takotsubo syndrome Home Medications levothyroxine 50 mcg tablet 88 mcg PO DAILY THYROID 04/01/14 [History Last Taken 11/26/19] metformin 500 mg tablet 500 mg PO DAILY DIABETES 04/01/14 [History Last Taken 11/07/17 17:00 1] imggrufk-qks-tzbfq acid 0.4 mg-lycopene 300 mcg-lutein 250 mcg tablet (Centrum Silver) 1 ea PO DAILY VITAMIN 04/01/14 [History Last Taken 11/07/17 08:00 1] L.acidoph, paracasei,B. lactis 10 billion cell capsule 1 ea PO DAILY SUPPLEMENT 10/21/17 [History Last Taken 11/07/17 08:00 1] atorvastatin 20 mg tablet 40 mg PO QHS CHOLESTEROL 10/21/17 [History Last Taken 11/07/17 22:00 1] lisinopril 5 mg tablet 5 mg PO DAILY BP 10/21/17 [History Last Taken 11/26/19] loperamide 2 mg capsule 2 mg PO DAILY PRN Diarrhea 10/21/17 [History Last Taken Unknown] omeprazole 20 mg tablet,delayed release 20 mg PO DAILY GERD 11/09/19 [History Last Taken 11/26/19] oxybutynin chloride 5 mg tablet 5 mg PO QHS URINATION 11/09/19 [History Last Taken Unknown] aspirin 81 mg chewable tablet 81 mg PO BID ##60 11/27/19 [Rx Last Taken Unknown] sennosides 8.6 mg-docusate sodium 50 mg tablet 2 tab PO BID #30 tabs 11/27/19 [Rx Last Taken Unknown] acetaminophen 500 mg tablet 650 mg PO Q6H PRN PRN Pain 1-10 10/30/22 [History La st Taken Unknown] aspirin 81 mg capsule,delayed release 81 mg PO DAILY Heart health 10/30/22 [History Last Taken Unknown] carvedilol 6.25 mg tablet (Coreg) 6.25 mg PO BID BP 10/30/22 [History Last Taken Unknown] clopidogrel 75 mg tablet 75 mg PO DAILY Blood thinner 10/30/22 [History Last Taken Unknown] empagliflozin 10 mg tablet (Jardiance) 10 mg PO DAILY DM 10/30/22 [History Last Taken Unknown] furosemide 40 mg tablet (Lasix) 40 mg PO BID Fluid retention 10/30/22 [History Last Taken Unknown] potassium 20 mg chewable tablet 20 mg PO DAILY Supplement 10/30/22 [History Last Taken Unknown] spironolactone 25 mg tablet 12.5 mg PO DAILY Fluid retention 10/30/22 [History Last Taken Unknown] Allergy/AdvReac Type Severity Reaction Status Date / Time Penicillins AdvReac Diarrhea Verified 11/26/19 05:56 Surgical History (Updated 10/30/22 @ 14:[address] Chris Izquierdo MD) History of knee replacement Social History (Updated 10/30/22 @ 14:[address] Chris Izquierdo MD) household members: none Smoking Status: Former smoker alcohol intake: former substance use type: does not use ROS Constitutional Constitutional: Denies chills, fever(s) or weight gain Eyes Eyes: Reports change in vision right ENT HEENT: Denies headache(s), nasal congestion or nasal discharge Cardiovascular Cardiovascular: Denies chest pain or palpitations Respiratory/Chest Respiratory/Chest: Reports shortness of breath with exertion; Denies cough or excessive phlegm production Gastrointestinal Gastrointestinal: Denies abdominal pain, nausea or vomiting Genitourinary Genitourinary: Denies dysuria Musculoskeletal Musculoskeletal: Denies joint pain or joint swelling Integumentary Integumentary: Denies rash or wounds Neurologic Neurologic: Denies focal weakness, numbness or tingling Psychiatric Psychiatric: Denies anxiety, auditory hallucinations, depression, homicidal ideation or suicidal ideation Vital Signs Vital Signs Vital Signs: 10/30/22 13:27 Temperature 98.6 F Temperature Source Temporal Pulse Rate 75 Respiratory Rate 16 Blood Pressure 127/74 H Blood Pressure Mean 91 Blood Pressure Source Monitor Blood Pressure Position Semi-Fowlers Blood Pressure Location Right Arm Pulse Ox 96 Oxygen Delivery Method Room Air Weight Weight: 79.379 kg Indicators for Scoring Admitted with or Primary Diagnosis of CVA/Stroke: Yes Hx of CVA/Stroke: Yes Modified Hettinger Score MRS Score at time of Evaluation: 2-Slight disability NIHSS NIHSS 1a. Level of Consciousness: Alert; keenly responsive 1b. LOC Questions: Answers BOTH questions correctly. 1c. LOC Commands: Performs both tasks correctly. 2. Best Gaze: Normal 3. Visual: Partial hemianopia 4. Facial Palsy: Normal symmetrical movements 5a. Left Arm: No drift; arm holds 90 (or 45) degrees for full 10 seconds 5b. Right Arm: No drift; arm holds 90 (or 45) degrees for full 10 seconds 6a. Left Leg: No drift; leg holds 30-degree position for full 5 seconds 6b. Right Leg: No drift; leg holds 30-degree position for full 5 seconds 7. Limb Ataxia: Absent 8. Sensory: Normal; no sensory loss 9. Best Language: No aphasia; normal 10. Dysarthria: Normal 11. Extinction and Inattention: No abnormality Total: 1 Physical Exam Const alert General Appearance: cooperative HEENT normocephalic Eyes PERRL and EOMs intact bilaterally Neck supple, no JVD and no carotid bruits Resp normal respiratory effort, normal air movement and clear to auscultation bilaterally Cardio regular rate and regular rhythm GI normal to inspection, nondistended, normoactive bowel sounds, non-tender and non-distended Extremity normal capillary refill General Extremity: Negative for edema Skin no rashes or lesions noted General Skin Exam: no breakdown Neuro Neuro Narrative: Right sided vision deficit. Psych affect normal Appearance: appropriate Results Lab / Micro Data Result Diagrams: 10/31/22 07:50 10/31/22 07:50 Assessment & Plan Assessment/Plan (1) Debility: (2) Stroke: (3) Hypothyroidism: (4) Hyperlipidemia: (5) Hypertension: (6) Diabetes mellitus: (7) NSTEMI (non-ST elevated myocardial infarction): (8) Takotsubo syndrome: (9) Heart failure with reduced ejection fraction: (10) Acute respiratory failure with hypoxia: PLAN: Plan 82 year old female with below past medical history hospitalized for acute respiratory failure with hypoxia, NSTEMI, heart failure with reduced ejection fracture secondary to takotsubo syndrome, complicated by left sided stroke, admitted to for 3 hours daily rehabilitation, strengthening, prior to discharge home alone. * Debility - PT/OT/ST. * Pain - Tylenol 1000mg q6h prn pain (1-10). * Bowel - Senna/colace 1 tablet bid, Dulcolax 10mg pr x 1 prn, MOM 30ml po x 1 prn. * Stroke - Aspirin 81mg daily, Plavix 75mg daily. * Hyperlipidemia - Atorvastatin 40mg qhs. * Heart failure with reduced ejection fraction - Coreg 6.125mg bid, Lisinopril 5mg daily, Jardiance 10mg daily, Furosemide 40mg bid, Spironolactone 12.5mg daily. * Diabetes Mellitus II - Jardiance 10mg daily. * GI prophylaxis - Lactobacillus 1 tablet daily. * Hypothyroidism - Levothyroxine 88mcg daily. * Overactive bladder - Oxybutynin 5mg qhs. * GERD - Pantoprazole 20mg daily. * Hypokalemia - KCL ER 20meq daily. * Insomnia/anxiety - Lorazepam 0.5mg qhs prn.
[2022-10-30] MEDS: Acetaminophen 500 MG Tablet 1000 MG PO (15:32)
[2022-10-30] MEDS: 0.9% Saline Lock 10 ML Syringe IV (15:43)
[2022-10-30 16:25] VITALS: PULSE 77; O2SAT 97
[2022-10-30] MEDS: Furosemide 40 MG Tablet PO (17:24)
[2022-10-30 17:26] LABS: Bedside Glucose 118 mg/dL (74-106)
[2022-10-30 19:00] VITALS: BP 124/74; PULSE 77; RESP 17; TEMP 37; O2SAT 96
[2022-10-30 20:15] VITALS: O2SAT 96
[2022-10-30] MEDS: Oxybutynin 5 MG Tablet PO (21:35)
[2022-10-30] MEDS: Carvedilol 6.25 MG Tablet PO (21:35)
[2022-10-30] MEDS: Atorvastatin Calcium 40 MG Tablet PO (21:35)
--- NOTE | 2022-10-30 21:39 | NURSING ---
In to give pt meds, pt states her eyes feels better now that she was resting on her side. Denies pain, will continue to monitor.
--- NOTE | 2022-10-30 22:25 | NURSING ---
Pt called out, states she just can't go to sleep and is feeling anxious, states they had to give nme something the other to help me calm down and relax. Records from ICU show pt had Ativan at HS on 10/28. Pt refused offer of warm milk, hot tea to help her relax. Dr Celis paged to request Ativan.
[2022-10-30] MEDS: LORazepam 0.5 MG Tablet PO (22:52)
[2022-10-31] MEDS: Levothyroxine 88 MCG Tablet PO (05:47)
[2022-10-31] MEDS: Acetaminophen 500 MG Tablet 1000 MG PO ×2 (05:47→14:55)
[2022-10-31 07:01] LABS: Bedside Glucose 147 mg/dL (74-106)
[2022-10-31 07:30] VITALS: BP 127/76; PULSE 71; RESP 18; TEMP 37; O2SAT 97
[2022-10-31] MEDS: Aspirin E.C. 81 MG Tablet PO (07:44)
[2022-10-31] MEDS: Senna/Docusate Sodium 1 Tablet PO (07:44)
[2022-10-31] MEDS: Furosemide 40 MG Tablet PO ×2 (07:45→16:55)
[2022-10-31] MEDS: Pantoprazole Sodium 20 MG Tablet PO (07:45)
[2022-10-31] MEDS: Lisinopril 5 MG Tablet PO (07:45)
[2022-10-31] MEDS: Clopidogrel Bisulfate 75 MG Tablet PO (07:45)
[2022-10-31] MEDS: Spironolactone 25 MG Tablet 12.5 MG PO (07:45)
[2022-10-31] MEDS: Carvedilol 6.25 MG Tablet PO ×2 (07:46→16:55)
[2022-10-31] MEDS: Empagliflozin 10 MG Tablet PO (07:46)
[2022-10-31 08:07] LABS: Hematocrit 39.5 % (37-47); Hemoglobin 13.3 g/dL (12.0-15.0); Mean Corp Hgb Conc 33.7 g/dL (32-36); Mean Corpuscular Hgb 31.9 pg (27.0-32.0); Mean Corpuscular Volume 94.7 fL (81-99); Mean Platelet Vol. 10.5 fl (6.2-12.0); Platelet Count 229 K/mm3 (150-450); RBC Distribution Width CV 13.4 % (11.6-14.6); RBC Distribution Width SD 46.9 fl (35.1-43.9); Red Blood Count 4.17 M/mm3 (4.2-5.4)
[2022-10-31 08:25] LABS: AST(SGOT) 41 U/L (15-37); Alanine Aminotransfer ALT/SGPT 35 U/L (13-56); Albumin, Serum 3.4 g/dL (3.2-5.0); Alkaline Phosphatase 56 U/L (45-117); Anion Gap 6 (5-15); BUN 12 mg/dL (7-18); Calcium,Total 8.9 mg/dL (8.5-10.1); Chloride 103 mmol/L (98-107); EST Glomerular Filtration Rate 73 mL/min (>60); Est Glom Filt Rate - Afr Amer 88 mL/min (>60); Globulin 3.5 g/dL (2.2-4.2); Glucose 181 mg/dL (74-106); Magnesium 1.9 mg/dL (1.6-2.6); Phosphorus 3.6 mg/dL (2.5-4.9); Potassium 4.2 mmol/L (3.5-5.1); Protein, Total 6.9 g/dL (6.4-8.2); Sodium Level 136 mmol/L (136-145)
--- NOTE | 2022-10-31 08:26 | REHABEVAL_ITS ---
Admission Information Primary Diagnosis:: Left occipital/cerebellar stroke, NSTEMI, HFrEF, Takotsubo syndrome. Status Changes from Prescreening?: No changes Identified Actual Problem List:: Alteration in Sleep, Mobility Impaired, Self Care Deficit, Know.Dfct/Disease Process, Alteration/ Air Exchange and Fluid Overload r/t CHF Potential Problem List:: DVT, Bleeding, Infection, UTI, Aspiration, Falls, Skin Integrity and Depression Risk of Complications DVT: PEGGY Santos Bleeding: Monitor Lab Values, Nursing to Teach Precautions for anti-coagulation therapy., Wound, if applicable, to be assessed every shift. and Stroke patients assessed for lethargy or change in status. Infection: Clinical Staff to Monitor for S/S of infection: and S/S of infection include fever, redness, warmth, etc. Urinary Tract Infection: Monitor for frequency, burning, discomfort, or incontinence. and Nursing will obtain urine sample for urinalysis and C&S when ordered. Aspiration: Clinical staff will monitor for coughing, drooling, congestion., Speech will evaluate swallowing and dsyphasia. and Nursing will monitor patient swallowing during meals. Falls: Patient will be evaluated for Fall Precautions and Patient will be placed on Fall Precautions as indicated per protocol. Skin Breakdown: Nursing will assess skin daily using assessment tool. and Nursing will place on Skin Breakdown Precautions as indicated. Pain: Clinical staff will assess patient's pain level per protocol., Medications will be given, if needed, and the pain level reassessed. and Other methods: Massage, distraction, decrease stimulus, etc. used PRN. Plan of Care Patient requires physician specializing in physical medicine and rehab oversight to provide close medical supervision of rehab issues including: Pain Management, Sleep Problems, Bowel and Bladder, Medical and co-morbidity Management, DVT prophylaxis, Rehabilitation Leadership and Coordination of treatment team Patient needs Physical Therapy: For a minimum of 1 hour and At least 5 out of 7 days Patient needs Physical Therapy to improve:: Mobility, Strengthening, Transfers, Stretching, ROM, Endurance, Gait and Balance Patient needs Occupational Therapy: For a minimum of 1 hour and At least 5 out of 7 days Patient needs Occupational Therapy to improve ADL's incl.: Eating, Grooming, Bathing, Dressing, Toileting, Toilet transfers, Community Reintegration, Higher functioning activities, Household tasks, Adaptive Equipment and Other activities as determined Patient requires speech therapy: For a minimum of 1 hour and At least 5 out of 7 days Patient requires speech therapy for: Swallowing, Cognition, Language Skills and Compensatory Strategies Patient requires 24/ Rehabilitation Nursing for: Pain Issues, Identifying and preventing risk factors, Monitoring and reporting current medical conditions, Assisting with ambulation, transfer, and all ADL's, Teaching patients about disease process and medications, Family teaching, Providing safe environment, Bowel and Bladder Issues, Skin integrity and Medication Management Patient needs Technician Automatic/ Case Management for: Discharge Planning, Arranging Home Equipment or Services and Family Interventions Patient needs Dietary and Nutrition Services for: Adequate Nutrition, Nutritional Supplements and Nutritional Education Goals Patient will remain: free from falls and or injury at time of discharge. Patient will perform bed mobility at: Standby Assist. Patient will complete transfers from bed to chair at: Standby Assist. Patient will ambulate: 100 feet and with standby assist Patient will complete upper body dressing at: Standby Assist. Patient will complete lower body dressing at: Standby Assist. Patient will complete toileting at: Standby Assist. Patient will perform bathing at: Standby Assist. Patient will complete grooming at: Standby Assist. Patient will complete home management skills at: Standby Assist. Patient will have pain level of: of 3 or less Patient's skin will: remain intact and free from infection. Patient will receive: adequate nutrition. Discharge Planning Pt Prognosis for Sig. Practical Improv. w/in Reasonable Time: Good Estimated Length of stay (days): 14 Anticipated D/C Destination: Home with Home Health Was Preadmission Assessment Accurate?: Yes
[2022-10-31 09:04] VITALS: O2SAT 95
[2022-10-31] MEDS: 0.9% Saline Lock 10 ML Syringe IV (14:55)
[2022-10-31 16:31] LABS: Bedside Glucose 161 mg/dL (74-106)
[2022-10-31 19:52] VITALS: BP 134/67; PULSE 68; RESP 16; TEMP 36.2; O2SAT 93
[2022-10-31 20:25] VITALS: O2SAT 93
[2022-10-31] MEDS: Atorvastatin Calcium 40 MG Tablet PO (20:32)
[2022-10-31] MEDS: Oxybutynin 5 MG Tablet PO (20:32)
[2022-11-01] MEDS: Levothyroxine 88 MCG Tablet PO (05:37)
[2022-11-01] MEDS: Acetaminophen 500 MG Tablet 1000 MG PO ×2 (06:11→16:07)
[2022-11-01 07:25] LABS: Bedside Glucose 145 mg/dL (74-106)
[2022-11-01 07:35] VITALS: BP 116/63; PULSE 68; RESP 18; TEMP 36.7; O2SAT 93
[2022-11-01 08:04] VITALS: O2SAT 93
[2022-11-01] MEDS: Furosemide 40 MG Tablet PO ×2 (08:06→17:52)
[2022-11-01] MEDS: Aspirin E.C. 81 MG Tablet PO (08:06)
[2022-11-01] MEDS: Pantoprazole Sodium 20 MG Tablet PO (08:06)
[2022-11-01] MEDS: Clopidogrel Bisulfate 75 MG Tablet PO (08:06)
[2022-11-01] MEDS: Carvedilol 6.25 MG Tablet PO ×2 (08:06→16:06)
[2022-11-01] MEDS: Spironolactone 25 MG Tablet 12.5 MG PO (08:07)
[2022-11-01] MEDS: Lisinopril 5 MG Tablet PO (08:08)
[2022-11-01] MEDS: Empagliflozin 10 MG Tablet PO (08:08)
[2022-11-01 16:06] LABS: Bedside Glucose 145 mg/dL (74-106)
[2022-11-01 21:08] VITALS: BP 160/80; PULSE 77; RESP 16; TEMP 36.9; O2SAT 97
[2022-11-01] MEDS: Oxybutynin 5 MG Tablet PO (21:11)
[2022-11-01] MEDS: Atorvastatin Calcium 40 MG Tablet PO (21:11)
[2022-11-01 22:00] VITALS: PULSE 82; RESP 16; O2SAT 95
[2022-11-02] MEDS: Acetaminophen 500 MG Tablet 1000 MG PO (01:18)
[2022-11-02] MEDS: Levothyroxine 88 MCG Tablet PO (06:06)
[2022-11-02] MEDS: 0.9% Saline Lock 10 ML Syringe IV (06:10)
[2022-11-02 06:40] LABS: Bedside Glucose 125 mg/dL (74-106)
[2022-11-02 07:18] VITALS: BP 140/71; PULSE 71; RESP 15; TEMP 36.2; O2SAT 97
[2022-11-02] MEDS: Clopidogrel Bisulfate 75 MG Tablet PO (07:32)
[2022-11-02] MEDS: Lisinopril 5 MG Tablet PO (07:32)
[2022-11-02] MEDS: Spironolactone 25 MG Tablet 12.5 MG PO (07:33)
[2022-11-02] MEDS: Aspirin E.C. 81 MG Tablet PO (07:33)
[2022-11-02] MEDS: Pantoprazole Sodium 20 MG Tablet PO (07:33)
[2022-11-02] MEDS: Carvedilol 6.25 MG Tablet PO ×2 (07:33→18:25)
[2022-11-02] MEDS: Furosemide 40 MG Tablet PO ×2 (07:34→18:25)
[2022-11-02] MEDS: Empagliflozin 10 MG Tablet PO (07:35)
--- NOTE | 2022-11-02 10:28 | PCM.PROGNOTE ---
Subjective Subjective Afebrile VSS Maintaining appropriate oxygen saturation on RA Oral intake is poor per the intake and output summary. Blood sugar record was reviewed. All blood sugars are under 200. Accu-Cheks are being done twice a day. Discussed with nursing - no problems that need addressed Reviewed the PT/OT/ST notes Medication list reviewed. H&P was reviewed. Aminata Berry is an 82-year-old female admitted to an [facility] on 10/26/2022 for acute respiratory failure with hypoxia due to acute CHF. she had no hx of heart disease. troponin was elevated and she was diagnosed with a NSTEMI. Echo at admission showed a 20% ejection fraction with stage II diastolic dysfunction, LAE, mild to moderate TR, moderate AI, mild MR and severe pulmonary hypertension. She was treated with BIPAP, Lasix infusion and fluid restriction. A cardiac cath was done on 10/29/22 and showed severely calcified nonobstructive coronary artery disease. That night she had acute confusion and loss of vision on the R. 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 There was complete occlusion of the L vertebral artery and high grade stenosis of the L subclavian proximal to the take off of the L vertebral artery. There was 50-60% stenosis of the R ICA and high grade stenosis of the R and L external carotid arteries. HGBA1C was 7.1 and the LDL was 51. She was discharged to acute rehab on ASA, Plavix, statin. She has no hx of AF but, she has LAE and a severe CM. Will need a 30 day event monitor as an OP. Viktoriya denies lightheadedness, vertigo, CP, SOB at rest, SOB with exertion, cough, nausea, vomiting, abd pain, diarrhea, constipation, dysuria, calf pain and ankle swelling. Complaints include persistent visual field cuts on the right side, a mild headache, slow though processing (can not remember how to use the cell phone) and some mild weakness on the R side of her body. she lives by herself but, she will be going to one of her dtr's homes at [place] from rehab. Objective Data Objective Data Vital Signs: Vital Signs Temp Pulse Resp BP Pulse Ox O2 Del Method 97.2 F L 71 15 140/71 H 97 Room Air 11/02/22 07:18 11/02/22 07:18 11/02/22 07:18 11/02/22 07:18 11/02/22 07:18 11/02/22 08:50 Oxygen Delivery Method Room Air Weight: 175 lb Intake & Output: Intake and Output for Last 24 Hours 10/31/22 11/01/22 11/02/22 23:59 23:59 23:59 Intake Total 1620 / 1620 950 / 950 740 / 740 Output Total 700 / 700 Balance 920 / 920 950 / 950 740 / 740 Lab / Micro Data Result Diagrams: 10/31/22 07:50 10/31/22 07:50 Labs: Laboratory Results - last 24 hr 11/01/22 15:41: POC Glucose 145 H 11/02/22 06:03: POC Glucose 125 H Physical Exam Const alert and oriented x3 General Appearance: cooperative HEENT normocephalic Neck supple Neck Narrative: + JVD sitting upright in the chair. General: trachea midline Resp normal respiratory effort and clear to auscultation bilaterally Auscultation: diminished lung sounds Cardio regular rate, regular rhythm, no rub and no gallops Cardio Narrative: No ectopy while I was listening to her. Distant heart sounds. GI normal to inspection, nondistended, normoactive bowel sounds, soft to palpation and non-tender Extremity no calf tenderness General Extremity: Negative for edema Skin General Skin Exam: no breakdown Rashes: no rashes Assessment & Plan Assessment/Plan (1) Debility: (2) Ischemic stroke: (3) NSTEMI (non-ST elevated myocardial infarction): (4) Heart failure with reduced ejection fraction: (5) Takotsubo syndrome: PLAN: suspected. (6) Diabetes mellitus, type 2: (7) Hypertension: (8) Hyperlipidemia: (9) Hypothyroidism: (10) Grade II diastolic dysfunction: (11) Left atrial enlargement: (12) Tricuspid regurgitation: (13) Aortic regurgitation: (14) Severe pulmonary hypertension: (15) Carotid stenosis: (16) Arteriosclerosis: (17) Stenosis of left subclavian artery: PLAN: Plan 1. Continue therapy 2. Will need to follow up with Dr. Ordonez post DC 3. Blood pressure is to goal. 4. Blood sugars are well controlled. Charges/Coding Visit Charges Inpatient E&M: 96159 Subs Hosp L2
[2022-11-02 16:40] LABS: Bedside Glucose 138 mg/dL (74-106)
[2022-11-02 19:51] VITALS: BP 124/60; PULSE 75; RESP 15; TEMP 36.9; O2SAT 92
[2022-11-02] MEDS: traZODone 50 MG Tablet PO (21:04)
[2022-11-02] MEDS: Atorvastatin Calcium 40 MG Tablet PO (21:04)
[2022-11-02] MEDS: Oxybutynin 5 MG Tablet PO (21:04)
[2022-11-02 22:00] VITALS: PULSE 79; RESP 16; O2SAT 96
[2022-11-03] MEDS: Levothyroxine 88 MCG Tablet PO (05:29)
[2022-11-03 07:05] LABS: Bedside Glucose 142 mg/dL (74-106)
[2022-11-03 08:01] VITALS: BP 129/71; PULSE 71; RESP 16; TEMP 36.6; O2SAT 93
[2022-11-03] MEDS: Aspirin E.C. 81 MG Tablet PO (08:25)
[2022-11-03] MEDS: Carvedilol 6.25 MG Tablet PO ×2 (08:25→17:18)
[2022-11-03] MEDS: Spironolactone 25 MG Tablet 12.5 MG PO (08:25)
[2022-11-03] MEDS: Furosemide 40 MG Tablet PO ×2 (08:25→17:17)
[2022-11-03] MEDS: Lisinopril 5 MG Tablet PO (08:25)
[2022-11-03] MEDS: Pantoprazole Sodium 20 MG Tablet PO (08:25)
[2022-11-03] MEDS: Clopidogrel Bisulfate 75 MG Tablet PO (08:25)
[2022-11-03] MEDS: Empagliflozin 10 MG Tablet PO (08:26)
[2022-11-03 17:25] LABS: Bedside Glucose 146 mg/dL (74-106)
[2022-11-03 20:27] VITALS: BP 117/57; PULSE 72; RESP 16; TEMP 36.4; O2SAT 96
[2022-11-03] MEDS: traZODone 50 MG Tablet PO (20:31)
[2022-11-03] MEDS: Atorvastatin Calcium 40 MG Tablet PO (20:36)
[2022-11-03] MEDS: Oxybutynin 5 MG Tablet PO (20:37)
[2022-11-03 22:00] VITALS: PULSE 72; RESP 16; O2SAT 96
[2022-11-04] MEDS: Levothyroxine 88 MCG Tablet PO (06:35)
[2022-11-04] MEDS: Acetaminophen 500 MG Tablet 1000 MG PO (06:43)
[2022-11-04 07:00] LABS: Bedside Glucose 143 mg/dL (74-106)
[2022-11-04 07:24] VITALS: BP 111/60; PULSE 71; RESP 18; TEMP 37.2; O2SAT 93
[2022-11-04] MEDS: Spironolactone 25 MG Tablet 12.5 MG PO (08:02)
[2022-11-04] MEDS: Aspirin E.C. 81 MG Tablet PO (08:03)
[2022-11-04] MEDS: Pantoprazole Sodium 20 MG Tablet PO (08:03)
[2022-11-04] MEDS: Lisinopril 5 MG Tablet PO (08:03)
[2022-11-04] MEDS: Clopidogrel Bisulfate 75 MG Tablet PO (08:03)
[2022-11-04] MEDS: Furosemide 40 MG Tablet PO (08:03)
[2022-11-04] MEDS: Empagliflozin 10 MG Tablet PO (08:03)
[2022-11-04] MEDS: Carvedilol 6.25 MG Tablet PO ×2 (08:03→17:06)
--- NOTE | 2022-11-04 11:22 | PN_ITS ---
Subjective Subjective Viktoriya was seen on TEAM rounds today and 2 of her daughters and her son and his were present in the room for rounds. Afebrile VSS-blood pressures are within goal. Heart rate is normal. Maintaining appropriate oxygen saturation on to 96% on room air. Oral intake is good Has been incontinent of urine so outputs are not accurate. Her weight has decreased from 175 pounds on 10/30/22 to 171 pounds and 12 ounces today. Discussed with nursing - no problems that need addressed Reviewed the PT/OT/ST notes - She is progressing but, she overestimates what her abilities are and has poor safety awareness. She has been getting up and taking herself to the BR. Medication list reviewed. She denies DIETRICH today. She also denies CP, SOB, palpitations, vertigo, lightheadedness, dysuria, N/V/abd pain and calf pain. She is sleeping well and night. She has not been eating very much. She tells me that the food is bland with no salt. I explained to her and her family that with an EF of 20% the more salt she eats the more fluid she is going to retain and it will put her into heart failure. I suggested maybe her family could bring in some Mrs Garcia for her to use on her food. All lab was personally reviewed. Sodium is low at 134, potassium is 4.0 and the BUN is 17, up from 12 1 10/31/2022 with a creatinine of 1.12 which is up from 0.8 on 10/31/2022. Objective Data Objective Data Vital Signs: Vital Signs Temp Pulse Resp BP Pulse Ox O2 Del Method 98.9 F 71 18 111/60 93 Room Air 11/04/22 07:24 11/04/22 07:24 11/04/22 07:24 11/04/22 07:24 11/04/22 07:24 11/04/22 07:24 Oxygen Delivery Method Room Air Weight: 171 lb 11.841 oz Intake & Output: Intake and Output for Last 24 Hours 11/02/22 11/03/22 11/04/22 23:59 23:59 23:59 Intake Total 1580 / 1580 1560 / 1560 480 / 480 Output Total 450 / 450 800 / 800 350 / 350 Balance 1130 / 1130 760 / 760 130 / 130 Lab / Micro Data Result Diagrams: 10/31/22 07:50 11/04/22 13:10 Labs: Laboratory Results - last 24 hr 11/03/22 16:55: POC Glucose 146 H 11/04/22 06:39: POC Glucose 143 H Physical Exam Const alert and no apparent distress General Appearance: cooperative Neck Neck Narrative: Less JVD today than on Tuesday. Resp normal respiratory effort, normal air movement and clear to auscultation bilaterally Resp Narrative: No conversational dyspnea Effort and Inspection: Negative for tachypneic Cardio regular rate, regular rhythm, no murmurs and no gallops Cardio Narrative: No ectopy GI normal to inspection, nondistended, normoactive bowel sounds, soft to palpation and non-tender Extremity no calf tenderness General Extremity: Negative for edema Skin Skin Narrative: Warm and dry General Skin Exam: no breakdown Rashes: no rashes Neuro CN's II-XII intact bilaterally Neuro Narrative: some mild weakness on the R side......getting better......R human resources admin strength increased this week. Still with dysequilibrium but, therapy has now started to have her walk without a device at times at [facility]. Still with R quadrantopia....... but, she is reading again......having some difficulty seeing the R side of the page when trying to follow a recipe and when looking in the cupboard she is not finding things that are on the R side of the cupboard. She is improving and I reassured her family I think she will continue to improve but, it takes time. Psych cooperative, affect normal, denies homicidal ideation and denies suicidal ideation; Negative for thought process normal Appearance: appropriate Attitude: No agitated Activity / Motor Behavior: Negative for restless Assessment & Plan Assessment/Plan (1) Debility: PLAN: Continue therapy (2) Ischemic stroke: (3) NSTEMI (non-ST elevated myocardial infarction): (4) Heart failure with reduced ejection fraction: PLAN: Ejection fraction was 20% at presentation to the hospital and this is presumed to be secondary to Takotsubo's cardiomyopathy (5) Severe pulmonary hypertension: (6) Arteriosclerosis: (7) Stenosis of left subclavian artery: (8) Hyperlipidemia: (9) Hypertension: (10) Takotsubo syndrome: (11) Diabetes mellitus, type 2: PLAN: Plan 1. Continue therapy 2. Daily weights 3. Add low-salt and low-fat to current diet. 4. BMP and magnesium today - the creat has increased from 0.8 on 10/31/2019 3- 1.12 today which is consistent with acute renal failure. This is likely secondary to intravascular volume depletion. We will decrease the Lasix to 40 mg once a day and continue to follow daily weights. Urine output is inaccurate secondary to incontinence. 5. I answered all the questions her family had to their satisfaction. Aminata will be going to her dtr [facility] [place] following DC from rehab. 6. will need follow up with Dr. Ordonez for neurology, Dr. Conn, Dr. Campbell and with Dr. Kamara from vascular surgery. 7. Pt was told to increase her wter intake tonight. Will recheck a BMP in a fe w days. Monitory daily wt's. Charges/Coding Visit Charges Inpatient E&M: 39614 Subs Hosp L2
--- NOTE | 2022-11-04 13:19 | CASEMGMT ---
Social Work IDT met with patient, two daughters, son and DIL for Team meeting. Discussed patient's progress in PT/OT/ST/SN. Educated to Medicare approval of 13 days with EDC 11/13. Pt will DC to dtr's house until pt is ready to DC home alone. Discussed right side visual neglect and coordination; noticing cognition and poor insight to memory loss. SW to coordinate DC plans. Will ReTeam next week. SW to continue to follow. Swati Cotton, CYTOGEN[employer] LABORATORY MANAGER EMT/DISPATCHER
[2022-11-04 13:48] LABS: Anion Gap 7 (5-15); BUN 17 mg/dL (7-18); BUN/Creat Ratio 15.2 RATIO (10-20); Calcium,Total 8.8 mg/dL (8.5-10.1); Chloride 101 mmol/L (98-107); Creatinine, Serum 1.12 mg/dL (0.55-1.02); EST Glomerular Filtration Rate 49 mL/min (>60); Est Glom Filt Rate - Afr Amer 60 mL/min (>60); Estimated Creatinine Clearance 32.29 ml/min; Glucose 219 mg/dL (74-106); Magnesium 2.5 mg/dL (1.6-2.6); Sodium Level 134 mmol/L (136-145)
[2022-11-04 17:21] LABS: Bedside Glucose 137 mg/dL (74-106)
[2022-11-04] MEDS: Atorvastatin Calcium 40 MG Tablet PO (21:47)
[2022-11-04] MEDS: Oxybutynin 5 MG Tablet PO (21:47)
[2022-11-04] MEDS: traZODone 50 MG Tablet PO (21:47)
[2022-11-04 21:51] VITALS: BP 113/52; PULSE 58; RESP 16; TEMP 36.4; O2SAT 94
[2022-11-04] MEDS: Senna/Docusate Sodium 1 Tablet PO (21:51)
[2022-11-05 05:11] VITALS: PULSE 71; RESP 16; O2SAT 85
[2022-11-05 05:12] VITALS: PULSE 63; O2SAT 93
[2022-11-05] MEDS: Acetaminophen 500 MG Tablet 1000 MG PO ×2 (05:15→13:56)
[2022-11-05] MEDS: Levothyroxine 88 MCG Tablet PO (05:15)
[2022-11-05 06:40] VITALS: O2SAT 92
[2022-11-05 06:40] LABS: Bedside Glucose 142 mg/dL (74-106)
[2022-11-05] MEDS: Carvedilol 6.25 MG Tablet PO ×2 (07:52→17:02)
[2022-11-05] MEDS: Aspirin E.C. 81 MG Tablet PO (07:52)
[2022-11-05] MEDS: Clopidogrel Bisulfate 75 MG Tablet PO (07:52)
[2022-11-05] MEDS: Lisinopril 5 MG Tablet PO (07:53)
[2022-11-05] MEDS: Furosemide 40 MG Tablet PO (07:53)
[2022-11-05] MEDS: Senna/Docusate Sodium 1 Tablet PO (07:53)
[2022-11-05] MEDS: Pantoprazole Sodium 20 MG Tablet PO (07:53)
[2022-11-05] MEDS: Empagliflozin 10 MG Tablet PO (07:53)
[2022-11-05] MEDS: Spironolactone 25 MG Tablet 12.5 MG PO (07:53)
[2022-11-05 09:00] VITALS: O2SAT 98
[2022-11-05 10:00] VITALS: BP 126/72; PULSE 71; RESP 16; TEMP 37.1; O2SAT 96
--- NOTE | 2022-11-05 10:19 | PN_ITS ---
Subjective Subjective Afebrile VSS Plced on a NC last night at 3L for a RA pulse ox of 85%. Oral intake is adequate Weight is 171.4 pounds down from 171.7 pounds yesterday. The blood sugar record was reviewed and the blood sugars are very well controlled. Discussed with nursing - no problems that need addressed other than the drop in O2 sat. Reviewed the PT/OT/ST notes Medication list reviewed. Denies SOB now but tells that she felt SOB early this morning. Not coughing. Able to take deep breaths and does well with the IS. Denies CP, palpitations, lightheadedness. Objective Data Objective Data Vital Signs: Vital Signs Temp Pulse Resp BP Pulse Ox O2 Del Method O2 Flow Rate 98.7 F 71 16 126/72 H 96 Nasal Cannula 3 11/05/22 10:00 11/05/22 10:00 11/05/22 10:00 11/05/22 10:00 11/05/22 10:00 11/05/22 10:00 11/05/22 10:00 Oxygen Flow Rate (L/min) 3 Oxygen Delivery Method Nasal Cannula Weight: 171 lb 6.4 oz Intake & Output: Intake and Output for Last 24 Hours 11/03/22 11/04/22 11/05/22 23:59 23:59 23:59 Intake Total 1560 / 1560 1200 / 1200 640 / 640 Output Total 800 / 800 750 / 750 Balance 760 / 760 450 / 450 640 / 640 Lab / Micro Data Result Diagrams: 10/31/22 07:50 11/04/22 13:10 Labs: Laboratory Results - last 24 hr 11/04/22 13:10: Sodium 134 L, Potassium 4.0, Chloride 101, Carbon Dioxide 26.0, Anion Gap 7, BUN 17, Creatinine 1.12 H, Estim Creat Clear Calc 32.29, Est GFR (MDRD) Af Amer 60, Est GFR (MDRD) Non-Af 49 L, BUN/Creatinine Ratio 15.2, Glucose 219 H, Calcium 8.8, Magnesium 2.5 11/04/22 16:10: POC Glucose 137 H 11/05/22 05:47: POC Glucose 142 H Physical Exam Const alert and no apparent distress General Appearance: cooperative HEENT normocephalic Neck supple Neck Narrative: Less JVD today than on Natalia. General: trachea midline Resp normal respiratory effort, normal air movement and clear to auscultation bilaterally Resp Narrative: few crackles in the R base....but, they mostly cleared after a few deep breaths. Not coughing with deep breaths. Effort and Inspection: Negative for tachypneic, respiratory distress, labored or uses accessory muscles Auscultation: diminished lung sounds Cardio regular rate, regular rhythm, no murmurs, no rub and no gallops Cardio Narrative: No ectopy GI normal to inspection, nondistended, normoactive bowel sounds, soft to palpation and non-tender Extremity no calf tenderness Extremity Narrative: no pitting edema General Extremity: Negative for edema Skin Skin Narrative: Warm and dry General Skin Exam: no breakdown Rashes: no rashes Neuro CN's II-XII intact bilaterally Neuro Narrative: some mild weakness on the R side......getting better......R respiratory care program director strength increased this week. Still with dysequilibrium but, therapy has now started to have her walk without a device at times at [facility]. Still with R quadrantopia.......but, she is reading again......having some difficulty seeing the R side of the page when trying to follow a recipe and when looking in the cupboard she is not finding things that are on the R side of the cupboard. She is improving and I reassured her family I think she will continue to improve but, it takes time. Psych cooperative, affect normal, denies homicidal ideation and denies suicidal ideation; Negative for thought process normal Appearance: appropriate Attitude: No agitated Activity / Motor Behavior: Negative for restless Assessment & Plan Assessment/Plan (1) Debility: PLAN: Continue therapy (2) Ischemic stroke: (3) NSTEMI (non-ST elevated myocardial infarction): (4) Heart failure with reduced ejection fraction: PLAN: Ejection fraction was 20% at presentation to the hospital and this is presumed to be secondary to Takotsubo's cardiomyopathy (5) Severe pulmonary hypertension: (6) Arteriosclerosis: (7) Stenosis of left subclavian artery: (8) Hyperlipidemia: (9) Hypertension: (10) Takotsubo syndrome: (11) Diabetes mellitus, type 2: (12) Acute renal failure: PLAN: Plan 1. Continue therapy 2. The hypoxia may be due to dehydration......she has severe pulmonary HTN and if the RV volume is decreased the amount of blood going to the lungs will decre ase and may not be able to overcome the high pressure in the lungs. We decreased the Lasix to once a day yesterday and she increased her fluid intake. I took the oxygen off and will check a pulse ox on RA. 3. PA and lateral CXR today. 4. Recheck a BMP in the AM and a BNP Charges/Coding Visit Charges Inpatient E&M: 96104 Subs Hosp L2
--- NOTE | 2022-11-05 10:56 | RAD_ITS ---
STUDY: X-RAY CHEST REASON FOR EXAM: Female, 82 years old. Hypoxemia TECHNIQUE: PA and lateral views of the chest. COMPARISON: Comparison is made with prior study dated 10/26/2022. FINDINGS: Hyperinflation. Scattered calcified granulomas. Mild residual increased markings at the lung bases suggestive of scarring. Residual blunting of both costophrenic angles. There is mild cardiac enlargement. Normal mediastinum and alida. Normal visualized pulmonary arteries. There is atherosclerotic calcification of the aortic arch with tortuosity. There are diffuse degenerative changes of the visualized thoracic spine. Normal visualized ribs, clavicles, and shoulders. There is no demonstrated abnormality of the visualized soft tissue structures of the upper abdomen. RAD/Chest PA and Lateral IMPRESSION: Hyperinflation. Mild increased markings at the lung bases suggestive of scarring. Electronically Signed: Fernando Acosta MD at 12:44 EST ,
[2022-11-05] MEDS: 0.9% Normal Saline 1,000 ML 50 ML IV (13:33)
[2022-11-05] MEDS: 0.9% Saline Lock 10 ML Syringe IV (13:34)
[2022-11-05 17:01] LABS: Bedside Glucose 125 mg/dL (74-106)
[2022-11-05] MEDS: traZODone 50 MG Tablet PO (21:43)
[2022-11-05] MEDS: Oxybutynin 5 MG Tablet PO (21:43)
[2022-11-05] MEDS: Atorvastatin Calcium 40 MG Tablet PO (21:43)
[2022-11-05 21:57] VITALS: BP 110/54; PULSE 62; RESP 16; TEMP 36.4; O2SAT 92
--- NOTE | 2022-11-06 00:20 | NURSING ---
Dial-a-flow tubing connected to primary tubing as IVAC needed on another unit. Dial set to 50ml/hr. IV site to rt hand without redness or swelling. Will continue to monitor.
[2022-11-06] MEDS: Levothyroxine 88 MCG Tablet PO (05:10)
[2022-11-06 06:31] LABS: ALB/GLOB Ratio 0.8 RATIO (0.9-2.4); AST(SGOT) 18 U/L (15-37); Alanine Aminotransfer ALT/SGPT 21 U/L (13-56); Albumin, Serum 3.2 g/dL (3.2-5.0); Alkaline Phosphatase 65 U/L (45-117); Anion Gap 3 (5-15); BUN 14 mg/dL (7-18); BUN/Creat Ratio 17.9 RATIO (10-20); Calcium,Total 8.8 mg/dL (8.5-10.1); Chloride 107 mmol/L (98-107); Creatinine, Serum 0.78 mg/dL (0.55-1.02); EST Glomerular Filtration Rate 75 mL/min (>60); Est Glom Filt Rate - Afr Amer 90 mL/min (>60); Estimated Creatinine Clearance 36.16 ml/min; Globulin 3.8 g/dL (2.2-4.2); Glucose 142 mg/dL (74-106); Potassium 4.2 mmol/L (3.5-5.1); Sodium Level 139 mmol/L (136-145)
[2022-11-06 06:46] LABS: Bedside Glucose 132 mg/dL (74-106)
[2022-11-06 07:00] VITALS: BP 170/75; PULSE 68; RESP 18; TEMP 36.6; O2SAT 89
[2022-11-06 07:07] LABS: BNP,B-Type NATRIURETIC PEPTIDE 131.7 pg/mL (0-100)
[2022-11-06 08:38] VITALS: O2SAT 97
[2022-11-06 09:54] VITALS: BP 127/79; PULSE 64; RESP 18; TEMP 37.1; O2SAT 98
[2022-11-06] MEDS: Aspirin E.C. 81 MG Tablet PO (10:02)
[2022-11-06] MEDS: Spironolactone 25 MG Tablet 12.5 MG PO (10:02)
[2022-11-06] MEDS: Carvedilol 6.25 MG Tablet PO ×2 (10:02→16:52)
[2022-11-06] MEDS: Clopidogrel Bisulfate 75 MG Tablet PO (10:03)
[2022-11-06] MEDS: Pantoprazole Sodium 20 MG Tablet PO (10:03)
[2022-11-06] MEDS: Furosemide 40 MG Tablet PO (10:03)
[2022-11-06] MEDS: Empagliflozin 10 MG Tablet PO (10:03)
[2022-11-06] MEDS: Lisinopril 5 MG Tablet PO (10:04)
[2022-11-06] MEDS: Acetaminophen 500 MG Tablet 1000 MG PO (10:16)
[2022-11-06 11:00] VITALS: O2SAT 98
--- NOTE | 2022-11-06 11:04 | PCM.PROGNOTE ---
Subjective Subjective Afebrile VSS She was 89% on room air today and is 98% on 2 L. Oral intake is good Blood sugar record was reviewed and the blood sugars remain in very good control. Weight today is 175.9 pounds. She had 750 cc of normal saline overnight. Discussed with nursing - no problems that need addressed Reviewed the PT/OT/ST notes Medication list reviewed. All lab was personally reviewed. Sodium is 139, up from 1 7:34 150 cc of normal saline. The BUN is 14 and the creatinine is 0.78, down from 1.12 on 11/04/2022 following gentle hydration with normal saline. The BNP today is 131.7. Bilirubin is 1.5 and may be elevated due to pulmonary hypertension/right heart failure. Transaminases are within normal limits. Aminata is tearful today and down in the dumps. She is worrying about being a burden on her children. I do not think she will need to be at her dtr's for very long before she will be able to live independently again. Appetite is poor and she misses salt. I asked her to ask her dtr's if they can purchase a few different kinds of Mrs Garcia to try to see if any of those spices increase the taste of her food. She is worried about her breathing. I explained about the pulmonary HTN, granulomas and scarring and how oxygenation declines with exercise when you have pulmonary HTN and she told me that she has noticed she has been able to do less at home due to SOB and fatigue.......I suspect she has been getting hypoxic at home.....this may be what lead to the NSTEMI when she was shoveling snow, she was very SOB and knew she was in trouble and she stopped. She denies lightheadedness today and also denies CP and SOB with rest.....no NC at rest. She tolerated exercise better with 2 LPM nasal O2. Suspect we will need to send her home with oxygen. Does not have palpitations when she exercises with the oxygen. Objective Data Objective Data Vital Signs: Vital Signs Temp Pulse Resp BP Pulse Ox O2 Del Method O2 Flow Rate 98.7 F 64 18 127/79 H 98 Nasal Cannula 2 11/06/22 09:54 11/06/22 09:54 11/06/22 09:54 11/06/22 09:54 11/06/22 11:00 11/06/22 11:00 11/06/22 11:00 Oxygen Flow Rate (L/min) 2 Oxygen Delivery Method Nasal Cannula Weight: 175 lb 14.862 oz Intake & Output: Intake and Output for Last 24 Hours 11/04/22 11/05/22 11/06/22 23:59 23:59 23:59 Intake Total 1200 / 1200 1260 / 1260 60 / 60 Output Total 750 / 750 Balance 450 / 450 1260 / 1260 60 / 60 Lab / Micro Data Result Diagrams: 10/31/22 07:50 11/06/22 04:03 Labs: Laboratory Results - last 24 hr 11/05/22 16:37: POC Glucose 125 H 11/06/22 04:03: Sodium 139, Potassium 4.2, Chloride 107, Carbon Dioxide 29.0, Anion Gap 3 L, BUN 14, Creatinine 0.78, Estim Creat Clear Calc 36.16, Est GFR (MDRD) Af Amer 90, Est GFR (MDRD) Non-Af 75, BUN/Creatinine Ratio 17.9, Glucose 142 H, Calcium 8.8, Total Bilirubin 1.50 H, AST 18, ALT 21, Alkaline Phosphatase 65, Total Protein 7.0, Albumin 3.2, Globulin 3.8, Albumin/Globulin Ratio 0.8 L 11/06/22 04:03: B-Natriuretic Peptide 131.7 H 11/06/22 06:22: POC Glucose 132 H Radiography Diagnostic Testing: Radiology Impression Chest X-Ray 11/05/22 10:56 IMPRESSION: Hyperinflation. Mild increased markings at the lung bases suggestive of scarring. Electronically Signed: Fernando Acosta MD at 12:44 EST , Physical Exam Const alert Constitutional Narrative: Told me she was not so good today and then started to cry. Knows that she is depressed. Explained to her that it is not uncommon to go through a depression when you have a stroke. She had some depression prior to the stroke. Her son 7 years ago and her sister and best friend past and she never quite got over this per her dtr Nicki. General Appearance: cooperative HEENT HEENT Narrative: very [place] Resp clear to auscultation bilaterally Resp Narrative: Few crackles, coarse, in the R base......I suspect this is due to scarring. Cardio regular rate, regular rhythm and no gallops GI normal to inspection, nondistended, normoactive bowel sounds, soft to palpation and non-tender Extremity no calf tenderness General Extremity: Negative for edema Skin General Skin Exam: no breakdown Rashes: no rashes Assessment & Plan Assessment/Plan (1) Debility: (2) NSTEMI (non-ST elevated myocardial infarction): (3) Acute respiratory failure with hypoxia: (4) Heart failure with reduced ejection fraction: (5) Ischemic stroke: (6) Diabetes mellitus, type 2: (7) Severe pulmonary hypertension: (8) Hypoxia: (9) Depression: PLAN: Plan 1. Continue therapy 2. Start Remeron 15 mg at HS 3. will need to go home with oxygen for exercise and when sleeping 4. Would like her to follow up with accounting policy consultant at some point post DC. 5. 30 day event monitor at [facility] and then follow up with Dr. Campbell 6. Follow up with Dr. Ordonez for neurology 7. Stop Trazodone since we are starting Remeron and this will help her to sleep 8. Recheck a BMP next week. 9. Continue Lasix only once a day and get daily weights Charges/Coding Visit Charges Inpatient E&M: 86051 Subs Hosp L2
[2022-11-06] MEDS: 0.9% Saline Lock 10 ML Syringe IV ×2 (16:55→21:24)
[2022-11-06 17:31] LABS: Bedside Glucose 150 mg/dL (74-106)
[2022-11-06 20:36] VITALS: BP 157/80; PULSE 81; RESP 17; TEMP 35.7; O2SAT 90
[2022-11-06] MEDS: Atorvastatin Calcium 40 MG Tablet PO (21:21)
[2022-11-06] MEDS: traZODone 50 MG Tablet PO (21:21)
[2022-11-06] MEDS: Oxybutynin 5 MG Tablet PO (21:21)
[2022-11-07] MEDS: Acetaminophen 500 MG Tablet 1000 MG PO (05:46)
[2022-11-07] MEDS: Levothyroxine 88 MCG Tablet PO (05:47)
[2022-11-07 07:20] LABS: Bedside Glucose 135 mg/dL (74-106)
[2022-11-07] MEDS: Spironolactone 25 MG Tablet 12.5 MG PO (08:07)
[2022-11-07] MEDS: Lisinopril 5 MG Tablet PO (08:08)
[2022-11-07] MEDS: Pantoprazole Sodium 20 MG Tablet PO (08:08)
[2022-11-07] MEDS: Aspirin E.C. 81 MG Tablet PO (08:09)
[2022-11-07] MEDS: Clopidogrel Bisulfate 75 MG Tablet PO (08:09)
[2022-11-07] MEDS: Carvedilol 6.25 MG Tablet PO ×2 (08:09→16:18)
[2022-11-07] MEDS: Empagliflozin 10 MG Tablet PO (08:09)
[2022-11-07] MEDS: Furosemide 40 MG Tablet PO (08:09)
[2022-11-07 09:31] VITALS: BP 122/59; PULSE 64; RESP 16; TEMP 37.1; O2SAT 91
[2022-11-07 09:43] VITALS: PULSE 63; O2SAT 98
[2022-11-07 10:07] VITALS: O2SAT 98
[2022-11-07] MEDS: Loperamide 2 MG Capsule 4 MG PO (12:05)
[2022-11-07 16:00] VITALS: O2SAT 88
[2022-11-07 16:20] VITALS: O2SAT 93
[2022-11-07 16:56] LABS: Bedside Glucose 169 mg/dL (74-106)
[2022-11-07] MEDS: 0.9% Saline Lock 10 ML Syringe IV ×2 (17:51→21:37)
[2022-11-07 19:43] VITALS: BP 128/64; PULSE 67; RESP 17; TEMP 36.8; O2SAT 88
[2022-11-07] MEDS: Mirtazapine 15 MG Tablet PO (20:13)
[2022-11-07] MEDS: traZODone 50 MG Tablet PO (20:13)
[2022-11-07] MEDS: Oxybutynin 5 MG Tablet PO (21:37)
[2022-11-07] MEDS: Atorvastatin Calcium 40 MG Tablet PO (21:37)
[2022-11-08] MEDS: Levothyroxine 88 MCG Tablet PO (06:41)
[2022-11-08] MEDS: Acetaminophen 500 MG Tablet 1000 MG PO ×2 (06:46→14:27)
[2022-11-08 07:25] LABS: Bedside Glucose 140 mg/dL (74-106)
[2022-11-08 08:31] VITALS: BP 127/61; PULSE 68; RESP 20; TEMP 36.9; O2SAT 93
[2022-11-08] MEDS: Aspirin E.C. 81 MG Tablet PO (08:33)
[2022-11-08] MEDS: Furosemide 40 MG Tablet PO (08:33)
[2022-11-08] MEDS: Spironolactone 25 MG Tablet 12.5 MG PO (08:33)
[2022-11-08] MEDS: Clopidogrel Bisulfate 75 MG Tablet PO (08:33)
[2022-11-08] MEDS: Carvedilol 6.25 MG Tablet PO ×2 (08:33→17:52)
[2022-11-08] MEDS: Pantoprazole Sodium 20 MG Tablet PO (08:33)
[2022-11-08] MEDS: Empagliflozin 10 MG Tablet PO (08:33)
[2022-11-08] MEDS: Lisinopril 5 MG Tablet PO (08:33)
[2022-11-08 09:00] VITALS: O2SAT 93
[2022-11-08 17:06] LABS: Bedside Glucose 119 mg/dL (74-106)
[2022-11-08] MEDS: 0.9% Saline Lock 10 ML Syringe IV (17:53)
[2022-11-08 20:04] VITALS: BP 145/61; PULSE 64; RESP 17; TEMP 36.8; O2SAT 97
[2022-11-08] MEDS: Oxybutynin 5 MG Tablet PO (20:35)
[2022-11-08] MEDS: Mirtazapine 15 MG Tablet PO (20:35)
[2022-11-08] MEDS: Atorvastatin Calcium 40 MG Tablet PO (20:36)
[2022-11-08 22:00] VITALS: PULSE 64; RESP 18
[2022-11-09] MEDS: Levothyroxine 88 MCG Tablet PO (06:55)
[2022-11-09 07:23] VITALS: BP 150/66; PULSE 71; RESP 15; TEMP 36.1; O2SAT 97
[2022-11-09 07:40] LABS: Bedside Glucose 125 mg/dL (74-106)
[2022-11-09] MEDS: Aspirin E.C. 81 MG Tablet PO (08:35)
[2022-11-09] MEDS: Empagliflozin 10 MG Tablet PO (08:36)
[2022-11-09] MEDS: Spironolactone 25 MG Tablet 12.5 MG PO (08:36)
[2022-11-09] MEDS: Clopidogrel Bisulfate 75 MG Tablet PO (08:36)
[2022-11-09] MEDS: Carvedilol 6.25 MG Tablet PO ×2 (08:36→16:28)
[2022-11-09] MEDS: Furosemide 40 MG Tablet PO (08:36)
[2022-11-09] MEDS: Lisinopril 5 MG Tablet PO (08:37)
[2022-11-09] MEDS: Pantoprazole Sodium 20 MG Tablet PO (08:37)
[2022-11-09 10:02] VITALS: O2SAT 95
--- NOTE | 2022-11-09 11:04 | PCM.PROGNOTE ---
Subjective Subjective Afebrile VSS - systolic blood pressure is occasionally above goal but, for the most part the BP is well controlled. Maintaining appropriate oxygen saturation on RA at rest but wearing 2 L/min of nasal O2 when exercising and at night. Oral intake is fair to good. She ate 75 to 100% of her breakfast this morning. Blood sugar record was reviewed and the blood sugars are under good control with no blood sugars over 180. Discussed with nursing - no problems that need addressed. Reviewed the PT/OT/ST notes Medication list reviewed. Today is day #10 on DAP drugs for ischemic CVA......She was on DAP meds prior to the stroke because of the NSTEMI. HGB has been normal........will need to discuss with cardiology whether they want to continue dual antiplatelet drugs past the 21 days indication for acute ischemic stroke. Aminata denies lightheadedness, vertigo, CP, SOB at rest, SOB with exertion, cough, nausea, vomiting, abd pain, diarrhea, constipation, dysuria, calf pain and ankle swelling. She was a little drowsy yesterday.......she got Trazodone 50 mg and Remeron 15 mg Tuesday night. Trazodone has since been discontinued. She had a DIETRICH yesterday and it got somewhat better as the day went on. She is also c/o a DIETRICH today. I reviewed once again the SE's of Mirtazapine and in the post marketing side effects migraine is listed. Objective Data Objective Data Vital Signs: Vital Signs Temp Pulse Resp BP Pulse Ox O2 Del Method O2 Flow Rate 96.9 F L 71 15 150/66 H 97 Nasal Cannula 2 11/09/22 07:23 11/09/22 07:23 11/09/22 07:23 11/09/22 07:23 11/09/22 07:23 11/09/22 10:00 11/09/22 10:00 Oxygen Flow Rate (L/min) 2 Oxygen Delivery Method Nasal Cannula Weight: 173 lb 12.8 oz Intake & Output: Intake and Output for Last 24 Hours 11/07/22 11/08/22 11/09/22 23:59 23:59 23:59 Intake Total 1625 / 1625 1280 / 1380 520 / 520 Output Total 770 / 770 550 / 550 Balance 1625 / 1625 510 / 610 -30 / -30 Lab / Micro Data Result Diagrams: 10/31/22 07:50 11/06/22 04:03 Labs: Laboratory Results - last 24 hr 11/08/22 16:19: POC Glucose 119 H 11/09/22 07:15: POC Glucose 125 H Physical Exam Const alert and oriented x3 General Appearance: cooperative Neck supple Neck Narrative: Less JVD today than on Tuesday. Resp clear to auscultation bilaterally Resp Narrative: Few crackles, coarse, in the R base......I suspect this is due to scarring. Effort and Inspection: Negative for tachypneic Auscultation: diminished lung sounds Cardio regular rate, regular rhythm, no murmurs, no rub and no gallops Cardio Narrative: No ectopy GI normal to inspection, nondistended, normoactive bowel sounds, soft to palpation and non-tender Extremity no calf tenderness Extremity Narrative: no pitting edema General Extremity: Negative for edema Skin Skin Narrative: Warm and dry General Skin Exam: no breakdown Rashes: no rashes Assessment & Plan Assessment/Plan (1) Debility: (2) NSTEMI (non-ST elevated myocardial infarction): (3) Acute respiratory failure with hypoxia: (4) Heart failure with reduced ejection fraction: (5) Ischemic stroke: (6) Diabetes mellitus, type 2: (7) Severe pulmonary hypertension: (8) Hypoxia: (9) Depression: (10) Cephalgia: PLAN: This is not a common side effect of mirtazapine however in the post marketing research migraine was a possible side effect. PLAN: Plan 1. Hold mirtazapine tonight 2. Continue therapy 3. Continue Lasix 40 mg once daily-weight is stable and she denies orthopnea, paroxysmal nocturnal dyspnea and has no ankle edema Charges/Coding Visit Charges Inpatient E&M: 11500 Subs Hosp L2
[2022-11-09] MEDS: Acetaminophen 500 MG Tablet 1000 MG PO (12:44)
[2022-11-09 17:31] LABS: Bedside Glucose 132 mg/dL (74-106)
[2022-11-09 20:00] VITALS: BP 140/69; PULSE 63; RESP 17; TEMP 36.7; O2SAT 97
[2022-11-09 20:15] VITALS: O2SAT 96
[2022-11-09] MEDS: Atorvastatin Calcium 40 MG Tablet PO (20:32)
[2022-11-09] MEDS: Oxybutynin 5 MG Tablet PO (20:32)
[2022-11-09] MEDS: Senna/Docusate Sodium 1 Tablet PO (20:34)
[2022-11-10] MEDS: Levothyroxine 88 MCG Tablet PO (06:29)
[2022-11-10 07:35] LABS: Bedside Glucose 135 mg/dL (74-106)
[2022-11-10 07:55] VITALS: BP 141/64; PULSE 64; RESP 16; TEMP 36.2; O2SAT 93
[2022-11-10] MEDS: Spironolactone 25 MG Tablet 12.5 MG PO (08:16)
[2022-11-10] MEDS: Empagliflozin 10 MG Tablet PO (08:17)
[2022-11-10] MEDS: Clopidogrel Bisulfate 75 MG Tablet PO (08:17)
[2022-11-10] MEDS: Furosemide 40 MG Tablet PO (08:17)
[2022-11-10] MEDS: Carvedilol 6.25 MG Tablet PO ×2 (08:17→17:09)
[2022-11-10] MEDS: Aspirin E.C. 81 MG Tablet PO (08:17)
[2022-11-10] MEDS: Pantoprazole Sodium 20 MG Tablet PO (08:18)
[2022-11-10] MEDS: Acetaminophen 500 MG Tablet 1000 MG PO (08:18)
[2022-11-10] MEDS: Lisinopril 5 MG Tablet PO ×2 (08:18→20:34)
[2022-11-10 10:25] VITALS: O2SAT 89
--- NOTE | 2022-11-10 13:10 | PN_ITS ---
Progress Note Afebrile Vital signs are stable PT/OT/ST notes were reviewed Blood sugars are very well controlled Medication list was reviewed. Viktoriya denies lightheadedness, chest pain, shortness of breath. She tells me she had only a mild headache today and it resolved prior to noon. Mirtazapine was held last night because of potential side effect of migraine cephalgia. Lungs-clear to auscultation No peripheral edema Heart regular rate and rhythm, no gallop Impressions 1. Debility secondary to stroke 2. Diabetes mellitus type [id number] 3. Hypertension-would like to see the blood pressure consistently less than 130/80 in light of recent stroke and cardiomyopathy with a 20% ejection fraction. Will increase lisinopril to 5 mg p.o. twice daily 4. Depression-discontinue mirtazapine and start sertraline 25 mg every morning tomorrow 5. Continue therapy Visit Charges Inpatient E&M: 99153 [facility] Hosp L1
[2022-11-10 16:21] LABS: Bedside Glucose 139 mg/dL (74-106)
[2022-11-10 19:30] VITALS: BP 126/63; PULSE 64; RESP 18; TEMP 36.3; O2SAT 96
[2022-11-10 20:25] VITALS: O2SAT 96
[2022-11-10] MEDS: Oxybutynin 5 MG Tablet PO (20:34)
[2022-11-10] MEDS: Atorvastatin Calcium 40 MG Tablet PO (20:34)
[2022-11-11] MEDS: Levothyroxine 88 MCG Tablet PO (05:41)
[2022-11-11] MEDS: Acetaminophen 500 MG Tablet 1000 MG PO (07:29)
[2022-11-11] MEDS: Aspirin E.C. 81 MG Tablet PO (07:30)
[2022-11-11] MEDS: Carvedilol 6.25 MG Tablet PO ×2 (07:30→17:30)
[2022-11-11 07:45] LABS: Bedside Glucose 139 mg/dL (74-106)
[2022-11-11 08:04] VITALS: BP 109/52; PULSE 60; RESP 17; TEMP 36.7; O2SAT 96
[2022-11-11] MEDS: Spironolactone 25 MG Tablet 12.5 MG PO (08:40)
[2022-11-11] MEDS: Sertraline 50 MG Tablet 25 MG PO (08:40)
[2022-11-11] MEDS: Pantoprazole Sodium 20 MG Tablet PO (08:40)
[2022-11-11] MEDS: Clopidogrel Bisulfate 75 MG Tablet PO (08:40)
[2022-11-11] MEDS: Lisinopril 5 MG Tablet PO ×2 (08:40→21:07)
[2022-11-11] MEDS: Furosemide 40 MG Tablet PO (08:40)
[2022-11-11] MEDS: Empagliflozin 10 MG Tablet PO (08:40)
--- NOTE | 2022-11-11 10:29 | PN_ITS ---
Subjective Subjective Aminata was seen on TEAM rounds today and 3 of her children were present in the room. Afebrile VSS-blood pressure has improved with the increase in lisinopril and she was 126/63 last evening and 109/52 this morning. Heart rate is in the 60s. Maintaining appropriate oxygen saturation on 2 L of nasal O2. Oral intake is better than it was. Fluid balance yesterday was +660 but her weight has decreased. She does have some dribbling so we are likely not capturing all of the urine output. Discussed with nursing - no problems that need addressed Reviewed the PT/OT/ST notes Medication list reviewed. Aminata denies lightheadedness, vertigo, CP, SOB at rest, SOB with exertion, cough, nausea, vomiting, abd pain, diarrhea, constipation, dysuria, calf pain and ankle swelling. Tells me she still has a headache and it is in the frontal area of her forehead. She also admits to having a runny/stuffy nose. This may be related to the oxygen. Objective Data Objective Data Vital Signs: Vital Signs Temp Pulse Resp BP Pulse Ox O2 Del Method O2 Flow Rate 98.0 F 60 17 109/52 L 96 Nasal Cannula 2 11/11/22 08:04 11/11/22 08:04 11/11/22 08:04 11/11/22 08:04 11/11/22 08:04 11/11/22 08:35 11/11/22 08:35 Oxygen Flow Rate (L/min) 2 Oxygen Delivery Method Nasal Cannula Weight: 170 lb 13.732 oz Intake & Output: Intake and Output for Last 24 Hours 11/09/22 11/10/22 11/11/22 23:59 23:59 23:59 Intake Total 1240 / 1240 1310 / 1310 360 / 360 Output Total 1150 / 1150 500 / 500 Balance 90 / 90 810 / 810 360 / 360 Lab / Micro Data Result Diagrams: 10/31/22 07:50 11/06/22 04:03 Labs: Laboratory Results - last 24 hr 11/10/22 15:57: POC Glucose 139 H 11/11/22 07:25: POC Glucose 139 H Physical Exam Const alert and no apparent distress General Appearance: cooperative Resp normal respiratory effort and normal air movement Resp Narrative: Denies orthopnea or shortness of breath at rest. She gets short of breath with exertion but the oxygen helps. She has a few coarse crackles in the right base but is otherwise clear to auscultation. Effort and Inspection: Negative for tachypneic, respiratory distress, labored or uses accessory muscles Cardio regular rate, regular rhythm and no gallops Extremity no calf tenderness Extremity Narrative: PEGGY hose are in place. General Extremity: Negative for edema Psych cooperative Psych Narrative: mood is depressed. Assessment & Plan Assessment/Plan (1) Debility: (2) Ischemic stroke: (3) Severe pulmonary hypertension: (4) Cephalgia: PLAN: This is now located only in the area of her forehead. She c/o a stuffy/runny nose and this may be due to sinus pain. (5) Takotsubo syndrome: PLAN: suspected. EF is 20%. No hx of heart disease prior to this admission. (6) Hypoxia: PLAN: primarily with exertion - more likely than not due to severe pulmonary HTN. (7) Depression: PLAN: Family is concerned that she is blah the past few days. They are aware that Remeron was discontinued due to severe DIETRICH and to drowsiness/increased inattention. She was started on Sertraline 2 days ago but, the family and the pt were made aware that it takes 4-6 weeks to see a good response from an ant idepressant. If in another 5 days she has had no adverse side effects will increase the dose to 50 mg daily for the next month and reassess in 1 month. (8) Rhinitis: PLAN: Plan 1. Continue therapy 2. Atrovent nasal spray 2 sprays each nostril twice daily 3. Check a CBC, magnesium and BMP in the a.m. 4. Discharge will be on 11/13/2022 and she will be going home with her daughter Nicki. Charges/Coding Visit Charges Inpatient E&M: 14978 Subs Hosp L2
[2022-11-11 10:44] VITALS: O2SAT 96
[2022-11-11 11:17] VITALS: O2SAT 98
--- NOTE | 2022-11-11 12:03 | CASEMGMT ---
Social Work Met with patient to confirm DC plans. DC date 11/13, home to dtr's house with skilled HHC PT/OT/ST/SN. Pt has new O2 but no other DME needs. Dtr to transport. Sent referral to [facility] for O2 via [employer]. Team meeting will be held today and dtr to provide HHC preference. Plan: DC to dtr's home 11/13, HHC PT/OT/ST/SN, O2 FRANCISCO JAVIER AndersonW
--- NOTE | 2022-11-11 13:19 | CASEMGMT ---
Addendum entered by Swati Cotton 11/11/22 14:46: Dtr requested [facility]. Referral phoned for PT/OT/ST/SN Addendum entered by Swati Cotton 11/11/22 13:41: spoke with pt and family about Palliative services. Pt/family agreeable to referral. Order entered. Referral emailed to [facility]. Original Note: Social Work IDT met with patient, two dtrs, son for Team meeting. Discussed patient's progress in PT/OT/ST/SN. Reviewed DC plans for 11/13 with skilled HHC to dtr, Alia tam. Confirmed dtr's address. Provided skilled HHC list of providers with quality and resource data via [employer] Guide. Dtr to review and choose agency. No DME needs aside from therapy. Dtr completing therapy training after Team. FRANCISCO JAVIER Anderson
[2022-11-11] MEDS: Ipratropium Bromide 0.06% NASAL SPRAY 2 SPRAY NASAL ×2 (15:01→21:05)
[2022-11-11 16:35] LABS: Bedside Glucose 142 mg/dL (74-106)
[2022-11-11 19:51] VITALS: BP 137/83; PULSE 89; RESP 16; TEMP 36.6; O2SAT 92
[2022-11-11] MEDS: Atorvastatin Calcium 40 MG Tablet PO (21:06)
[2022-11-11] MEDS: Oxybutynin 5 MG Tablet PO (21:06)
[2022-11-11 21:08] VITALS: PULSE 65; O2SAT 93
[2022-11-12 05:30] LABS: Hematocrit 38.3 % (37-47); Hemoglobin 12.2 g/dL (12.0-15.0); Mean Corp Hgb Conc 31.9 g/dL (32-36); Mean Corpuscular Hgb 30.4 pg (27.0-32.0); Mean Corpuscular Volume 95.5 fL (81-99); Mean Platelet Vol. 10.6 fl (6.2-12.0); Platelet Count 280 K/mm3 (150-450); RBC Distribution Width CV 12.8 % (11.6-14.6); RBC Distribution Width SD 45.3 fl (35.1-43.9); Red Blood Count 4.01 M/mm3 (4.2-5.4); White Blood Count 8.4 K/mm3 (4.4-11.0)
[2022-11-12 05:47] LABS: Anion Gap 7 (5-15); BUN 24 mg/dL (7-18); BUN/Creat Ratio 26.2 RATIO (10-20); Calcium,Total 9.3 mg/dL (8.5-10.1); Chloride 103 mmol/L (98-107); Creatinine, Serum 0.92 mg/dL (0.55-1.02); EST Glomerular Filtration Rate 62 mL/min (>60); Est Glom Filt Rate - Afr Amer 75 mL/min (>60); Estimated Creatinine Clearance 39.31 ml/min; Glucose 135 mg/dL (74-106); Potassium 4.4 mmol/L (3.5-5.1); Sodium Level 138 mmol/L (136-145)
[2022-11-12] MEDS: Levothyroxine 88 MCG Tablet PO (05:48)
[2022-11-12 06:55] LABS: Bedside Glucose 144 mg/dL (74-106)
[2022-11-12 07:13] VITALS: BP 123/60; PULSE 55; RESP 18; TEMP 36.5; O2SAT 100
[2022-11-12] MEDS: Spironolactone 25 MG Tablet 12.5 MG PO (07:58)
[2022-11-12] MEDS: Aspirin E.C. 81 MG Tablet PO (07:58)
[2022-11-12] MEDS: Ipratropium Bromide 0.06% NASAL SPRAY 2 SPRAY NASAL ×2 (07:59→20:42)
[2022-11-12] MEDS: Empagliflozin 10 MG Tablet PO (07:59)
[2022-11-12 08:00] VITALS: PULSE 80; O2SAT 96
[2022-11-12] MEDS: Clopidogrel Bisulfate 75 MG Tablet PO (08:00)
[2022-11-12] MEDS: Pantoprazole Sodium 20 MG Tablet PO (08:00)
[2022-11-12] MEDS: Sertraline 50 MG Tablet 25 MG PO (08:01)
[2022-11-12] MEDS: Furosemide 40 MG Tablet PO (08:03)
[2022-11-12] MEDS: Lisinopril 5 MG Tablet PO ×2 (08:03→20:41)
[2022-11-12] MEDS: Carvedilol 6.25 MG Tablet PO ×2 (08:04→16:46)
--- NOTE | 2022-11-12 09:11 | NURSING ---
Pt re-weighed d/t inconsistent weight. Standing scale weight within Pt's normal weight range.
[2022-11-12 09:57] VITALS: PULSE 80; O2SAT 96
--- NOTE | 2022-11-12 15:42 | PCM.DC ---
Discharge Instructions Diet Discharge Diet: - (1600 calorie, car consistent, low fat and low salt diet. ) Activity Discharge Activity: May Not Drive, May Shower and Use Walker (use a walker or a cane when ambulating for better stability and to prevent falls. ) Weight Bearing Status: Full weight bearing Lifting Restrictions: no more than 5 lbs. Keep extremity elevated above heart level: Legs Additional Activity Instructions:: If you get tired or short of breath walking, sit down and rest for a few minutes. Dressing / Incision Call your doctor if you observe: Fever of 101 or Higher, Numbness or Tingling, Shortness of breath, Dizziness, Fainting spells, Swelling in the ankles, Chest pain, Increased palpitations (irregular heartbeat) and Calf discomfort Follow Up Care Please Follow Up With: Han Conn MD When: 11/18/22 at 2:40 PM. Test Results: Test results from this visit will be discussed in further detail at your follow-up appointment, if applicable. Pending Tests Upon Discharge: none Discharge Plan Admission Admit Date/Time: 10/30/22 13:12 Primary Reason for Your Visit: Debility due to stroke following left heart cath. Attending Provider: Magdalene Michael Primary Care Provider: Han Conn Consulting Providers: Chris Izquierdo Chi ; Shauna Arreola ; Edgar Yuan ; Nisa Urbina ; Estella Feldman ; Mariah Berry CREDIT CONSULTANT Instructions Patient Instructions: Heart Failure and Depression, Heart Failure Flare Up Signs, Heart Failure: Tracking Your Weight, Symptoms of Stroke, Cardiomyopathy Dc, Pulmonary Hypertension, Takotsubo Cardiomyopathy Additional Instructions / Restrictions: 1. You had a heart attack while shoveling snow because this activity placed too much strain on your heart and lungs. When you had the heart attack your heart went intoshock and was not able to pump sufficient blood out of the heart so the blood/fluid backed up into your lungs and made you very short of breath. This is called congestive heart failure or CHF. You had sudden heart failure and we think it was due to Takotsubo's cardiomyopathy (read the literature I gave you which explains what this is) Heart failure can also come on gradually and the symptoms can be increased shortness of breath with walking, swelling in the ankles, shortness of breath when you are lying down in bed, waking up at night short of breath, weight increase and increased fatigue. The goal of treating heart failure is to keep you out of heart failure and out of the hospital. You can help us with this task by weighing yourself every morning when you get out of bed with a digital scale, after urinating and before eating with no clothes on. Keep a record of your weights. If your weight goes up by a pound or more 3 days in a row OR increases by 5 lbs or more in a week it means you are retaining water. This can lead to CHF. CAll your doctor or palliative care if this happens and also cut back on the amount of salt you are eating and take an extra Lasix in the afternoon for 1-2 days to get the weight back down to baseline. Weigh yourself the first morning you are home and that will be your baseline weight. If you keep your fluid intake below 45 ounces a day I think you will be fine......IF you limit your salt intake. Salt makes your body retain fluid. 2. You have pulmonary hypertension. This means the blood pressure is too high in your lungs and this makes it hard for the blood to get oxygenated in the lungs. When you increase the work the heart has to do, for instance by exerting your self, the problem gets worse. You need oxygen when you exert yourself and you also need to wear the oxygen when eating and sleeping. When you eat the blood supply gets diverted to the GI tract and it takes oxygen away from the heart and lungs so wear your oxygen when you are eating. You do not have to wear the oxygen when you are sitting watching TV or talking to people. Oxygen can dry your nose out so keep a bottle of nasal saline at home to use as needed. You have an appt with the lung doctor that has been scheduled for you. He will probably want to do some pulmonary function tests on you. There is now some effective treatment for pulmonary hypertension. 3. I think that your heart will get stronger over the next 6-12 months and the cardilogist will want to repeat the ECHO (ultrasound of the heart) at some point in the future. IF the heart gets stronger the pulmonary hypertension may improve. 4. Depression is common in patients with heart failure and with stroke patients. We tried you on Remeron (Mirtazapine) and you got sleepy and a severe head ache. You are now on a antidepressant called Sertraline (Zoloft) and you are tolerating it much better. I started you on the lowest dose. Sometimes as you age the lowest dose is effective......if after a couple weeks you are not feeling better emotionally then you may to increase the dose from 25mg to 50 mg.......you can discuss this with your PCP. 5. Your BP, diabetes and cholesterol were pretty well controlled when you came to the hospital. GOOD JOB!. You should have a HGBA1C of 7 or under, a BP of less than 130/80 and an LDL (bad cholesterol) of less than 70. This will decrease the risk of another heart attack or stroke. Quitting smoking is one of the best things you have done for yourself, your heart and your brain. 6. Your blood sugars in the hospital are very well controlled on a 1600 calorie carbohydrate consistent diet and we have not had to have you on any medication for diabetes. Your diet may change when you go home. If your blood sugars go up and you need medication again I would not use metformin because the weak heart and the diuretics increase risk for kidney failure and acidosis and Metformin can make this worse. Your doctor may want to consider a low dose of a medication called Amaryl (it is not processed through the kidneys and there would be less risk for acidosis.) 7. It has been a pleasure meeting you Aminata and also your family. You children love you and remember YOU ARE NOT A BURDEN.......your children love you and want to keep you around. If you or your family have any questions after you leave rehab please call me. Office: [phone] CELL: [phone] Discharge Orders/Prescriptions Prescriptions: New furosemide 40 mg Tablet 40 mg PO DAILY Qty: 30 0RF Rx Instructions: Take this in the morning atorvastatin 40 mg Tablet 40 mg PO QHS Qty: 30 0RF Rx Instructions: Take this medication at bedtime. lisinopril 5 mg Tablet 5 mg PO BID Qty: 60 0RF pantoprazole 20 mg Tablet,Delayed Release (Dr/Ec) 20 mg PO DAILY Qty: 30 0RF sertraline 50 mg Tablet 25 mg PO DAILY Qty: 30 0RF Rx Instructions: Take this medication in the morning. ipratropium bromide 42 mcg (0.06 %) spray,non-aerosol 2 spray intranasal BID PRN PRN (Reason: nasal congestion/sinus headache) Qty: 15 2RF Rx Instructions: administer into each nostril as needed for sinus headache and nasal congestion oxybutynin chloride [Ditropan XL] 5 mg tablet extended release 24hr 5 mg PO DAILY Qty: 30 0RF Rx Instructions: 1 tab at bedtime for urinary urgency/incontinence Continued levothyroxine 50 MCG tablet 88 mcg PO DAILY Label Comments: hypothyroidism Rx Instructions: Take on empty stomach [id number]-lutein [Centrum Silver] 1 EACH tablet 1 ea PO DAILY Label Comments: supplement L.acidoph, paracasei,B. lactis 1 EACH capsule 1 ea PO DAILY Label Comments: support digestive and immune health aspirin 81 MG tablet,chewable 81 mg PO BID Qty: 60 0RF Jardiance 10 mg Tablet 10 mg PO DAILY acetaminophen 500 MG tablet 650 mg PO Q6H PRN PRN (Reason: Pain 1-10) carvedilol [Coreg] 6.25 mg Tablet 6.25 mg PO BID Qty: 60 0RF Rx Instructions: Take this twice a day with food. spironolactone 25 mg Tablet 12.5 mg PO DAILY Qty: 16 0RF Rx Instructions: 1/2 a tab daily oxybutynin chloride 5 MG tablet 5 mg PO QHS Qty: 30 0RF Discontinued metformin 500 MG tablet 500 mg PO DAILY Label Comments: anti-diabetic medication atorvastatin 20 MG tablet 40 mg PO QHS Label Comments: treathigh cholesterol loperamide 2 MG capsule 2 mg PO DAILY PRN (Reason: Diarrhea) Label Comments: treat diarrhea lisinopril 5 MG tablet 5 mg PO DAILY Label Comments: high blood pressure omeprazole 20 MG tablet,delayed release (DR/EC) 20 mg PO DAILY sennosides-docusate sodium 1 TABLET tablet 2 tab PO BID Qty: 30 1RF furosemide [Lasix] 40 mg Tablet 40 mg PO BID potassium 20 mg Tablet,Chewable 20 mg PO DAILY No Action clopidogrel 75 mg Tablet 75 mg PO DAILY aspirin 81 mg Capsule,Delayed Release(Dr/Ec) 81 mg PO DAILY Referrals / Follow Up: Dr Te Ordonez [Other] - 12/31/22 2:20 pm Asael Kamara MD [Med Staff - Active Staff] - 11/15/22 1:30 pm Han Conn MD [Primary Care Provider] - 11/18/22 2:40 pm Elise Gupta NP, CREDIT CONSULTANT-C [Non-Staff -Ordering Privileges] - 11/29/22 10:30 am (Cardiology ) Disposition Disposition (needs filled in before D/C Order can be placed): Home Health Service
[2022-11-12 16:26] LABS: Bedside Glucose 167 mg/dL (74-106)
--- NOTE | 2022-11-12 16:59 | EX.DISCHREH ---
Providers Date of Admission: 10/30/22 Date of Discharge: 11/13/22 Primary Care Physician: Dr. Han Conn MD Consultations 11/11/22 13:42 Consult: Hospice / Palliative Care Routine Consulting Provider: [facility] Reason for Consult: PALLIATIVE - pulmonary hypertension, CHF, cardiomyopathy EMERGENT Consult: No MD Notified: Yes Date Notified: 11/11/22 Time Notified: 13:42 Method of Notification: Verbal Reason For Visit: CVA Diagnosis Discharge Diagnosis (1) Debility: Status: Acute Code(s): R53.81 - Other malaise Plan: Minimal at the time of DC. Ambulating with a cane. Needs additional PT/OT/ST through [facility] that has been arranged by the . (2) Ischemic stroke: Status: Acute Code(s): I63.9 - Cerebral infarction, unspecified Plan: 10/29/23....after cardiac cath, likely embolic. (3) Quadrant hemianopia: Status: Acute Code(s): H53.469 - Homonymous bilateral field defects, unspecified side (4) Right sided weakness: Status: Acute Code(s): R53.1 - Weakness (5) Cognitive dysfunction: Status: Acute Code(s): F09 - Unspecified mental disorder due to known physiological condition Plan: due to ischemic CVA (6) NSTEMI (non-ST elevated myocardial infarction): Status: Acute Code(s): I21.4 - Non-ST elevation (NSTEMI) myocardial infarction (7) Acute respiratory failure with hypoxia: Status: Resolved Code(s): J96.01 - Acute respiratory failure with hypoxia (8) Heart failure with reduced ejection fraction: Status: Resolved Code(s): I50.20 - Unspecified systolic (congestive) heart failure (9) Takotsubo syndrome: Status: Acute Code(s): I51.81 - Takotsubo syndrome Plan: suspected. EF is 20%. No hx of heart disease prior to this admission. (10) Severe pulmonary hypertension: Status: Acute Code(s): I27.20 - Pulmonary hypertension, unspecified (11) Hypoxia: Status: Chronic Code(s): R09.02 - Hypoxemia Plan: primarily with exertion - more likely than not due to severe pulmonary HTN. (12) Depression: Status: Acute Code(s): F32.A - Depression, unspecified Plan: Family is aware that Remeron was discontinued due to severe DIETRICH and to drowsiness/increased inattention. She was started on Sertraline but, the family and the pt were made aware that it takes 4-6 weeks to see a good response from an antidepressant. If in another 5 -7 days she has had no adverse side effects would increase the dose to 50 mg daily for the next month and reassess in 1 month. (13) Arteriosclerosis: Status: Acute Code(s): I70.90 - Unspecified atherosclerosis Plan: Diffuse in many vessels. Cardiac cath showed non-obstructive CAD. There is an occlusion of the L Subclavian. Has an appt to follow up with Dr. Kamara. (14) Carotid stenosis: Status: Acute Code(s): I65.29 - Occlusion and stenosis of unspecified carotid artery Plan: 50 to 60% stenosis of the right internal carotid artery and high-grade stenosis of the right and left external carotid arteries. (15) Stenosis of left subclavian artery: Status: Acute Code(s): I77.1 - Stricture of artery (16) Diabetes mellitus, type 2: Status: Acute Code(s): E11.9 - Type 2 diabetes mellitus without complications Plan: HGBA1C was 7.1 at admission. (17) Hyperlipidemia: Status: Acute Code(s): E78.5 - Hyperlipidemia, unspecified Plan: LDL at admission was 51. (18) Hypertension: Status: Chronic Code(s): I10 - Essential (primary) hypertension Plan: Well-controlled at discharge with blood pressures less than 130/80 and no hypotension or lightheadedness. (19) Rhinitis: Status: Chronic Code(s): J31.0 - Chronic rhinitis Plan: Much improved with Atrovent nasal spray 0.06% 2 sprays each nostril twice daily. (20) Hypothyroidism: Status: Acute Code(s): E03.9 - Hypothyroidism, unspecified (21) Cephalgia: Status: Resolved Code(s): R51.9 - Headache, unspecified Plan: Initially she had a severe headache that started a few days after mirtazapine was started. The mirtazapine was discontinued and the headache was improved but did not completely resolved and she continued to complain of pain over her forehead. The headache over her forehead resolved with initiation of Atrovent nasal spray. (22) Quit using tobacco in remote past: Status: Acute Code(s): Z91.89 - Other specified personal risk factors, not elsewhere classified Plan !. DC home with her dtr Nicki and her Drake. 2. Home health care for PT/OT/ST/SN. 3. No DME needs at discharge. 4. Family came in for training in how best to assist Aminata prior to DC. 5. Will follow up with pulmonary for severe pulmonary HTN. Medications at Discharge Home Medications levothyroxine 50 mcg tablet 88 mcg PO DAILY THYROID 04/01/14 qzghcdai-lwh-esjlk acid 0.4 mg-lycopene 300 mcg-lutein 250 mcg tablet (Centrum Silver) 1 ea PO DAILY VITAMIN 04/01/14 L.acidoph, paracasei,B. lactis 10 billion cell capsule 1 ea PO DAILY SUPPLEMENT 10/21/17 aspirin 81 mg chewable tablet 81 mg PO BID ##60 11/27/19 acetaminophen 500 mg tablet 650 mg PO Q6H PRN PRN Pain 1-10 10/30/22 aspirin 81 mg capsule,delayed release 81 mg PO DAILY Heart health 10/30/22 clopidogrel 75 mg tablet 75 mg PO DAILY Blood thinner 10/30/22 empagliflozin 10 mg tablet (Jardiance) 10 mg PO DAILY DM 10/30/22 atorvastatin 40 mg tablet 40 mg PO QHS #30 tabs 11/12/22 carvedilol 6.25 mg tablet (Coreg) 6.25 mg PO BID BP #60 tabs 11/12/22 furosemide 40 mg tablet 40 mg PO DAILY #30 tabs 11/12/22 lisinopril 5 mg tablet 5 mg PO BID #60 tabs 11/12/22 oxybutynin chloride 5 mg tablet 5 mg PO QHS URINATION #30 tabs 11/12/22 pantoprazole 20 mg tablet,delayed release 20 mg PO DAILY #30 tabs 11/12/22 sertraline 50 mg tablet 25 mg PO DAILY #30 tabs 11/12/22 spironolactone 25 mg tablet 12.5 mg PO DAILY Fluid retention #16 tabs 11/12/22 ipratropium bromide 42 mcg (0.06 %) nasal spray 2 spray intranasal BID PRN PRN nasal congestion/sinus headache #15 mL 11/13/22 oxybutynin chloride 5 mg tablet,extended release 24 hr (Ditropan XL) 5 mg PO DAILY #30 tabs 11/13/22 Hospital Course Operations None Procedures None Summary of Care Provided Minutes Spent on Discharge: 45 Hospital Course: ? Aminata Berry is an 82-year-old female admitted to [facility]?on 10/26/2022 for acute respiratory failure with hypoxia due to acute CHF. She had no hx of heart disease.?She was outside shovelling snow a day or 2 prior to coming to the ED and she had to stop because she was so SOB. Troponin was elevated and she was diagnosed with a NSTEMI.? Echo at admission showed a 20% ejection fraction with stage II diastolic dysfunction, LAE, mild to moderate TR, moderate AI, mild MR and severe pulmonary hypertension.? She was treated with BIPAP, Lasix infusion and fluid restriction.? A cardiac cath was done on 10/29/22 and showed severely calcified nonobstructive coronary artery disease.? That night she had acute confusion and loss of vision on the R.? 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 There was 50-60% stenosis of the R ICA and high grade stenosis of the R and L external carotid arteries.? HGBA1C was 7.1 and the LDL was 51.? She was discharged to acute rehab on ASA, Plavix and a statin.? She has no hx? of AF but, she has LAE and a severe CM.? Will need a 30 day event monitor as an OP.? Aminata had R side weakness, R quadrantopia in the Upper R lateral eye and the L upper inner field. She also had cognitive dysfunction which was new. She lives by herself. She told me at admission to rehab that she has been getting more fatigued recently than normal and that she gets SOB with exertion. She was not on oxygen at the time of admission to rehab. She has in the past been a smoker. The SOB was primarily with exertion. Ambulatory pulse ox was obtained on RA and she desaturates into the low 80's with exertion. She wore a NC with exercise on rehab and also wore it at night. Aminata had been doing a good job controlling her BS's as an OP and the HGBA1C was 7.1. The LDL was 51. When she was discharged from the acute hospital stay she was taking a statin, ASA and Plavix. She was on Metformin and this was changed to Jardiance in light of the severe atherosclerosis and HF with reduced EF. BS's and BP were well controlled while she was in rehab. Aminata experienced some depression after the stroke and was tearful with a depressed affect. She was not eating very good. She was placed on Remeron 15 mg at HS and she became very drowsy and developed a severe DIETRICH. These are both potential side effects of Remeron and therefore it was discontinued. 2 days later she was started on Sertraline 25 mg daily and at the time of DC she is tolerating this medication with no adverse SE's. The DIETRICH was much better after the discontinuation of Remeron except for a frontal DIETRICH over her forehead. She also c/o a runny and stuffy nose. She was started on Atrovent nasal spray and the DIETRICH resolved. Aminata did well in therapy. Prior to discharge she was able to ascend/descend three 4 inch steps and to 16 steps using 1 handrail at standby assist. She was able to go from sitting to standing and do a stand pivot with a straight cane at supervision level. She had ambulated up to 326 feet with a straight cane at standby assist with no loss of balance. She does become fatigued with ambulation and this is likely secondary to severe cardiomyopathy thought to be due to Takotsubo's cardiomyopathy. She was supervision/Setup for bathing, upper body dressing, lower body dressing, toileting at toilet transfer. She was SBA for tub/shower transfer. She did not meet her goal of completing high level executive functioning tasks prior to DC. This is likely multifactorial and due to not only the CVA but, to depression. She did not recover vision in the R upper out quadrant of the R eye or the upper inner visual field of the left eye prior to DC. She was discharged on 11/13/22 and was going to her dtr Nicki's house so that she will have assistance. [facility] was arranged by the [facility] and she will receive PT/OT/ST/SN care. Home oxygen was also ordered and she will wear the oxygen when eating, exercising and when sleeping. She had a event monitor ordered prior to her DC from the acute hospital stay and she will follow up with [facility] for her cardiac needs following DC from rehab. For her first visit with cardiology she will be seeing Elise LOPEZ on 11/19/22 at 10:30. She also has upcoming appts with Dr. Asael Kamara on 11/15/22 at 1:30, Dr. Te Ordonez on 12/31/22 at 2:[address] Conn on 11/18/22 at 2:40 PM. I recommended she follow up with pulmonary medicine for the hypoxia and severe pulmonary HTN as well. Physical Exam Const alert, oriented x3 and no apparent distress General Appearance: cooperative Neck supple General: trachea midline Resp normal respiratory effort and normal air movement Resp Narrative: Denies orthopnea or shortness of breath at rest. She gets short of breath with exertion but the oxygen helps. She has a few coarse crackles in the right base but is otherwise clear to auscultation. Effort and Inspection: Negative for tachypneic Auscultation: diminished lung sounds Cardio regular rate, regular rhythm, no murmurs, no rub and no gallops Cardio Narrative: No ectopy GI normal to inspection, nondistended, normoactive bowel sounds, soft to palpation and non-tender Extremity no calf tenderness Extremity Narrative: PEGGY hose are in place. General Extremity: Negative for edema Skin Skin Narrative: Warm and dry General Skin Exam: no breakdown Rashes: no rashes Neuro CN's II-XII intact bilaterally Neuro Narrative: Still with some mild weakness of the RUE. No LOB with a straight cane at SBA, no sensory deficit, still with quadrantopia. Still with difficulty with reading due to the quadrantopia. Still with mild R side neglect. Psych cooperative, speech normal, denies hallucinations, denies homicidal ideation and denies suicidal ideation Psych Narrative: Mood is depressed but, she is making jokes today and seems to be a little better with regard to the depression. Appearance: appropriate Attitude: No agitated Activity / Motor Behavior: Negative for restless Weight / BMI Weight Weight: 172 lb 9.951 oz ABG / Lab / Microbiology Data Result Diagrams: 11/12/22 05:00 11/12/22 04:48 Laboratory: Laboratory Results - last 24 hr 11/12/22 04:48: Sodium 138, Potassium 4.4, Chloride 103, Carbon Dioxide 28.0, Anion Gap 7, BUN 24 H, Creatinine 0.92, Estim Creat Clear Calc 39.31, Est GFR (MDRD) Af Amer 75, Est GFR (MDRD) Non-Af 62, BUN/Creatinine Ratio 26.2 H, Glucose 135 H, Calcium 9.3, Magnesium 2.0 11/12/22 05:00: WBC 8.4, RBC 4.01 L, Hgb 12.2, Hct 38.3, MCV 95.5, MCH 30.4, MCHC 31.9 L, RDW Std Deviation 45.3 H, RDW Coeff of [place]on 12.8, Plt Count 280, MPV 10.6 11/12/22 06:14: POC Glucose 144 H 11/12/22 16:01: POC Glucose 167 H Indicators for Scoring Admitted with or Primary Diagnosis of CVA/Stroke: Yes Hx of CVA/Stroke: No Modified Tracie Score MRS Score at time of Evaluation: 2-Slight disability NIHSS NIHSS 1a. Level of Consciousness: Alert; keenly responsive 1b. LOC Questions: Answers BOTH questions correctly. 1c. LOC Commands: Performs both tasks correctly. 2. Best Gaze: Normal 3. Visual: Partial hemianopia (quadrantopia affecting the upper outer quadrant of the R eye and the upper inner Quadrant of the left eye.) 4. Facial Palsy: Normal symmetrical movements 5a. Left Arm: No drift; arm holds 90 (or 45) degrees for full 10 seconds 5b. Right Arm: No drift; arm holds 90 (or 45) degrees for full 10 seconds 6a. Left Leg: No drift; leg holds 30-degree position for full 5 seconds 6b. Right Leg: No drift; leg holds 30-degree position for full 5 seconds 7. Limb Ataxia: Absent 8. Sensory: Normal; no sensory loss 9. Best Language: No aphasia; normal 10. Dysarthria: Normal Total: 1 Stroke Questions Stroke Team Activated: No D/C Instructions Discharge Diet: - (1600 calorie, car consistent, low fat and low salt diet. ) Weight Bearing Status: Full weight bearing Keep extremity elevated above heart level: Legs Additional Activity Instructions: If you get tired or short of breath walking, sit down and rest for a few minutes. Call your doctor if you observe: Fever of 101 or Higher, Numbness or Tingling, Shortness of breath, Dizziness, Fainting spells, Swelling in the ankles, Chest pain, Increased palpitations (irregular heartbeat) and Calf discomfort Pending Tests Upon Discharge: none Please Follow Up With: Han Conn MD When: 11/18/22 at 2:40 PM. Meaningful Use Info Meaningful Use Diagnoses (Choose all that apply): Ischemic CVA CVA Therapy Assessed for PT,OT and/or ST?: Yes Ischemic Stroke Antithrombotic order at d/c?: Yes Dx of Atrial fib/flutter?: No Anticoagulant at discharge?: No Reason anticoagulant not ordered: Treatment not Indicated Statins at discharge?: Yes Primary Dx Acute Ischemic CVA?: Yes IV tPA ordered during stay?: No Reason IV t-PA not ordered: Treatment not Indicated Discharge Plan Admission Admit Date/Time: 10/30/22 13:12 Primary Reason for Your Visit: Debility due to stroke following left heart cath. Attending Provider: Magdalene Michael Primary Care Provider: Han Conn Consulting Providers: Chris Izquierdo Chi ; Shauna Arreola ; Edgar Yuan ; Nisa Urbina ; Estella Feldman ; Mariah Berry CLIENT RELATIONS ASSOCIATE Instructions Patient Instructions: Heart Failure and Depression, Heart Failure Flare Up Signs, Heart Failure: Tracking Your Weight, Symptoms of Stroke, Cardiomyopathy Dc, Pulmonary Hypertension, Takotsubo Cardiomyopathy Additional Instructions / Restrictions: 1. You had a heart attack while shoveling snow because this activity placed too much strain on your heart and lungs. When you had the heart attack your heart went intoshock and was not able to pump sufficient blood out of the heart so the blood/fluid backed up into your lungs and made you very short of breath. This is called congestive heart failure or CHF. You had sudden heart failure and we think it was due to Takotsubo's cardiomyopathy (read the literature I gave you which explains what this is) Heart failure can also come on gradually and the symptoms can be increased shortness of breath with walking, swelling in the ankles, shortness of breath when you are lying down in bed, waking up at night short of breath, weight increase and increased fatigue. The goal of treating heart failure is to keep you out of heart failure and out of the hospital. You can help us with this task by weighing yourself every morning when you get out of bed with a digital scale, after urinating and before eating with no clothes on. Keep a record of your weights. If your weight goes up by a pound or more 3 days in a row OR increases by 5 lbs or more in a week it means you are retaining water. This can lead to CHF. CAll your doctor or palliative care if this happens and also cut back on the amount of salt you are eating and take an extra Lasix in the afternoon for 1-2 days to get the weight back down to baseline. Weigh yourself the first morning you are home and that will be your baseline weight. If you keep your fluid intake below 45 ounces a day I think you will be fine......IF you limit your salt intake. Salt makes your body retain fluid. 2. You have pulmonary hypertension. This means the blood pressure is too high in your lungs and this makes it hard for the blood to get oxygenated in the lungs. When you increase the work the heart has to do, for instance by exerting your self, the problem gets worse. You need oxygen when you exert yourself and you also need to wear the oxygen when eating and sleeping. When you eat the blood supply gets diverted to the GI tract and it takes oxygen away from the heart and lungs so wear your oxygen when you are eating. You do not have to wear the oxygen when you are sitting watching TV or talking to people. Oxygen can dry your nose out so keep a bottle of nasal saline at home to use as needed. You have an appt with the lung doctor that has been scheduled for you. He will probably want to do some pulmonary function tests on you. There is now some effective treatment for pulmonary hypertension. 3. I think that your heart will get stronger over the next 6-12 months and the cardilogist will want to repeat the ECHO (ultrasound of the heart) at some point in the future. IF the heart gets stronger the pulmonary hypertension may improve. 4. Depression is common in patients with heart failure and with stroke patients. We tried you on Remeron (Mirtazapine) and you got sleepy and a severe head ache. You are now on a antidepressant called Sertraline (Zoloft) and you are tolerating it much better. I started you on the lowest dose. Sometimes as you age the lowest dose is effective......if after a couple weeks you are not feeling better emotionally then you may to increase the dose from 25mg to 50 mg.......you can discuss this with your PCP. 5. Your BP, diabetes and cholesterol were pretty well controlled when you came to the hospital. GOOD JOB!. You should have a HGBA1C of 7 or under, a BP of less than 130/80 and an LDL (bad cholesterol) of less than 70. This will decrease the risk of another heart attack or stroke. Quitting smoking is one of the best things you have done for yourself, your heart and your brain. 6. Your blood sugars in the hospital are very well controlled on a 1600 calorie carbohydrate consistent diet and we have not had to have you on any medication for diabetes. Your diet may change when you go home. If your blood sugars go up and you need medication again I would not use metformin because the weak heart and the diuretics increase risk for kidney failure and acidosis and Metformin can make this worse. Your doctor may want to consider a low dose of a medication called Amaryl (it is not processed through the kidneys and there would be less risk for acidosis.) 7. It has been a pleasure meeting you Aminata and also your family. You children love you and remember YOU ARE NOT A BURDEN.......your children love you and want to keep you around. If you or your family have any questions after you leave rehab please call me. Office: [phone] CELL: [phone] Discharge Orders/Prescriptions Prescriptions: New furosemide 40 mg Tablet 40 mg PO DAILY Qty: 30 0RF Rx Instructions: Take this in the morning atorvastatin 40 mg Tablet 40 mg PO QHS Qty: 30 0RF Rx Instructions: Take this medication at bedtime. lisinopril 5 mg Tablet 5 mg PO BID Qty: 60 0RF pantoprazole 20 mg Tablet,Delayed Release (Dr/Ec) 20 mg PO DAILY Qty: 30 0RF sertraline 50 mg Tablet 25 mg PO DAILY Qty: 30 0RF Rx Instructions: Take this medication in the morning. ipratropium bromide 42 mcg (0.06 %) spray,non-aerosol 2 spray intranasal BID PRN PRN (Reason: nasal congestion/sinus headache) Qty: 15 2RF Rx Instructions: administer into each nostril as needed for sinus headache and nasal congestion oxybutynin chloride [Ditropan XL] 5 mg tablet extended release 24hr 5 mg PO DAILY Qty: 30 0RF Rx Instructions: 1 tab at bedtime for urinary urgency/incontinence Continued levothyroxine 50 MCG tablet 88 mcg PO DAILY Label Comments: hypothyroidism Rx Instructions: Take on empty stomach vjirbfqe-fxq-JX-lycopen-lutein [Centrum Silver] 1 EACH tablet 1 ea PO DAILY Label Comments: supplement L.acidoph, paracasei,B. lactis 1 EACH capsule 1 ea PO DAILY Label Comments: support digestive and immune health aspirin 81 MG tablet,chewable 81 mg PO BID Qty: 60 0RF Jardiance 10 mg Tablet 10 mg PO DAILY acetaminophen 500 MG tablet 650 mg PO Q6H PRN PRN (Reason: Pain 1-10) carvedilol [Coreg] 6.25 mg Tablet 6.25 mg PO BID Qty: 60 0RF Rx Instructions: Take this twice a day with food. spironolactone 25 mg Tablet 12.5 mg PO DAILY Qty: 16 0RF Rx Instructions: 1/2 a tab daily oxybutynin chloride 5 MG tablet 5 mg PO QHS Qty: 30 0RF Discontinued metformin 500 MG tablet 500 mg PO DAILY Label Comments: anti-diabetic medication atorvastatin 20 MG tablet 40 mg PO QHS Label Comments: treathigh cholesterol loperamide 2 MG capsule 2 mg PO DAILY PRN (Reason: Diarrhea) Label Comments: treat diarrhea lisinopril 5 MG tablet 5 mg PO DAILY Label Comments: high blood pressure omeprazole 20 MG tablet,delayed release (DR/EC) 20 mg PO DAILY sennosides-docusate sodium 1 TABLET tablet 2 tab PO BID Qty: 30 1RF furosemide [Lasix] 40 mg Tablet 40 mg PO BID potassium 20 mg Tablet,Chewable 20 mg PO DAILY No Action clopidogrel 75 mg Tablet 75 mg PO DAILY aspirin 81 mg Capsule,Delayed Release(Dr/Ec) 81 mg PO DAILY Referrals / Follow Up: Dr Te Ordonez [Other] - 12/31/22 2:20 pm Asael Kamara MD [Med Staff - Active Staff] - 11/15/22 1:30 pm Han Conn MD [Primary Care Provider] - 11/18/22 2:40 pm Elise Gupta CLIENT RELATIONS ASSOCIATE, CLIENT RELATIONS ASSOCIATE-C [Non-Staff -Ordering Privileges] - 11/29/22 10:30 am (Cardiology ) Disposition Disposition (needs filled in before D/C Order can be placed): Home Health Service Charges/Coding Visit Charges Inpatient E&M: 31812 Disch Hosp >30min
[2022-11-12] MEDS: Oxybutynin 5 MG Tablet PO (20:42)
[2022-11-12] MEDS: Atorvastatin Calcium 40 MG Tablet PO (20:43)
[2022-11-12 22:00] VITALS: BP 152/67; PULSE 67; RESP 18; TEMP 36.3; O2SAT 94
[2022-11-13] MEDS: Levothyroxine 88 MCG Tablet PO (05:41)
[2022-11-13 06:50] LABS: Bedside Glucose 141 mg/dL (74-106)
[2022-11-13 08:09] VITALS: BP 138/62; PULSE 60; RESP 18; TEMP 36.5; O2SAT 94
[2022-11-13] MEDS: Pantoprazole Sodium 20 MG Tablet PO (08:22)
[2022-11-13] MEDS: Furosemide 40 MG Tablet PO (08:22)
[2022-11-13] MEDS: Empagliflozin 10 MG Tablet PO (08:22)
[2022-11-13] MEDS: Carvedilol 6.25 MG Tablet PO (08:22)
[2022-11-13] MEDS: Aspirin E.C. 81 MG Tablet PO (08:22)
[2022-11-13] MEDS: Lisinopril 5 MG Tablet PO (08:22)
[2022-11-13] MEDS: Sertraline 50 MG Tablet 25 MG PO (08:23)
[2022-11-13] MEDS: Spironolactone 25 MG Tablet 12.5 MG PO (08:24)
[2022-11-13] MEDS: Ipratropium Bromide 0.06% NASAL SPRAY 2 SPRAY NASAL (08:26)
[2022-11-13] MEDS: Clopidogrel Bisulfate 75 MG Tablet PO (08:35)
[2022-11-13 11:59] VITALS: BP 138/62; PULSE 60; RESP 18; TEMP 36.5; O2SAT 94
--- NOTE | 2022-11-13 12:00 | NURSING ---
Addendum entered by Manjula Martinez 11/13/22 12:02: daughter in law to make a pulmonary appointment for patient. Original Note: Patient and daughter in law aware of dc instruct and verbalization of understanding.
== END 2022-11-13 12:02 | disposition home health service (06) | DRG 56 ==
PROVIDERS: Admitting Provider Family Medicine Geriatric Medicine; PCP Family Medicine; Visit Provider Internal Medicine
DX: I69.351 Hemiplegia and hemiparesis following cerebral infarction affecting right dominant side (principal); I21.4 Non-ST elevation (NSTEMI) myocardial infarction; I51.81 Takotsubo syndrome; I50.22 Chronic systolic (congestive) heart failure; H53.461 Homonymous bilateral field defects, right side; I11.0 Hypertensive heart disease with heart failure; E11.9 Type 2 diabetes mellitus without complications; E78.5 Hyperlipidemia, unspecified; E03.9 Hypothyroidism, unspecified; F41.9 Anxiety disorder, unspecified; I25.10 Atherosclerotic heart disease of native coronary artery without angina pectoris; K21.9 Gastro-esophageal reflux disease without esophagitis; I69.398 Other sequelae of cerebral infarction; N32.81 Overactive bladder; Z87.891 Personal history of nicotine dependence; Z79.84 Long term (current) use of oral hypoglycemic drugs; F32.A Depression, unspecified; Z79.02 Long term (current) use of antithrombotics/antiplatelets; Z79.899 Other long term (current) drug therapy; Z79.890 Hormone replacement therapy
CPT/HCPCS: 36415; 71046; 80048; 80053; 82962; 83735; 83880; 84100; 85027; 92507; 92523; 97110; 97112; 97116; 97129; 97130; 97162; 97165; 97530; 97535; 97802; 97803; J7030; A4216

== ENCOUNTER → 2023-01-27 | Outpatient (CLI) | payer MEDICARE, OTHER, SELFPAY ==
--- NOTE | 2023-01-27 12:59 | ECHOLC_ITS ---
Reason For Study: HFrEF, Takotsubo Procedure This was a limited 2D transthoracic echocardiogram. The study was technically difficult. Contrast injection was performed. Exam performed in department. Left Ventricle Normal size and thickness. The left ventricular ejection fraction is 55 %. Right Ventricle Normal RV size. Atria The left and right atria are normal. Mitral Valve Mild diffuse mitral valve thickening. There is Moderate focal posterior mitral annular calcification. Tricuspid Valve Normal tricuspid valve. Aortic Valve Aortic sclerosis, no stenosis. Mild-Moderate (1-2+) aortic valve insufficiency. Pulmonic Valve The pulmonic valve is not well visualized. Great Vessels Mildly dilated aortic root. Pericardium/Pleural Trivial pericardial effusion. Medication 22 gauge I.V. with prn adaptor inserted into right arm. Diluted definity 3ml given slow IV push to enhance endocardial definition. MMode/2D Measurements & Calculations LVIDd: 4.5 cm IVSd: 0.93 cm Ao root diam: 3.8 cm LVIDs: 3.7 cm LVPWd: 1.2 cm FS: 18.8 % LVAd ap4: 27.9 cm2 SV(MOD-sp4): 46.6 ml SV(sp4-el): 48.3 ml LVLd ap4: 7.1 cm EDV(MOD-sp4): 91.1 ml EDV(sp4-el): 93.0 ml LVAs ap4: 17.7 cm2 LVLs ap4: 5.9 cm ESV(MOD-sp4): 44.5 ml ESV(sp4-el): 44.7 ml EF(MOD-sp4): 51.1 % EF(sp4-el): 51.9 % Time Measurements MV dec time: 0.54 sec Doppler Measurements & Calculations MV E max keo: 51.1 cm/sec Lat Peak E' Keo: 6.3 cm/sec Med Peak E' Keo: 6.2 cm/sec MV A max keo: 110.4 cm/sec E/E' lat: 8.2 E/E' med: 8.3 MV E/A: 0.46 ECHO/Echo Limited w/Contrast Interpretation Summary This was a limited 2D transthoracic echocardiogram. The left ventricular ejection fraction is 55 %. Mild diffuse mitral valve thickening. There is Moderate focal posterior mitral annular calcification. Aortic sclerosis, no stenosis. Mild-Moderate (1-2+) aortic valve insufficiency. Mildly dilated aortic root. Ordering Physician: Elise Gupta Referring Physician: MD Fabien Han Performed By: James Carpenter RCS
== END | disposition home or self-care (01) ==
PROVIDERS: PCP Family Medicine; Referring Provider Nurse Practitioner Gerontology; Visit Provider Nurse Practitioner Gerontology
DX: I51.81 Takotsubo syndrome (principal); I50.20 Unspecified systolic (congestive) heart failure
CPT/HCPCS: 93308; Q9957; A4216; C8924

== ENCOUNTER → 2023-01-31 | Outpatient (CLI) | payer MEDICARE, OTHER, SELFPAY ==
[2023-01-31 12:40] VITALS: PULSE 65; PULSE 66; PULSE 82; PULSE 84; PULSE 85; O2SAT 89; O2SAT 90; O2SAT 92; O2SAT 93; O2SAT 94
--- NOTE | 2023-02-01 12:56 | PCM.PSN.6M ---
PSN 6 Minute Walk Test 6 Minute Walk Test 6 Minute Walk Test: 6 Minute Walk Test PSN:6-Minute Walk Test Start: 01/31/23 13:18 Freq: Status: Active Protocol: RESP.6MINW Document 01/31/23 12:40 [facility] (Rec: 01/31/23 13:20 [place] [id number]) 6 Minute Walk Test Date Performed 01/31/23 Time Performed 12:30 Height 5 ft 5 in Weight: 164 lb Weight in Pounds 164.[address]: Fabien Duarte Assistive device used: None Pre-test Oxygen Delivery Method Room Air Pulse Ox (%) 94 Pulse Rate (60-100 beats/min) 65 Dyspnea Alfonso Scale (0-10) 0 Exertion Alfonso Scale (6-20) 6 1st minute Oxygen Delivery Method Room Air Pulse Ox (%) 92 Pulse Rate (60-100 beats/min) 82 2nd minute Oxygen Delivery Method Room Air Pulse Ox (%) 90 Pulse Rate (60-100 beats/min) 82 3rd minute Oxygen Delivery Method Room Air Pulse Ox (%) 89 Pulse Rate (60-100 beats/min) 85 4th minute Oxygen Delivery Method Room Air Pulse Ox (%) 90 Pulse Rate (60-100 beats/min) 85 5th minute Oxygen Delivery Method Room Air Pulse Ox (%) 89 Pulse Rate (60-100 beats/min) 84 6th minute Oxygen Delivery Method Room Air Pulse Ox (%) 90 Pulse Rate (60-100 beats/min) 84 Dyspnea Alfonso Scale (0-10) 2 Exertion Alfonso Scale (6-20) 13 Post-test Oxygen Delivery Method Room Air Pulse Ox (%) 93 Pulse Rate (60-100 beats/min) 66 Full Laps Walked 12 Partial Lap, Number of Tiles Walked 8 Total Distance Walked (ft) 716 Interpretation Interpretation: The patient ambulated 716 feet over the course of 6 minutes beginning on room air without assistive devices. Pretesting oxygen saturation was noted to be 94% on room air. With ambulation, the emiliana oxygen saturation was 89%. This represents a significant exertional oxygen desaturation, consistent with a pulmonary limitation to exercise tolerance. Recommendations Recommendations: There is no indication for the use of supplemental oxygen at this time. However, close interval follow-up is recommended, given the degree of oxygen desaturation noted during this study.
== END | disposition home or self-care (01) ==
LOC: PSN 12:25
PROVIDERS: PCP Family Medicine; Referring Provider Internal Medicine Critical Care Medicine; Visit Provider Internal Medicine Critical Care Medicine
DX: I27.20 Pulmonary hypertension, unspecified (principal)
CPT/HCPCS: 94618

== ENCOUNTER → 2023-03-21 | Outpatient (CLI) | payer MEDICARE, OTHER, SELFPAY ==
[2023-03-21 12:44] VITALS: PULSE 60; PULSE 64; PULSE 69; PULSE 71; PULSE 72; PULSE 73; PULSE 74; PULSE 78; O2SAT 89; O2SAT 90; O2SAT 91; O2SAT 92; O2SAT 94; O2SAT 96
--- NOTE | 2023-03-22 05:35 | PCM.PSN.6M ---
PSN 6 Minute Walk Test 6 Minute Walk Test 6 Minute Walk Test: 6 Minute Walk Test PSN:6-Minute Walk Test Start: 03/21/23 12:44 Freq: Status: Active Protocol: RESP.6MINW Document 03/21/23 12:44 [facility] (Rec: 03/21/23 12:47 [facility] [id number]) 6 Minute Walk Test Date Performed 03/21/23 Time Performed 12:30 Height 5 ft 4 in Weight: 77.111 kg Weight in Pounds 170.[address]: Dr Duarte Assistive device used: None Pre-test Oxygen Delivery Method Room Air Pulse Ox (%) 94 Pulse Rate (60-100 beats/min) 60 Dyspnea Alfonso Scale (0-10) 0 Exertion Alfonso Scale (6-20) 6 1st minute Oxygen Delivery Method Room Air Pulse Ox (%) 91 Pulse Rate (60-100 beats/min) 72 2nd minute Oxygen Delivery Method Room Air Pulse Ox (%) 90 Pulse Rate (60-100 beats/min) 71 3rd minute Oxygen Delivery Method Room Air Pulse Ox (%) 90 Pulse Rate (60-100 beats/min) 74 4th minute Oxygen Delivery Method Room Air Pulse Ox (%) 89 Pulse Rate (60-100 beats/min) 78 5th minute Oxygen Delivery Method Room Air Pulse Ox (%) 90 Pulse Rate (60-100 beats/min) 69 6th minute Oxygen Delivery Method Room Air Pulse Ox (%) 92 Pulse Rate (60-100 beats/min) 73 Dyspnea Alfonso Scale (0-10) 0 Exertion Alfonso Scale (6-20) 11 Post-test Oxygen Delivery Method Room Air Pulse Ox (%) 96 Pulse Rate (60-100 beats/min) 64 Full Laps Walked 13 Partial Lap, Number of Tiles Walked 40 Total Distance Walked (ft) 807 Interpretation Interpretation: The patient was able to ambulate 807 feet over the course of 6 minutes on room air with no assistive devices or breaks. The patient did experience significant desaturation from a baseline of 94% to as low as 89%, but no significant tachycardia was noted. These findings are consistent with a respiratory limitation exercise tolerance. Recommendations Recommendations: No supplemental oxygen is indicated at this time. However, patient will need to be followed closely given level of desaturation.
== END | disposition home or self-care (01) ==
LOC: PSN 12:28
PROVIDERS: PCP Family Medicine; Referring Provider Internal Medicine Critical Care Medicine; Visit Provider Internal Medicine Critical Care Medicine
DX: I27.20 Pulmonary hypertension, unspecified (principal)
CPT/HCPCS: 94618

== ENCOUNTER 2023-08-11 10:01 | Emergency (ER) | payer MEDICARE, OTHER, SELFPAY ==
[2023-08-11 10:02] VITALS: BP 108/72; PULSE 79; RESP 18; TEMP 36.6; O2SAT 97; BMI 30.5
--- NOTE | 2023-08-11 10:39 | RAD_ITS ---
HISTORY: pain. TECHNIQUE: XR Spine Lumbar 2 or 3 Views. COMPARISON: None. FINDINGS: VERTEBRAE: Vertebral body heights preserved. Degenerative changes of the posterior elements. ALIGNMENT: 3 to 4 mm retrolisthesis of L2-3 and L3-4. INTERVERTEBRAL DISCS: Mild degenerative endplate changes at multiple levels. RAD/Lumbar Spine 2 or 3 Views IMPRESSION: No acute fracture or dislocation identified in the lumbar spine. Multilevel degenerative change. Mild retrolisthesis of L2-3 and L3-4. Electronically Signed: Erin Cooley MD at 11:40 EDT ,
--- NOTE | 2023-08-11 10:41 | ED.VIS.BACK ---
HPI History of Present Illness Chief Complaint: Back Narrative Narrative: 83-year-old female presenting with back pain. She states she was bent over and coughed and noticed acute back pain. She states that she feels like it is her whole back. No loss of bladder or bowel control. No saddle anesthesia or paresthesia. Patient eating and drinking normally. She making normal urine and stool. She denies fevers or chills. She is able to ambulate but states it is difficult due to pain. She has been having the symptoms for about 2 weeks. She has not seen a primary care provider since then. No direct trauma. [facility] Medical History Acute respiratory failure with hypoxia Aortic regurgitation Arteriosclerosis CAD (coronary artery disease) Cardiomyopathy Carotid stenosis CVA (cerebral vascular accident) Diabetes Diabetes mellitus, type 2 Dyslipidemia GERD (gastroesophageal reflux disease) Grade II diastolic dysfunction Heart failure with reduced ejection fraction History of alcoholism History of tobacco abuse HTN (hypertension) Hyperlipidemia Hyperlipidemia Hypertension Hypothyroidism Hypothyroidism Ischemic stroke Left atrial enlargement NSTEMI (non-ST elevated myocardial infarction) NSTEMI (non-ST elevated myocardial infarction) PAD (peripheral artery disease) Quit using tobacco in remote past Stenosis of left subclavian artery Takotsubo syndrome Tricuspid regurgitation Urinary incontinence Home Medications stnqnnac-olh-jware acid 0.4 mg-lycopene 300 mcg-lutein 250 mcg tablet (Centrum Silver) 1 ea PO DAILY VITAMIN 04/01/14 [History Last Taken 11/07/17 08:00 1] L.acidoph, paracasei,B. lactis 10 billion cell capsule 1 ea PO DAILY SUPPLEMENT 10/21/17 [History Last Taken 11/07/17 08:00 1] digestive enzymes 1 tab PO DAILY supplement 10/26/22 [History Last Taken 10/25/22] levothyroxine 88 mcg tablet 88 mcg PO DAILY thyroid 10/26/22 [History Last Taken 10/25/22] lisinopril 5 mg tablet 5 mg PO DAILY 10/26/22 [History Last Taken 10/25/22] oxybutynin chloride 5 mg tablet,extended release 24 hr 5 mg PO DAILY Check with primary doctor 10/26/22 [History Last Taken 10/25/22] aspirin 81 mg capsule,delayed release 81 mg PO DAILY Heart health 10/30/22 [History Last Taken Unknown] carvedilol 6.25 mg tablet 6.25 mg PO BID #0 tabs 10/30/22 [Rx Last Taken Unknown] atorvastatin 40 mg tablet 40 mg PO QHS #30 tabs 11/12/22 [Rx Last Taken Unknown] sertraline 50 mg tablet 25 mg (1/2 x 50 mg) PO DAILY #30 tabs 11/12/22 [Rx Last Taken Unknown] furosemide 40 mg tablet 40 mg PO DAILY 11/29/22 [History Last Taken Unknown] glimepiride 1 mg tablet 1 mg PO DAILY 02/07/23 [History Last Taken Unknown] pantoprazole 40 mg tablet,delayed release (Protonix) 20 mg PO DAILY 02/28/23 [History Last Taken Unknown] hydrocodone-acetaminophen 5-325mg 5mg-325mg 1 tab PO Q6H 3 days #12 TABLETS 08/11/23 [Rx Last Taken Unknown] lidocaine 5 % topical patch (Lidoderm) 1 patch topical DAILY PRN pain #15 ea 08/11/23 [Rx Last Taken Unknown] Allergy/AdvReac Type Severity Reaction Status Date / Time Penicillins AdvReac Diarrhea Verified 08/11/23 10:02 Family History Other Anxiety CVA (cerebral vascular accident) Depression Hypertension Suicide Surgical History History of knee replacement History of knee replacement Social History household members: none housing: house Smoking Status: Former smoker alcohol intake: former substance use type: does not use ROS ROS ED Constitutional Constitutional ED: Denies chills, fever(s) or sweats Eyes Eyes: Denies blurry vision or change in vision ENT ENT ED: Denies ear pain or sore throat Cardiovascular Cardiovascular: Denies chest pain, palpitations or racing heartbeat Respiratory/Chest Respiratory/Chest: Denies cough, dyspnea or sputum Gastrointestinal Gastrointestinal: Denies abdominal pain, constipation, diarrhea, nausea or vomiting Genitourinary Genitourinary ED: Denies dysuria, hematuria or urinary frequency Musculoskeletal Musculoskeletal: Reports back pain; Denies arthralgias, myalgias or neck pain Integumentary Denies abscess, Abrasions or rash Neurologic Neurologic: Denies headache(s), paresthesias or weakness Psychiatric Psychiatric: Denies anxiety, depression, suicidal ideation or suicidal thoughts Endocrine Endocrinology: Denies polydipsia or polyuria EXAM Physical Exam Const Vital Signs: 08/11/23 10:02 Temperature 97.9 F Temperature Source Temporal Pulse Rate 79 Respiratory Rate 18 Blood Pressure 108/72 Blood Pressure Mean 84 Pulse Ox 97 Oxygen Delivery Method Room Air Positive well nourished General Appearance ED: NAD HEENT Reports moist mucous membranes Eyes PERRL and EOMs intact bilaterally Neck no lymphadenopathy Resp normal respiratory effort Cardio regular rate and regular rhythm GI normal to inspection, nondistended, normoactive bowel sounds Back/Spine Back/Spine Narrative: Tenderness to palpation over the T12-L1 region. No obvious midline deformity or step-off. Patient able to get from seated to standing and walking with some difficulty but is able to have a stable gait Extremity normal to inspection Neuro oriented x3 and no sensory deficits noted Psych mental status grossly normal Skin no rashes or lesions noted MDM MDM MDM Narrative Medical decision making narrative: Patient with back pain after sneezing while bent over. Differential includes thoracic strain, lumbar strain, compression fracture. Patient given a Lidoderm patch and Quin[place] as she states she is tolerated this before. Will obtain images of the thoracic and lumbar spine. X-rays of the lumbar and thoracic spine show degenerative changes but also an age-indeterminate T9 compression fracture on my interpretation. The radiologist interprets this and agrees and states some mild inflammation or infection in the lungs although the patient does not have any respiratory complaints. Her vital signs are stable she is afebrile. She is not coughing or short of breath. I will give her Quincy for pain as she seemed to tolerate it well here as well as Lidoderm patches. She has follow-up with her primary care physician next week and I gave her follow-up with orthopedic spine. Impression: 1. T9 compression deformity 2. Degenerative disc disease Radiography Diagnostic Testing: Clinical Impression(s) from Imaging Studies Lumbar Spine X-Ray 08/11/23 10:39 IMPRESSION: No acute fracture or dislocation identified in the lumbar spine. Multilevel degenerative change. Mild retrolisthesis of L2-3 and L3-4. Electronically Signed: Erin Cooley MD at 11:40 EDT , Thoracic Spine X-Ray 08/11/23 11:00 IMPRESSION: Age-indeterminate mild T9 compression fracture. Mild inflammation or infection in the lungs Electronically Signed: Erin Cooley MD at 11:39 EDT Reading Location ID and State: [facility] / [place] Tel , Service support , Discharge Plan Triage Chief Complaint: Back ED Provider: Jose D Bennett Dx/Rx/DC Orders Instructions: Compression Fx Prescriptions: New hydrocodone-acetaminophen 5-325 mg tablet 1 tab PO Q6H 3 Days Qty: 12 0RF lidocaine [Lidoderm] 5 % adhesive patch,medicated 1 patch topical DAILY PRN (Reason: pain) Qty: 15 0RF Rx Instructions: leave on most painful area for up to 12 hrs No Action furosemide 40 mg tablet 40 mg PO DAILY pantoprazole [Protonix] 40 mg tablet,delayed release (DR/EC) 20 mg PO DAILY glimepiride 1 mg tablet 1 mg PO DAILY Patient Comments: Take 1 tablet by mouth daily with breakfast. [id number]-JH-lycopen-lutein [Centrum Silver] 1 EACH tablet 1 ea PO DAILY Patient Comments: supplement L.acidoph, paracasei,B. lactis 1 EACH capsule 1 ea PO DAILY Patient Comments: support digestive and immune health levothyroxine 88 mcg tablet 88 mcg PO DAILY Patient Comments: Take 1 tablet by mouth once daily. Take on empty stomach. For Thyroid lisinopril 5 mg tablet 5 mg PO DAILY Patient Comments: Take 1 tablet by mouth once daily. To prevent kidney failure digestive enzymes Tablet 1 tab PO DAILY oxybutynin chloride 5 mg Tablet Extended Release 24hr 5 mg PO DAILY carvedilol 6.25 mg Tablet 6.25 mg PO BID Qty: 0 0RF aspirin 81 mg Capsule,Delayed Release(Dr/Ec) 81 mg PO DAILY atorvastatin 40 mg Tablet 40 mg PO QHS Qty: 30 0RF Rx Instructions: Take this medication at bedtime. sertraline 50 mg Tablet 25 mg PO DAILY Qty: 30 0RF Rx Instructions: Take this medication in the morning. Primary Care Provider: Han Conn Referrals: Kurt Viveros DO [Med Staff - Active Staff] - 3-5 Days Han Conn MD [Primary Care Provider] - Disposition Disposition: Home, Self Care
[2023-08-11] MEDS: Lidocaine 5% Patch 1 PATCH TOPICAL (10:47)
[2023-08-11] MEDS: HYDROcodone Bitartrate/Apap 5/325 Tablet PO (10:48)
--- NOTE | 2023-08-11 11:00 | RAD_ITS ---
HISTORY: back pain. TECHNIQUE: XR Spine Thoracic 3 Views. COMPARISON: Chest 11/05/2022. FINDINGS: VERTEBRAE: Mild T9 compression fracture, not seen on prior. Degenerative endplate changes with osteophytes. ALIGNMENT: No significant anterior or posterior subluxation. INTERVERTEBRAL DISCS: Degenerative changes at multiple levels. SOFT TISSUES: Tortuous and ectatic aorta with calcified mediastinal and left hilar lymph nodes.. Mild opacities in the right mid and left lower lung RAD/Thoracic Spine 3 Views IMPRESSION: Age-indeterminate mild T9 compression fracture. Mild inflammation or infection in the lungs Electronically Signed: Erin Cooley MD at 11:39 EDT ,
[2023-08-11 12:48] VITALS: BP 176/77; PULSE 68; RESP 16; O2SAT 94
== END 2023-08-11 12:50 | disposition home or self-care (01) ==
PROVIDERS: Emergency Provider Student in an Organized Health Care Education/Training Program; PCP Family Medicine; Visit Provider Student in an Organized Health Care Education/Training Program
DX: M48.54XA Collapsed vertebra, not elsewhere classified, thoracic region, initial encounter for fracture (principal); I11.0 Hypertensive heart disease with heart failure; I50.22 Chronic systolic (congestive) heart failure; E11.9 Type 2 diabetes mellitus without complications; E78.5 Hyperlipidemia, unspecified; Z87.891 Personal history of nicotine dependence; I25.10 Atherosclerotic heart disease of native coronary artery without angina pectoris; I25.2 Old myocardial infarction; I5A Non-ischemic myocardial injury (non-traumatic); E03.9 Hypothyroidism, unspecified; Z79.899 Other long term (current) drug therapy; Z79.82 Long term (current) use of aspirin; K21.9 Gastro-esophageal reflux disease without esophagitis; Z96.659 Presence of unspecified artificial knee joint; M51.34 Other intervertebral disc degeneration, thoracic region; M51.36 Other intervertebral disc degeneration, lumbar region; X58.XXXA Exposure to other specified factors, initial encounter
CPT/HCPCS: 72072; 72100; 99283